=== PATIENT | female | born 1950 | race Caucasian/White ===

== ENCOUNTER 2018-11-10 06:06 | Emergency (ER) | payer MEDICARE ==
[~2018-11-10] VITALS: Ht 177.8 cm; Wt 72.6 kg
[~2018-11-10 06:06] MED LIST: AMBIEN10 MG PO; ASPIRIN81 MG PO; CELEXA40 MG PO; FAMOTIDINE20 MG PO; LASIX40 MG PO; LISINOPRIL10 MG PO; NEURONTIN300 MG PO; NORCO 10-325 T1 EACH PO; SOMA350 MG PO; XANAX XR1 MG PO; ZOCOR20 MG PO
--- OUTSIDE RECORDS SUMMARY | 2018-11-10 06:09 | XMS REPORT ---
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 Allergies, Adverse Reactions, Alerts Allergy Name Allergy Type Status Severity Reaction(s) Onset Date Inactive Date Treating Clinician Comments Penicillins DA Active U 2018-10-05 00:00:00 Penicillins DA Active U 2018-06-13 00:00:00 Penicillins DA Active U 2018-05-20 00:00:00 Penicillins DA Active U 2018-04-01 00:00:00 Medications This patient has no known medications. Encounters Start Date/Time End Date/Time Encounter Type Admission Type Attending Clinicians Care Facility Care Department Encounter ID 2018-11-11 00:00:00 2018-11-11 00:00:00 Outpatient [facility] [id number] 2018-10-21 08:13:34 2018-10-21 08:13:34 Outpatient [facility] [id number] 2018-09-30 14:19:58 2018-09-30 14:19:58 Outpatient [facility] [id number] 2018-09-27 00:00:00 2018-09-27 00:00:00 Outpatient [facility] [id number] 2018-08-27 00:00:00 2018-08-27 00:00:00 Outpatient [facility] [id number] 2018-08-08 11:59:46 2018-08-08 11:59:46 Outpatient [facility] [id number] 2018-07-24 00:00:00 2018-07-24 00:00:00 Outpatient [facility] [id number] 2018-07-05 00:00:00 2018-07-05 00:00:00 Outpatient [facility] [id number] 2018-07-03 00:00:00 2018-07-03 00:00:00 Outpatient [facility] [id number] 2018-06-26 00:00:00 2018-06-26 00:00:00 Outpatient [facility] [id number] 2018-06-17 00:00:00 2018-06-17 00:00:00 Outpatient [facility] [id number] 2018-06-17 00:00:00 2018-06-17 00:00:00 Outpatient [facility] [id number] 2018-06-14 14:26:44 2018-06-14 14:26:44 Outpatient [facility] [id number] 2018-06-14 00:00:00 2018-06-14 00:00:00 Outpatient [facility] [id number] 2018-06-13 00:00:00 2018-06-13 00:00:00 Outpatient [facility] [id number] 2018-06-13 00:00:00 2018-06-13 00:00:00 Outpatient [facility] [id number] 2018-06-07 00:00:00 2018-06-07 00:00:00 Outpatient [facility] [id number] 2018-05-30 13:45:26 2018-05-30 13:45:26 Outpatient [facility] [id number] 2018-05-27 00:00:00 2018-05-27 00:00:00 Outpatient [facility] [id number] 2018-05-23 15:48:45 2018-05-23 15:48:45 Outpatient [facility] [id number] 2018-05-21 00:00:00 2018-05-21 00:00:00 Outpatient [facility] [id number] 2018-04-27 00:00:00 2018-04-27 00:00:00 Outpatient [facility] [id number] 2018-04-25 00:00:00 2018-04-25 00:00:00 Outpatient [facility] [id number] 2018-04-25 00:00:00 2018-04-25 00:00:00 Outpatient [facility] [id number] 2018-04-23 00:00:00 2018-04-23 00:00:00 Outpatient [facility] [id number] 2018-04-18 00:00:00 2018-04-18 00:00:00 Outpatient [facility] [id number] 2018-04-12 14:48:15 2018-04-12 14:48:15 Outpatient [facility] [id number] 2018-04-10 00:00:00 2018-04-10 00:00:00 Outpatient [facility] [id number] 2018-04-03 09:35:26 2018-04-03 09:35:26 Outpatient [facility] [id number] 2018-04-03 00:00:00 2018-04-03 00:00:00 Outpatient [facility] [id number] 2018-03-28 09:45:10 2018-03-28 09:45:10 Outpatient [facility] [id number] 2018-03-22 10:10:13 2018-03-22 10:10:13 Outpatient [facility] [id number] 2018-03-22 08:45:20 2018-03-22 08:45:20 Outpatient [facility] [id number] 2018-03-18 14:23:59 2018-03-18 14:23:59 Outpatient [facility] [id number] 2018-03-18 00:00:00 2018-03-18 00:00:00 Outpatient [facility] [id number] 2018-03-08 00:00:00 2018-03-08 00:00:00 Outpatient [facility] [id number] 2018-02-28 00:00:00 2018-02-28 00:00:00 Outpatient [facility] [id number] 2018-02-27 14:59:40 2018-02-27 14:59:40 Outpatient [facility] [id number] 2018-02-22 15:07:58 2018-02-22 15:07:58 Outpatient [facility] [id number] 2018-02-15 00:00:00 2018-02-15 00:00:00 Outpatient [facility] [id number] 2018-02-13 11:53:30 2018-02-13 11:53:30 Outpatient [facility] [id number] 2018-02-05 15:58:27 2018-02-05 15:58:27 Outpatient [facility] [id number] 2018-02-05 15:11:12 2018-02-05 15:11:12 Outpatient [facility] [id number] 2017-12-10 10:33:47 2017-12-10 10:33:47 Outpatient [facility] [id number] 2017-11-27 10:23:00 2017-11-27 10:23:00 Outpatient [facility] [id number] 2017-11-20 00:00:00 2017-11-20 00:00:00 Outpatient [facility] [id number] 2017-11-13 00:00:00 2017-11-13 00:00:00 Outpatient [facility] [id number] 2017-10-22 11:08:12 2017-10-22 11:08:12 Outpatient [facility] [id number] 2017-10-22 10:42:13 2017-10-22 10:42:13 Outpatient [facility] [id number] 2017-10-19 10:44:52 2017-10-19 10:44:52 Outpatient [facility] [id number] 2017-10-01 09:13:26 2017-10-01 09:13:26 Outpatient [facility] [id number] 2017-09-24 15:40:28 2017-09-24 15:40:28 Outpatient [facility] [id number] 2017-09-24 11:42:18 2017-09-24 11:42:18 Outpatient [facility] [id number] 2017-09-24 11:41:50 2017-09-24 11:41:50 Outpatient [facility] [id number] 2017-09-24 00:00:00 2017-09-24 00:00:00 Outpatient [facility] [id number] 2017-09-17 00:00:00 2017-09-17 00:00:00 Outpatient [facility] [id number] 2017-09-06 15:17:15 2017-09-06 15:17:15 Outpatient [facility] [id number] 2017-08-30 09:54:10 2017-08-30 09:54:10 Outpatient [facility] [id number] 2017-08-30 07:37:48 2017-08-30 07:37:48 Outpatient [facility] [id number] 2017-08-21 00:00:00 2017-08-21 00:00:00 Outpatient [facility] [id number] 2017-08-15 15:14:39 2017-08-15 15:14:39 Outpatient [facility] [id number] 2017-07-20 08:47:04 2017-07-20 08:47:04 Outpatient [facility] [id number] 2017-07-18 00:00:00 2017-07-18 00:00:00 Outpatient [facility] [id number] 2017-06-13 14:27:45 2017-06-13 14:27:45 Outpatient [facility] [id number] 2017-05-31 13:40:04 2017-05-31 13:40:04 Outpatient [facility] [id number] 2017-05-31 13:13:22 2017-05-31 13:13:22 Outpatient [facility] [id number] 2017-05-08 00:00:00 2017-05-08 00:00:00 Outpatient [facility] [id number] 2017-04-25 00:00:00 2017-04-25 00:00:00 Outpatient [facility] [id number] 2017-04-24 14:11:13 2017-04-24 14:11:13 Outpatient [facility] [id number] 2017-04-23 00:00:00 2017-04-23 00:00:00 Outpatient [facility] [id number] 2017-04-18 10:07:31 2017-04-18 10:07:31 Outpatient [facility] [id number] 2017-04-18 08:24:29 2017-04-18 08:24:29 Outpatient [facility] [id number] 2017-04-09 00:00:00 2017-04-09 00:00:00 Outpatient [facility] [id number] 2017-03-30 00:00:00 2017-03-30 00:00:00 Outpatient [facility] [id number] 2017-03-23 12:45:07 2017-03-23 12:45:07 Outpatient [facility] [id number] 2017-03-15 14:19:07 2017-03-15 14:19:07 Outpatient [facility] [id number] 2017-03-09 00:00:00 2017-03-09 00:00:00 Outpatient [facility] [id number] 2017-02-14 08:46:21 2017-02-14 08:46:21 Outpatient [facility] [id number] 2017-02-12 09:57:44 2017-02-12 09:57:44 Outpatient [facility] [id number] 2017-02-05 09:16:05 2017-02-05 09:16:05 Outpatient [facility] [id number] 2017-01-25 00:00:00 2017-01-25 00:00:00 Outpatient [facility] [id number] 2017-01-19 00:00:00 2017-01-19 00:00:00 Outpatient [facility] [id number] 2017-01-09 10:05:48 2017-01-09 10:05:48 Outpatient [facility] [id number] 2016-12-29 10:31:17 2016-12-29 10:31:17 Outpatient [facility] [id number] 2016-12-29 09:43:28 2016-12-29 09:43:28 Outpatient [facility] [id number] 2016-12-28 00:00:00 2016-12-28 00:00:00 Outpatient [facility] [id number] 2016-12-22 00:00:00 2016-12-22 00:00:00 Outpatient [facility] [id number] 2016-12-21 11:13:11 2016-12-21 11:13:11 Outpatient [facility] [id number] 2016-12-19 15:06:33 2016-12-19 15:06:33 Outpatient [facility] [id number] Results Test Description Test Time Test Comments Text Results Atomic Results Result Comments URINALYSIS COMPLETE 2018-10-05 19:54:00 UA COLOR (test code=COLU) LIGHT YELLOW YELLOW UA APPEARANCE (test code=APPU) CLEAR CLEAR UA GLUCOSE DIPSTICK (test code=DGLUU) NEGATIVE mg/dL NEGATIVE UA BILIRUBIN DIPSTICK (test code=BILU) NEGATIVE mg/dL NEGATIVE UA KETONE DIPSTICK (test code=KETU) Negative mg/dL NEGATIVE UA SPECIFIC GRAVITY (test code=SGU) 1.012 1.001-1.035 UA BLOOD DIPSTICK (test code=MADHURI) 1+ (Small) NEGATIVE UA PH DIPSTICK (test code=KASSIE) 5.0 5.0-8.0 UA PROTEIN DIPSTICK (test code=PROU) Negative mg/dL NEGATIVE UA UROBILINIOGEN DIPSTICK (test code=URO) NEGATIVE mg/dL NEGATIVE UA NITRITE DIPSTICK (test code=KIMBERLY) NEGATIVE NEGATIVE UA LEUKOCYTE ESTERASE W REFLEX (test code=LEUUR) TRACE NEGATIVE UA WBC (test code=WBCU) 6-10 #/HPF 0-5 UA RBC (test code=RBCU) 0-2 #/HPF 0-5 UA EPITHELIAL CELLS (test code=EPIU) FEW per HPF FEW UA BACTERIA (test code=BACU) NONE SEEN #/HPF NONE UA MUCUS (test code=MUCU) FEW #/LPF FEW Urine Source? Clean CatchDRUGS OF ABUSE SCREEN [id number] 19:54:00* Test Item Value Reference Range Comments URN COCAINE (test code=COCAURN) NEGATIVE <300 ng/mL URN CANNABINOIDS (test code=CANNABURN) POSITIVE <50 ng/mL This test provides only a preliminary test result. A morespecific alternate chemical method must be used in order toobtain a confirmed analytical result. Gas chromatography/mass spectrometry (GC/MS) is thepreferred confirmatory method. Other chemical confirmationmethods are available. Clinical consideration and professional judgment should be applied to any drug of abusetest result, particularly when preliminary positive resultsare used.Unconfirmed screening results must not be used fornon-medical purposes (e.g., employment testing, legaltesting). URN AMPHETAMINE (test code=AMPHETURN) NEGATIVE <1000 ng/mL URN BARBITURATE (test code=BARBITURN) NEGATIVE <200 ng/mL URN BENZODIAZEPINE (test code=BENZOURN) NEGATIVE <200 ng/mL URN OPIATES (test code=OPIATURN) POSITIVE <300 ng/mL This test provides only a preliminary test result. A morespecific alternate chemical method must be used in order toobtain a confirmed analytical result. Gas chromatography/mass spectrometry (GC/MS) is thepreferred confirmatory method. Other chemical confirmationmethods are available. Clinical consideration and professional judgment should be applied to any drug of abusetest result, particularly when preliminary positive resultsare used.Unconfirmed screening results must not be used fornon-medical purposes (e.g., employment testing, legaltesting). URN PHENCYCLIDINE (PCP) (test code=PHENCURN) NEGATIVE <25 ng/mL URN METHADONE (test code=METHAURN) NEGATIVE <300 ng/mL Urine Source? Clean CatchBASIC METABOLIC [id number] 19:42:00* Test Item Value Reference Range Comments SODIUM (test code=NA) 139 mmol/L 136-145 POTASSIUM (test code=K) 3.7 mmol/L 3.5-5.1 CHLORIDE (test code=CL) 106.0 mmol/L 98-107 CARBON DIOXIDE (test code=CO2) 26.0 mmol/L 21-32 ANION GAP (test code=GAP) 10.7 10-20 GLUCOSE (test code=GLU) 105 mg/dL 74-106 BLOOD UREA NITROGEN (test code=BUN) 10 mg/dL 7-18 GLOMERULAR FILTRATION RATE (test code=GFR) > 60 mL/min >=60 Estimated GFR by using Modified MDRD formula.Chronic kidney disease is defined as either kidney damageor GFR <60 mL/min/1.73 m2 for >3 months. CREATININE (test code=CREAT) 0.90 mg/dL 0.55-1.02 Note change in reference range due to change in reagent. BUN/CREATININE RATIO (test code=BUN/CREA) 11.7 10-20 CALCIUM (test code=CA) 8.8 mg/dL 8.5-10.1 HEPATIC FUNCTION [id number] 19:42:00* Test Item Value Reference Range Comments TOTAL PROTEIN (test code=PROT) 7.3 gram/dL 6.4-8.2 ALBUMIN (test code=ALB) 3.5 g/dL 3.4-5.0 GLOBULIN (test code=GLOB) 3.8 gram/dL 2.7-4.2 ALBUMIN/GLOBULIN RATIO (test code=A/G) 0.9 0.75-1.50 BILIRUBIN TOTAL (test code=BILT) 0.30 mg/dL 0.0-1.0 BILIRUBIN DIRECT (test code=BILD) 0.07 mg/dL 0.0-0.20 SGOT/AST (test code=AST) 20 IUnit/L 15-37 SGPT/ALT (test code=ALT) 22 IUnit/L 12-78 ALKALINE PHOSPHATASE TOTAL (test code=ALKP) 56 IUnit/L 45-117 Note change in reference range due to change in reagent. [id number] 19:42:00* Test Item Value Reference Range Comments ACETAMINOPHEN (test code=ACET) < 10 mcg/mL 10-30 A RANGE OF 10-30 mcg/mL IS A THERAPEUTIC RANGE. TOXIC CONCENTRATIONS: >150 mcg/mL AT 4 HOURS AFTER INGESTION >=50 mcg/mL AT 12 HOURS AFTER INGESTION [id number] 19:42:00* Test Item Value Reference Range Comments SALICYLATE (test code=JAZLYN) 1.9 mg/dL 2.8-20.0 [id number] 19:42:00* Test Item Value Reference Range Comments ALCOHOL (test code=ALC) < 3 mg/dL 0.0-3.0 INTERPRETIVE DATA NOTE: POSITIVE SCREENING RESULTS SHOULD BE CONSIDERED PRESUMPTIVE.WHEN COLLECTED FOR MEDICAL PURPOSES ONLY. SPECIMEN WILL NOTBE COLLECTED BY CHAIN OF CUSTODY.IF A CONFIRMATION OF POSITIVE RESULTS IS DESIRED, ACONFIRMATION TEST MUST BE REQUESTED BY THE PHYSICIAN AT ANADDITIONAL CHARGE TO THE PATIENT. URINALYSIS [id number] 18:40:00* Test Item Value Reference Range Comments UA COLOR (test code=COLU) LIGHT YELLOW YELLOW UA APPEARANCE (test code=APPU) CLEAR CLEAR UA GLUCOSE DIPSTICK (test code=DGLUU) NEGATIVE mg/dL NEGATIVE UA BILIRUBIN DIPSTICK (test code=BILU) NEGATIVE mg/dL NEGATIVE UA KETONE DIPSTICK (test code=KETU) Negative mg/dL NEGATIVE UA SPECIFIC GRAVITY (test code=SGU) 1.012 1.001-1.035 UA BLOOD DIPSTICK (test code=MADHURI) 1+ (Small) NEGATIVE UA PH DIPSTICK (test code=KASSIE) 5.0 5.0-8.0 UA PROTEIN DIPSTICK (test code=PROU) Negative mg/dL NEGATIVE UA UROBILINIOGEN DIPSTICK (test code=URO) NEGATIVE mg/dL NEGATIVE UA NITRITE DIPSTICK (test code=KIMBERLY) NEGATIVE NEGATIVE UA LEUKOCYTE ESTERASE W REFLEX (test code=LEUUR) TRACE NEGATIVE UA WBC (test code=WBCU) 6-10 #/HPF 0-5 UA RBC (test code=RBCU) 0-2 #/HPF 0-5 UA EPITHELIAL CELLS (test code=EPIU) FEW per HPF FEW UA BACTERIA (test code=BACU) NONE SEEN #/HPF NONE UA MUCUS (test code=MUCU) FEW #/LPF FEW Urine Source? Clean CatchDRUGS OF ABUSE SCREEN [id number] 18:40:00* Test Item Value Reference Range Comments URN COCAINE (test code=COCAURN) <300 ng/mL URN CANNABINOIDS (test code=CANNABURN) <50 ng/mL URN AMPHETAMINE (test code=AMPHETURN) <1000 ng/mL URN BARBITURATE (test code=BARBITURN) <200 ng/mL URN BENZODIAZEPINE (test code=BENZOURN) <200 ng/mL URN OPIATES (test code=OPIATURN) <300 ng/mL URN PHENCYCLIDINE (PCP) (test code=PHENCURN) <25 ng/mL URN METHADONE (test code=METHAURN) <300 ng/mL Urine Source? Clean CatchURINALYSIS [id number] 18:33:00* Test Item Value Reference Range Comments UA COLOR (test code=COLU) LIGHT YELLOW YELLOW UA APPEARANCE (test code=APPU) CLEAR CLEAR UA GLUCOSE DIPSTICK (test code=DGLUU) NEGATIVE mg/dL NEGATIVE UA BILIRUBIN DIPSTICK (test code=BILU) NEGATIVE mg/dL NEGATIVE UA KETONE DIPSTICK (test code=KETU) Negative mg/dL NEGATIVE UA SPECIFIC GRAVITY (test code=SGU) 1.012 1.001-1.035 UA BLOOD DIPSTICK (test code=MADHURI) 1+ (Small) NEGATIVE UA PH DIPSTICK (test code=KASSIE) 5.0 5.0-8.0 UA PROTEIN DIPSTICK (test code=PROU) Negative mg/dL NEGATIVE UA UROBILINIOGEN DIPSTICK (test code=URO) NEGATIVE mg/dL NEGATIVE UA NITRITE DIPSTICK (test code=KIMBERLY) NEGATIVE NEGATIVE UA LEUKOCYTE ESTERASE W REFLEX (test code=LEUUR) TRACE NEGATIVE UA WBC (test code=WBCU) per HPF 0-5 Urine Source? Clean CatchDRUGS OF ABUSE SCREEN [id number] 18:33:00* Test Item Value Reference Range Comments URN COCAINE (test code=COCAURN) <300 ng/mL URN CANNABINOIDS (test code=CANNABURN) <50 ng/mL URN AMPHETAMINE (test code=AMPHETURN) <1000 ng/mL URN BARBITURATE (test code=BARBITURN) <200 ng/mL URN BENZODIAZEPINE (test code=BENZOURN) <200 ng/mL URN OPIATES (test code=OPIATURN) <300 ng/mL URN PHENCYCLIDINE (PCP) (test code=PHENCURN) <25 ng/mL URN METHADONE (test code=METHAURN) <300 ng/mL Urine Source? Clean CatchCBC W/O [id number] 18:28:00* Test Item Value Reference Range Comments WHITE BLOOD CELL (test code=WBC) 7.5 K/mm3 4.5-12.5 RED BLOOD CELL (test code=RBC) 4.10 mill/mm3 3.7-5.2 HEMOGLOBIN (test code=HGB) 12.1 gram/dL 11.5-15.5 HEMATOCRIT (test code=HCT) 37.6 % 36.0-46.0 MEAN CELL VOLUME (test code=MCV) 91.7 fL 80-98 MEAN CELL HGB (test code=MCH) 29.5 picogram 27.0-33.0 MEAN CELL HGB CONCETRATION (test code=MCHC) 32.2 gram/dL 33.0-36.0 RED CELL DISTRIBUTION WIDTH (test code=RDW) 13.3 % 11.6-16.2 PLATELET COUNT (test code=PLT) 265 K/mm3 150-450 MEAN PLATELET VOLUME (test code=MPV) 11.1 fL 6.7-11.0 CBC W/O [id number] 18:26:00* Test Item Value Reference Range Comments WHITE BLOOD CELL (test code=WBC) K/mm3 4.5-12.5 RED BLOOD CELL (test code=RBC) mill/mm3 3.7-5.2 HEMOGLOBIN (test code=HGB) 12.1 gram/dL 11.5-15.5 HEMATOCRIT (test code=HCT) 37.6 % 36.0-46.0 MEAN CELL VOLUME (test code=MCV) fL 80-98 MEAN CELL HGB (test code=MCH) picogram 27.0-33.0 MEAN CELL HGB CONCETRATION (test code=MCHC) gram/dL 33.0-36.0 RED CELL DISTRIBUTION WIDTH (test code=RDW) % 11.6-16.2 PLATELET COUNT (test code=PLT) K/mm3 150-450 MEAN PLATELET VOLUME (test code=MPV) fL 6.7-11.0 - CTA [id number] 10:15:00 Name: JOSE MIGUEL BLAS [facility] : 1950 Age/S: 68 / F [address] [facility] Unit #: [id number] Loc: [place] Sharma [address] Phys: Alivia Escobedo NP Acct: [id number] Dis Date: Status: ADM IN PHONE #: [phone] Exam Date: 09/25/2018947 FAX #: [phone] Reason: COPD, SOB, R/O PE EXAMS: CPT CODE: [id number] CTA CHEST 78642 HISTORY: COPD with shortness of breath. COMPARISON: Chest x-ray from previous day. CTA CHEST: 100 mL of Isovue-370. Automated exposure control. 3-D images. No aortic aneurysm. No dissection. No pulmonary embolism. Well-opacified SVC. Well-opacified neck vasculature. Thyroid glands are normal. Esophageal wall is not thickened. No pathologic adenopathy. Cardiac silhouette is mildly enlarged. No pericardial effusion. Visualized upper abdomen is unremarkable. Subcutaneous tissues and the musculature are normal in appearance. No lytic or blastic lesions are noted within the bony skeleton. The lungs are clear of infiltrates, effusion or congestion. Groundglass opacities within the upper lobes inferiorly is nonspecific finding. Dependent changes. No bronchiectasis, honeycombing or fibrosis or endobronchial lesions. IMPRESSION: No pulmonary embolism with unremarkable aorta. Minimal groundglass opacities in the upper lobes medially of unclear significance without consolidation or effusion or congestion. No pathologic adenopathy. at 1015 Reported and signed by: Kali Bee M.D. CC: Alivia Hayes NP; Rabia Turpin MD; Vick Alegria MD Technologist:Marco Antonio Denney RT(R),(MR),(CT); CTDI: DLP: Trnscb Date/Time: 09/25/2018 (1015) t .SDR.TH4 Orig Print D/T: S: 09/25/2018 (1018) CTDI: DLP: PAGE 1 Signed Report BASIC METABOLIC [id number] 06:00:00* Test Item Value Reference Range Comments SODIUM (test code=NA) 141 mmol/L 136-145 POTASSIUM (test code=K) 3.9 mmol/L 3.5-5.1 CHLORIDE (test code=CL) 107.0 mmol/L 98-107 CARBON DIOXIDE (test code=CO2) 26.0 mmol/L 21-32 ANION GAP (test code=GAP) 11.9 10-20 GLUCOSE (test code=GLU) 137 mg/dL 74-106 BLOOD UREA NITROGEN (test code=BUN) 11 mg/dL 7-18 GLOMERULAR FILTRATION RATE (test code=GFR) > 60 mL/min >=60 Estimated GFR by using Modified MDRD formula.Chronic kidney disease is defined as either kidney damageor GFR <60 mL/min/1.73 m2 for >3 months. CREATININE (test code=CREAT) 0.70 mg/dL 0.55-1.02 Note change in reference range due to change in reagent. BUN/CREATININE RATIO (test code=BUN/CREA) 15.6 10-20 CALCIUM (test code=CA) 8.9 mg/dL 8.5-10.1 BASIC METABOLIC [id number] 05:35:00* Test Item Value Reference Range Comments SODIUM (test code=NA) 141 mmol/L 136-145 POTASSIUM (test code=K) 3.9 mmol/L 3.5-5.1 CHLORIDE (test code=CL) 107.0 mmol/L 98-107 CARBON DIOXIDE (test code=CO2) mmol/L 21-32 ANION GAP (test code=GAP) 10-20 GLUCOSE (test code=GLU) mg/dL 74-106 BLOOD UREA NITROGEN (test code=BUN) mg/dL 7-18 GLOMERULAR FILTRATION RATE (test code=GFR) mL/min >=60 CREATININE (test code=CREAT) mg/dL 0.55-1.02 BUN/CREATININE RATIO (test code=BUN/CREA) 10-20 CALCIUM (test code=CA) mg/dL 8.5-10.1 [id number] 20:45:00* Test Item Value Reference Range Comments TROPONIN-I (test code=TROPI) 0.040 ng/mL 0-0.045 COMMENTS TO RENT AND HOUSING INVESTIGATOR: COLLECT 3 HOURS AFTER PREVIOUS [id number] 16:49:00* Test Item Value Reference Range Comments TROPONIN-I (test code=TROPI) 0.077 ng/mL 0-0.045 COMMENTS TO RENT AND HOUSING INVESTIGATOR: COLLECT 3 HOURS AFTER PREVIOUS [id number] 16:28:00* Test Item Value Reference Range Comments GLYCOSYLATED HEMOGLOBIN (HA1C) (test code=GLYHGB) 5.6 % HbA1 4.8-6.0 ESTIMATED AVERAGE GLUCOSE (test code=EAG) 114 MG/DL LIPID PROFILE (CORONARY RISK)2018-09-24 14:51:00* Test Item Value Reference Range Comments TRIGLYCERIDES (test code=TRIG) 82 mg/dL 20-150 CHOLESTEROL (test code=CHOL) 192 mg/dL 0-200 CHOLESTEROL/HDL RATIO (test code=CHOLHDL) 2.0 RATIO 0-4.9 RISK ASSOCIATED WITH CHOL/HDL RATIOS: Risk Male Female1/2 AVERAGE 3.43 3.27AVERAGE 4.97 4.442X AVERAGE 9.55 7.053X AVERAGE 23.39 11.04 REFERENCE VALUE IS RELATED TO RISK LEVELS ASRECOMMENDED BY THE OLEKSANDR. HEART, LUNG, AND BLOOD INST. HDL CHOLESTEROL (test code=HDL) 65 mg/dL 40-60 LIPOPROTEIN LDL (test code=LDL) 111 mg/dL 100-129 RN PERSONNEL, CONTACT PHYSICIAN IMMEDIATELY IF THIS IS A STROKE, AMI OR CAROTID STENOSIS PATIENT WHEN THE LDL >100 (1ST OCCURENCE, THIS ADMISSION) Reference Interval: mg/dL mmol/L Optimal <100 <2.6Near/above optimal 100-129 2.6- 3.3Borderline High 130-159 3.4-4.1High 160-189 4.1-4.9Very High >=190 >=4.9=========This LDL result is a direct measurement.========= THYROID PROFILE [id number] 14:51:00* Test Item Value Reference Range Comments T3 UPTAKE (test code=T3UP) 36.0 % 30.0-40.0 T4 (THYROXINE) (test code=T4) 9.5 ug/dL 4.5-13.9 T7 (FREE THYROXINE INDEX) (test code=T7) 3.42 FTI 1.3-5.1 THYROID STIMULATING HORMONE (test code=TSH) 1.240 uIU/mL 0.36-3.74 TSH REFERENCE RANGES: EUTHYROID: 0.35 - 4.3 mIU/mL HYPO : > 5.5 mIU/mL HYPER : < 0.35 mIU/mL BASIC METABOLIC [id number] 10:51:00* Test Item Value Reference Range Comments SODIUM (test code=NA) 141 mmol/L 136-145 POTASSIUM (test code=K) 3.3 mmol/L 3.5-5.1 CHLORIDE (test code=CL) 106.0 mmol/L 98-107 CARBON DIOXIDE (test code=CO2) 25.0 mmol/L 21-32 ANION GAP (test code=GAP) 13.3 10-20 GLUCOSE (test code=GLU) 151 mg/dL 74-106 BLOOD UREA NITROGEN (test code=BUN) 9 mg/dL 7-18 GLOMERULAR FILTRATION RATE (test code=GFR) > 60 mL/min >=60 Estimated GFR by using Modified MDRD formula.Chronic kidney disease is defined as either kidney damageor GFR <60 mL/min/1.73 m2 for >3 months. CREATININE (test code=CREAT) 0.80 mg/dL 0.55-1.02 Note change in reference range due to change in reagent. BUN/CREATININE RATIO (test code=BUN/CREA) 10.7 10-20 CALCIUM (test code=CA) 8.3 mg/dL 8.5-10.1 HEPATIC FUNCTION [id number] 10:51:00* Test Item Value Reference Range Comments TOTAL PROTEIN (test code=PROT) 7.4 gram/dL 6.4-8.2 ALBUMIN (test code=ALB) 3.5 g/dL 3.4-5.0 GLOBULIN (test code=GLOB) 3.9 gram/dL 2.7-4.2 ALBUMIN/GLOBULIN RATIO (test code=A/G) 0.9 0.75-1.50 BILIRUBIN TOTAL (test code=BILT) 0.40 mg/dL 0.0-1.0 BILIRUBIN DIRECT (test code=BILD) 0.07 mg/dL 0.0-0.20 SGOT/AST (test code=AST) 27 IUnit/L 15-37 SGPT/ALT (test code=ALT) 28 IUnit/L 12-78 ALKALINE PHOSPHATASE TOTAL (test code=ALKP) 65 IUnit/L 45-117 Note change in reference range due to change in reagent. [id number] 10:51:00* Test Item Value Reference Range Comments LIPASE (test code=LIP) 80 U/L 73.0-393.0 [id number] 10:51:00* Test Item Value Reference Range Comments TROPONIN-I (test code=TROPI) 0.101 ng/mL 0-0.045 Results called to [id number] by DAGO 09/24/18 1050Critical results verified and read back by Nurse? Y B-TYPE NATRIURETIC [id number] 10:47:00* Test Item Value Reference Range Comments B-TYPE NATRIURETIC PEPTIDE (test code=BNP) 56.79 pgram/mL 0-100 BASIC METABOLIC [id number] 10:36:00* Test Item Value Reference Range Comments SODIUM (test code=NA) 141 mmol/L 136-145 POTASSIUM (test code=K) 3.3 mmol/L 3.5-5.1 CHLORIDE (test code=CL) 106.0 mmol/L 98-107 CARBON DIOXIDE (test code=CO2) mmol/L 21-32 ANION GAP (test code=GAP) 10-20 GLUCOSE (test code=GLU) mg/dL 74-106 BLOOD UREA NITROGEN (test code=BUN) mg/dL 7-18 GLOMERULAR FILTRATION RATE (test code=GFR) mL/min >=60 CREATININE (test code=CREAT) mg/dL 0.55-1.02 BUN/CREATININE RATIO (test code=BUN/CREA) 10-20 CALCIUM (test code=CA) mg/dL 8.5-10.1 HEPATIC FUNCTION [id number] 10:36:00* Test Item Value Reference Range Comments TOTAL PROTEIN (test code=PROT) gram/dL 6.4-8.2 ALBUMIN (test code=ALB) g/dL 3.4-5.0 GLOBULIN (test code=GLOB) gram/dL 2.7-4.2 ALBUMIN/GLOBULIN RATIO (test code=A/G) 0.75-1.50 BILIRUBIN TOTAL (test code=BILT) mg/dL 0.0-1.0 BILIRUBIN DIRECT (test code=BILD) mg/dL 0.0-0.20 SGOT/AST (test code=AST) IUnit/L 15-37 SGPT/ALT (test code=ALT) IUnit/L 12-78 ALKALINE PHOSPHATASE TOTAL (test code=ALKP) IUnit/L 45-117 [id number] 10:36:00* Test Item Value Reference Range Comments LIPASE (test code=LIP) U/L 73.0-393.0 [id number] 10:36:00* Test Item Value Reference Range Comments TROPONIN-I (test code=TROPI) ng/mL 0-0.045 CBC W/O [id number] 10:11:00* Test Item Value Reference Range Comments WHITE BLOOD CELL (test code=WBC) 13.7 K/mm3 4.5-12.5 RED BLOOD CELL (test code=RBC) 4.12 mill/mm3 3.7-5.2 HEMOGLOBIN (test code=HGB) 12.3 gram/dL 11.5-15.5 HEMATOCRIT (test code=HCT) 38.6 % 36.0-46.0 MEAN CELL VOLUME (test code=MCV) 93.7 fL 80-98 MEAN CELL HGB (test code=MCH) 29.9 picogram 27.0-33.0 MEAN CELL HGB CONCETRATION (test code=MCHC) 31.9 gram/dL 33.0-36.0 RED CELL DISTRIBUTION WIDTH (test code=RDW) 13.2 % 11.6-16.2 PLATELET COUNT (test code=PLT) 236 K/mm3 150-450 MEAN PLATELET VOLUME (test code=MPV) 11.1 fL 6.7-11.0 CBC W/O [id number] 10:08:00* Test Item Value Reference Range Comments WHITE BLOOD CELL (test code=WBC) K/mm3 4.5-12.5 RED BLOOD CELL (test code=RBC) mill/mm3 3.7-5.2 HEMOGLOBIN (test code=HGB) 12.3 gram/dL 11.5-15.5 HEMATOCRIT (test code=HCT) 38.6 % 36.0-46.0 MEAN CELL VOLUME (test code=MCV) fL 80-98 MEAN CELL HGB (test code=MCH) picogram 27.0-33.0 MEAN CELL HGB CONCETRATION (test code=MCHC) gram/dL 33.0-36.0 RED CELL DISTRIBUTION WIDTH (test code=RDW) % 11.6-16.2 PLATELET COUNT (test code=PLT) K/mm3 150-450 MEAN PLATELET VOLUME (test code=MPV) fL 6.7-11.0 TROPONIN I [id number] 10:02:00* Test Item Value Reference Range Comments TROPONIN I RAPID (test code=TROPIRAP) 0.02 ng/mL <0.08 Please Note New Reference Range 0.00-0.079 ng/mL - Negative>or=0.08 ng/mL - Positive The use of serial sampling and testing protocol is arecommended practice.An elevated troponin level alone is often not sufficient fordiagnosis of myocardial infarction. Troponin results obtained by different assays may vary.Evaluation of the extent of myocardial damage based onincrease of troponin would be valid only if similarmethodology is used. - XR CHEST 1 [id number] 09:50:00 FAX: Vick Alegria MD [phone] [place]: St: REG FAX: Chandra Leonard Name: JOSE MIGUEL BLAS [facility] : 1950 Age/S: 68/F Rosa Lim Formerly [facility], [facility] Unit #: [id number] Loc: [place] [place] [address] Phys: Chandra Leonard MD Acct: [id number] Dis Date: Status: REG ER PHONE #: [phone] Exam Date: 09/24/2018 0942 FAX #: [phone] Reason: CHEST PAIN EXAMS: CPT CODE: [id number] XR CHEST 1 V 01902 HISTORY: Chest pain. COMPARISON: Chest x-ray from December 02, 2013. No acute infiltrates, effusion or congestion is noted. COPD. Mild cardiomegaly. IMPRESSION: No acute infiltrates, effusion or congestion. at 0950 Reported and signed by: Kali Bee M.D. CC: Vick Alegria MD; Chandra Leonard MD Technologist: Osito DAVID(R) Trnscrd Date/Time/By: 09/24/2018 (2050) : By: [email or web address] Orig Print D/T: S: 09/24/2018 (1053) PAGE 1 Signed Report
--- OUTSIDE RECORDS SUMMARY | 2018-11-10 06:09 | XMS REPORT | Summary of Care ---
Author Author KASANDRA Gracia, [facility] Organization Unknown Address Unknown Phone Unavailable Care Team Providers Care Base Filler Name Role Phone R.N. 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 Low back pain (724.2, M54.5) Status: Active Right knee pain (719.46, M25.561) Status: Active Abnormality of gait and mobility (781.2, R26.9) Status: Active Pain of right upper extremity (729.5, M79.601) Status: Active Acute hip pain, right (719.45, M25.551) Status: Active Ataxia (781.3, R27.0) Status: Active Fall at home (E888.9, W19.XXXA) Status: Active Traumatic injury of head, initial encounter (959.01, S09.90XA) Status: Active Medications Name Dates Details Medications not documented Allergies and Adverse Reactions Name Dates Details Allergy history not documented Status: Procedures Procedure Dates Details XRAY Humerus AP lateral 04104 Date: 15-May-2018 XRAY Hip min 2 views 23175 Date: 15-May-2018 MRI Brain wo contrast 26368 Date: 15-May-2018 Immunization Name Dates Details Immunizations not documented Social History Name Dates Details Unknown if ever smoked Vital Signs Date Test Result Details No Known Vitals to report Results Date Description Value Details [id number] XRAY Humerus AP lateral 81752 Humerus AP lateral SEE NOTES Comments: EXAM: XR HUMERUS 2 VIEWSDATE: 05/15/2018 3:23 PM CDTINDICATION: pain in right arm. - humerus xrCOMPARISON: NoneTECHNIQUE: AP and lateral radiographs of the humerusLaterality: RightFINDINGS: No acute fracture or malalignment is identified. No narrowing ofsubacromial space. Small osteophytes of the shoulder.No soft tissue abnormality is identified.IMPRESSION: Normal exam of the right humerus.--Read by: Eduardo Roca MDDictated Date/time: 05/15/18 16:23Electronically Signed by: Eduardo Roca MD 05/15/1816:23FINAL REPORT [id number] Hip 2/3 views uni DX SEE NOTES Comments: EXAM: XR HIP 2 VIEW AND AP PELVISDATE: 05/15/2018 3:23 PM CDTINDICATION: pain in right hip - hip xrCOMPARISON: Right hip series 07/26/2017TECHNIQUE: 2 views of the hip and a single AP radiograph of the pelvisLaterality: RightFINDINGS: No acute bone abnormality identified. Unchanged, satisfactoryappearance of right total hip arthroplasty. No hardware complicationidentified. Visualized portions of left total hip arthroplasty is satisfactoryin appearance.Severe spondylosis of lower lumbar spine.IMPRESSION: Unchanged, satisfactory appearance of right total hip arthroplasty.--Read by: Eduardo Roca MDDictated Date/time: 05/15/18 16:24Electronically Signed by: Eduardo Roca MD 05/15/1816:25FINAL REPORT [id number] MRI Brain wo contrast [id number] Brain wo contrast MRI SEE NOTES Comments: EXAM: Brain wo contrast MRIDATE: 05/15/2018 16:05INDICATION: ataxia, unspecified. unspecified fall, initial encounter.unspecified injury of head, initial encounter. .COMPARISON: CT brain 02/17/2018TECHNIQUE: Multiplanar multisequence images of the brain were obtained withoutcontrast administration.DISCUSSION:Few hyperintense T2 lesions in the supratentorial white matter consistent withsmall vessel disease. No acute hemorrhage, hydrocephalus or midline shift. Norestricted diffusion.Partial empty sella. The pineal region, craniocervical junction, orbits andinternal auditory canals are unremarkable. Major intracranial flow voids arewell- maintained.Opacification of some paranasal sinuses.IMPRESSION:No acute intracranial abnormality. Partial empty sella.--Read by: Magaly Cheek MDDictated Date/time: 05/16/18 00:27Electronically Signed by: Magaly Cheek MD 05/16/1800:34FINAL REPORT Plan of Care Name Dates Details Planned Observations Planned Goals not documented Planned Encounters Neurology Referral Appointment; DONNIE MAHONEY D.O. On: 11-Jun-2018 10:00 Instructions Name Dates Details Instructions not documented Encounters Appointment; CONTRERAS SLAUGHTER M.D. Encounter Diagnosis: Problem not documented On: 18-Feb-2018 11:00 Appointment; CONTRERAS SLAUGHTER M.D. Encounter Diagnosis: Problem not documented On: 02-Apr-2018 8:30 Appointment; CONTRERAS SLAUGHTER M.D. Encounter Diagnosis: Problem not documented On: 24-Apr-2018 9:00 Appointment; CONTRERAS SLAUGHTER M.D. Encounter Diagnosis: Problem not documented On: 09-May-2018 9:30 Appointment; CONTRERAS SLAUGHTER M.D. Encounter Diagnosis: Problem not documented On: 15-May-2018 14:30 Appointment; CONTRERAS SLAUGHTER M.D. Encounter Diagnosis: Problem not documented On: 22-May-2018 13:30 Appointment; CONTRERAS SLAUGHTER M.D. Encounter Diagnosis: Problem not documented On: 29-May-2018 13:00 Appointment; CONTRERAS SLAUGHTER M.D. Encounter Diagnosis: Problem not documented On: 05-Jun-2018 13:00
--- NOTE | 2018-11-10 06:19 | NUR ---
PT STATES SHE ALSO HAS DENTAL CARIES AND REQUESTING RX FOR ANTIBX SO SHE CAN GO TO DENTIST NEXT WEEK
--- OUTSIDE RECORDS SUMMARY | 2018-11-10 06:41 | XMS REPORT | Clinical Summary ---
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 MICROSCOPIC (04/12/2018 3:31 PM CDT) WBC >50 (H) 0 - 5 /HPF [facility] RBC 11-21 0 - 4 /HPF [facility] Epithelial Cell <1 /HPF [facility] Bacteria Moderate [facility] Performing Organization Address [facility] Phone Number JOOR [facility] * UA CHEMISTRIES (04/12/2018 3:31 PM CDT) Only the most recent of 2 results within the time period is included. Color Yellow [facility] Clarity Clear [facility] Spec [place] 1.010 1.001 - 1.035 [facility] pH 6.5 5 - 8 [facility] Protein Negative NEG [facility] Glucose Negative NEG [facility] Ketone Negative NEG [facility] Bilirubin Negative NEG [facility] Nitrate Negative NEG [facility] Urobilinogen 0.2 0.2 - 1.0 EU/dL [facility] Leukocyte 2+ (A) NEG [facility] Blood 2+ (A) NEG [facility] Specimen Urine Performing Organization Address [facility] Phone Number [facility] * URINE CULTURE (04/12/2018 3:20 PM CDT) Only the most recent of 2 results within the time period is included. Spec Urine [facility] Description Order Comments None [facility] Culture 1,000-10,000 CFU/ml MICROBIOLOGY Streptococcus species Report Status Final 04/14/2018 MICROBIOLOGY Specimen Urine - URINE Performing Organization Address [facility] Phone Number VINAY [facility] BT MICROBIOLOGY * CT HEAD W/O CONTRAST (04/03/2018 10:36 AM CDT) Impressions Performed At IMPRESSION: SMS No acute abnormalities. No changes when compared to the previous studies. Chronic findings: 1.Mild generalized volume loss. 2.Mild supratentorial white matter small vessel ischemic changes. 3.Incidental atherosclerotic calcifications in the carotid siphons. Signed By: Haider Akhtar MD, 04/03/2018 11:04 AM Narrative Performed At Exam : Head CT without contrast SMS History: multiple falls, headache Comparison studies: Head CT on 02/02/2016, cervical and intracranial CTAs on 11/17/2016. Technique: Axial scans were obtained from skull base to the vertex. Coronal and sagittal reconstructions obtained from the axial data. IV Contrast: None Complications: None Radiation Dose: Total DLP: 859.97 mGy*cm. Estimated Effective Dose: DLP x 0.0021 mSv FINDINGS: See impression Procedure Note Interface, Rad/Mammog In - 04/03/2018 11:09 AM CDT Exam : Head CT without contrast History: multiple falls, headache Comparison studies: Head CT on 02/02/2016, cervical and intracranial CTAs on 11/17/2016. Technique: Axial scans were obtained from skull base to the vertex. Coronal and sagittal reconstructions obtained from the axial data. IV Contrast: None Complications: None Radiation Dose: Total DLP: 859.97 mGy*cm. Estimated Effective Dose: DLP x 0.0021 mSv FINDINGS: See impression IMPRESSION IMPRESSION: No acute abnormalities. No changes when compared to the previous studies. Chronic findings: 1. Mild generalized volume loss. 2. Mild supratentorial white matter small vessel ischemic changes. 3. Incidental atherosclerotic calcifications in the carotid siphons. Signed By: Haider Akhtar MD, 04/03/2018 11:04 AM Performing Organization Address [facility] Phone Number SMS * CREATININE (03/22/2018 10:06 AM CDT) Creatinine 1.10 0.6 - 1.2 mg/dL BT [facility] 1 GFR, Estimated 49 mL/min/1.73 m2 BT [facility] 1 GFR, Estim, 60 mL/min/1.73 m2 BT [facility] Afr-Am 1 Specimen Blood Performing Organization Address [facility] Phone Number MISYS [facility] 1 * 12 LEAD EKG (03/22/2018 9:23 AM CDT) 12 LEAD EKG FOR [facility] Test Date:2018-03-22 Pat Name: JOSE MIGUEL Vega partment: Room: 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 Measurements Intervals [place] Rate: 64 P:62 WI: 160 QRS: 42 QRSD: 92 T:74 QT: 427 QTc:441 Interpretive Statements SINUS RHYTHM Electronically Signed On 03-22-18 10:20:40 CDT by Laurence Hughes M.D. Performing Organization Address [facility] Phone Number SMS * LIVER PROFILE (03/22/2018 9:22 AM CDT) Only the most recent of 2 results within the time period is included. T Protein 7.1 6.0 - 8.3 g/dL BT [facility] 1 Albumin 4.5 3.7 - 5.3 g/dL BT [facility] 1 T Bilirubin 0.4 0.2 - 1.2 mg/dL BT [facility] 1 Alk Phos 54 34 - 104 U/L BT [facility] 1 AST 25 13 - 39 U/L BT MAIN[facility] 1 ALT 20 7 - 52 U/L BT [facility] 1 D Bilirubin 0.1 0.0 - 0.2 mg/dL BT [facility] 1 Specimen Blood Performing Organization Address [facility] Phone Number MISYS BT MAIN-STATION 1 * BASIC METABOLIC PANEL (03/22/2018 9:22 AM CDT) Only the most recent of 2 results within the time period is included. CO2 28 21 - 31 mmol/L BT [facility] 1 Chloride 103 98 - 107 mmol/L BT [facility] 1 Potassium 4.4 3.5 - 5.1 mmol/L BT [facility] 1 Sodium 141 136 - 145 mmol/L BT [facility] 1 Glucose 94 70 - 110 mg/dL BT [facility] 1 Urea Nitrogen 16 7 - 25 mg/dL BT [facility] 1 Creatinine 1.10 0.6 - 1.2 mg/dL BT [facility] 1 Anion Gap 10 BT [facility]IN[facility] 1 Calcium 9.7 8.6 - 10.3 mg/dL BT [facility] 1 GFR, Estimated 49 mL/min/1.73 m2 BT [facility]IN[facility] 1 GFR, Estim, 60 mL/min/1.73 m2 BT [facility] Afr-Am 1 Specimen Blood Performing Organization Address [facility] Phone Number JOOR [facility] 1 * METHYLMALONIC ACID (02/05/2018 3:54 PM CDT) Methylmalonic 124 LABORATORY Acid Reference range: 0 to 378 [facility] OF Unit: nmol/L [place] Specimen Blood Performing Organization Address [facility] Phone Number [facility] [address], [place] [id number] [place] 145 * VITAMIN B12 (02/05/2018 3:54 PM CDT) Vitamin B12 895 211 - 911 pg/mL BT [facility]IN[facility]ATION 1 Specimen Blood Performing Organization Address [facility] Phone Number OximityYS BT MAIN-STATION 1 after 11/09/2017 Insurance Type Payer Benefit Subscriber ID Effective Phone Address Plan / Dates Group MEDICARE MEDICARE xxxxxxxxxxx 2010-P [phone] [id number] [place] [address] Advance Directives For more information, please contact: [address] [address] Date Inactivated Comments Code Status Date Activated 09/17/2010 6:28 PM Full Code 09/13/2010 2:58 PM
--- NOTE | 2018-11-10 06:51 | NUR ---
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 patient in CT.
--- NOTE | 2018-11-10 07:27 | Diagnostic Imaging Report ---
History:Fall Comparison studies:None Technique: Axial images were obtained from the skull base to the vertex. Coronal and sagittal images reconstructed from the axial data. Intravenous contrast: None Dose modulation, iterative reconstruction, and/or weight based adjustment of the mA/kV was utilized to reduce the radiation dose to as low as reasonably achievable. Findings: Scalp/skull: Right parietal scalp hematoma. Extra-axial spaces: No masses. No fluid collections. Brain sulci: Mildly prominent. Ventricles: Mild compensatory dilatation. No hydrocephalus. Parenchyma: Few hypodensities in the supratentorial white matter are small vessel ischemic changes. No masses, hemorrhage, acute or chronic cortical vascular insults. Sellar/suprasellar region: No abnormalities. Craniocervical junction: Patent foramen magnum. No Chiari one malformation. Incidental findings: Atherosclerotic calcifications in the carotid siphons . Impression: No acute intracranial abnormalities. Right parietal scalp hematoma Chronic findings: 1. Mild generalized volume loss. 2. Mild supratentorial white matter small vessel ischemic changes. Signed by: DR Adryan Russo M.D. on 11/10/2018 7:44 AM
--- NOTE | 2018-11-10 07:48 | Diagnostic Imaging Report ---
History: Fall Comparison studies: None Technique: Axial images were obtained through the cervical region.. Coronal and sagittal images reconstructed from the axial data.. Intravenous contrast: None Dose modulation, iterative reconstruction, and/or weight based adjustment of the mA/kV was utilized to reduce the radiation dose to as low as reasonably achievable. Findings: Fractures: None. Soft tissues: No gross abnormalities. Small calcification of the ligamentum nuchae. Atlantoaxial articulation: No acute abnormality. Alignment: Normal lordosis. No scoliosis. Cervicomedullary junction: No abnormalities. The foramen magnum is patent. Vertebrae: No infection or neoplasm. Degenerative changes: Multilevel foraminal narrowing, moderate right at C3-4 and C4-5, moderate bilateral at C5-6 secondary to facet and uncinate process hypertrophy. Decreased intervertebral space at C5-6. IMPRESSION: 1. No acute cervical spine abnormalities. 2. Cannot exclude ligament, spinal cord and or vascular abnormalities on the basis of this examination. Signed by: DR Adryan Russo M.D. on 11/10/2018 7:45 AM
[2018-11-10] MEDS ORDERED: KETOROLAC TROMETHAMINE 60 MG/2 ML VIAL ONE (08:14)
== END 2018-11-10 08:17 | disposition home or self-care (01) ==
LOC: ER 06:38
DX: S00.83XA Contusion of other part of head, initial encounter (principal); S16.1XXA Strain of muscle, fascia and tendon at neck level, initial encounter; K04.7 Periapical abscess without sinus; W01.0XXA Fall on same level from slipping, tripping and stumbling without subsequent striking against object, initial encounter; Y93.01 Activity, walking, marching and hiking; Y92.008 Other place in unspecified non-institutional (private) residence as the place of occurrence of the external cause; I10 Essential (primary) hypertension; G62.9 Polyneuropathy, unspecified; F41.9 Anxiety disorder, unspecified
CPT/HCPCS: 70450; 72125; 99284; J1885

== ENCOUNTER 2019-02-15 17:17 | Observation (INO) | payer MEDICARE ==
[~2019-02-15] VITALS: Ht 180.3 cm; Wt 77.1 kg
--- OUTSIDE RECORDS SUMMARY | 2019-02-15 17:21 | XMS REPORT | Continuity of Care Document ---
Author Author [employer] Organization [employer] Address Unknown Phone Unavailable Care Team Providers Care Admission Nurse Coordinator Name Role Phone [employer] Unavailable Unavailable Problems Problem Status Onset Date Classification Date Reported Comments Source RT KNEE/HIP Active 01/04/2019 [facility] [place] Accidental fall 09/06/2018 09/09/2018 [facility] Acute back pain 09/06/2018 09/09/2018 [facility] WEAKNESS Active 09/05/2018 [facility] Pain in right arm 05/21/2018 12/02/2018 [facility] LBP Active 05/16/2018 [facility] [place] PAIN ON RIGHT UPPER ESTREMITY HIP PAIN H Active 05/15/2018 [facility] Spinal stenosis, lumbar region without neurogenic claudication 04/23/2018 11/02/2018 [facility] Pain in right knee 04/11/2018 10/21/2018 [facility] DX: M54.=LOW BACK PAIN Active 04/03/2018 [facility] Anesthesia of skin 02/28/2018 09/06/2018 [facility] Concussion without loss of consciousness, initial encounter 02/23/2018 09/06/2018 [facility] Concussion 02/17/2018 09/06/2018 [facility] FALL Active 02/17/2018 [facility] NAUSEA Active 02/17/2018 [facility] Discharge Diagnosis: Fall 07/26/2017 07/29/2017 [facility] Discharge Diagnosis: Head injury 07/26/2017 07/29/2017 [facility] STICHES REMOVAL Active 05/19/2016 [facility] HEAD PAIN Active 05/16/2016 [facility] Discharge Diagnosis: Laceration of occipital region of scalp 05/09/2016 05/12/2016 [facility] Discharge Diagnosis: Closed head injury 05/09/2016 05/12/2016 [facility] FALL/ LACERATION TO THE HEAD Active 05/09/2016 [facility] Pain in right hip 12/02/2018 [facility] Unspecified injury of head, initial encounter 12/02/2018 [facility] Presence of right artificial hip joint 12/02/2018 [facility] Osteophyte, vertebrae 11/02/2018 [facility] Muscle weakness 01/09/2019 [facility] [place] Low back pain 01/09/2019 [facility] [place] Repeated falls 01/09/2019 [facility] [place] Ataxia, unspecified 01/09/2019 [facility] [place] Fall Resolved Problem 01/09/2019 [facility], [facility] [place], [facility] [place] Sciatic pain Active Problem 01/09/2019 [facility], [facility] [place], [facility] [place] Unilateral primary osteoarthritis, right knee 10/21/2018 [facility] [place] Sciatica, left side 09/06/2018 [facility] Essential hypertension 09/06/2018 [facility] Fall on same level from slipping, tripping and stumbling without subsequent striking against object, initial encounter 09/06/2018 [facility] Alcohol dependence, uncomplicated 09/06/2018 [facility] PAIN IN RIGHT ARM Active [facility] PAIN IN RIGHT HIP Active [facility] UNSPECIFIED INJURY OF HEAD, INITIAL ENCO Active [facility] LOW BACK PAIN Active [facility] [place] REPEATED FALLS Active [facility] [place] ATAXIA, UNSPECIFIED Active [facility] [place] MUSCLE WEAKNESS (GENERALIZED) Active [facility] [place] Medications Medication Details Route Status Patient Instructions Ordering Provider Order Date Source Ativan 1 mg, 1 tab, Route: PO, Drug form: TAB, ONCE, Dosing Weight 70.455, kg, Priority: STAT, Start date: 09/05/18 23:39:00 [facility], Stop date: 09/05/18 23:39:00 CSTNotes: (Same as: Ativan) No Longer Active 09/06/2018 [facility] Omnipaque 180 1,800 mg, 10 mL, Route: INTRATHECAL, Drug form: SOLN, ONCE, Dosing Weight 76.364, kg, Start date: 04/15/18 9:09:00 CDT, Stop date: 04/15/18 9:09:00 CDTNotes: (Same as:Omnipaque 180). WASTE: F/P - Bl ack; E - [facility] Inactive 04/15/2018 [facility] Omnipaque 180 10 mg/mL, Route: INTRATHECAL, ONCE, Dosing Weight 76.364, kg, Start date: 04/11/18 7:51:00 CDT, Stop date: 04/11/18 7:51:00 CDT No Longer Active 04/11/2018 [facility] tramadol hydrochloride 50 MG Oral Tablet [Ultram] 50 mg, Route: PO, Drug form: TAB, ONCE, Dosing Weight 90.909, kg, Priority: STAT, Start date: 07/26/17 20:23:00 TAPEMAN, Stop date: 07/26/17 20:23:00 [facility] Inactive 07/27/2017 [facility] tramadol hydrochloride 50 MG Oral Tablet [Ultram] 50 mg=1 tab, PO, Q6H, X 3 day, # 11 tab, 0 Refill(s) Active 07/27/2017 [facility] Cephalexin 500 MG Oral Capsule [Keflex] 500 mg=1 cap, PO, QID, X 7 day, # 28 cap, 0 Refill(s) Active 05/19/2016 [facility] Acetaminophen 325 MG / Hydrocodone Bitartrate 5 MG Oral Tablet 1 tab, Route: PO, Drug Form: TAB, Dosing Weight 79.545, kg, ONCE, STAT, Start date: 05/09/16 22:23:00 CDT, Stop date: 05/09/16 22:23:00 CDT Inactive 05/10/2016 [facility] Allergies, Adverse Reactions, Alerts Substance Category Reaction Severity Reaction type Status Date Reported Comments Source penicillins Assertion Drug allergy Active [facility] Immunizations Immunization Date Given Site Status Last Updated Comments Source diphtheria/pertussis, acel/tetanus adult 05/10/2016 Right deltoid completed [facility] Results Order Name Results Value Reference Range Date Interpretation Comments Source CHEM PANEL Globulin 4.0 2.7 - 4.2 09/06/2018 [facility] CHEM PANEL B/C Ratio 10 6 - 25 09/06/2018 [facility] CHEM PANEL AGAP 8.8 10.0 - 20.0 09/06/2018 [facility] CHEM PANEL A/G Ratio 1.0 0.7 - 1.6 09/06/2018 [facility] CHEM PANEL eGFR 58 09/06/2018 Result Comment: The eGFR is calculated using the CKD-EPI formula. In most young, healthy individuals the eGFR will be >90 mL/min/1.73m2. The eGFR declines with age. An eGFR of 60-89 may be normal in some populations, particularly the elderly, for whom the CKD-EPI formula has not been extensively validated. Use of the eGFR is not recommended in the following populations:

Individuals with unstable creatinine concentrations, including patients and those with serious co-morbid conditions.

Patients with extremes in muscle mass or diet.

The data above are obtained from the National Kidney Disease Education Program (NKDEP) which additionally recommends that when the eGFR is used in patients with extremes of body mass index for purposes of drug dosing, the eGFR should be multiplied by the estimated BMI. [facility] CHEM PANEL Chloride Lvl 108 95 - 109 09/06/2018 [facility] CHEM PANEL Total Protein 7.8 6.4 - 8.4 09/06/2018 [facility] CHEM PANEL Calcium Lvl 9.3 8.5 - 10.5 09/06/2018 [facility] CHEM PANEL CO2 28 24 - 32 09/06/2018 [facility] CHEM PANEL Albumin Lvl 3.8 3.5 - 5.0 09/06/2018 [facility] CHEM PANEL AST 37 0 - 37 09/06/2018 [facility] CHEM PANEL ALT 26 0 - 65 09/06/2018 [facility] CHEM PANEL Alk Phos 60 39 - 136 09/06/2018 [facility] CHEM PANEL Bili Total 0.5 0.2 - 1.3 09/06/2018 [facility] CHEM PANEL Glucose Lvl 95 70 - 99 09/06/2018 [facility] CHEM PANEL Potassium Lvl 3.8 3.5 - 5.1 09/06/2018 [facility] CHEM PANEL Sodium Lvl 141 135 - 145 09/06/2018 [facility] CHEM PANEL Creatinine Lvl 0.98 0.50 - 1.40 09/06/2018 [facility] CHEM PANEL BUN 10 7 - 22 09/06/2018 [facility] HEMATOLOGY Eosinophils # 0.2 0.0 - 0.5 09/06/2018 [facility] HEMATOLOGY Basophils # 0.1 0.0 - 0.2 09/06/2018 [facility] HEMATOLOGY Neutrophils # 3.9 1.5 - 8.1 09/06/2018 [facility] HEMATOLOGY Monocytes # 0.6 0.0 - 0.8 09/06/2018 [facility] HEMATOLOGY Lymphocytes # 2.1 1.0 - 5.5 09/06/2018 [facility] HEMATOLOGY Monocytes 8.9 2.0 - 12.0 09/06/2018 [facility] HEMATOLOGY Basophils 0.8 0.0 - 1.0 09/06/2018 [facility] HEMATOLOGY Eosinophils 2.6 0.0 - 4.0 09/06/2018 [facility] Lymphocytes 31.0 20.0 - 40.0 09/06/2018 [facility] HEMATOLOGY Segs 56.7 45.0 - 75.0 09/06/2018 [facility] HEMATOLOGY MCV 89.4 80.0 - 98.0 09/06/2018 [facility] HEMATOLOGY Hct 39.3 36.0 - 48.0 09/06/2018 [facility] Hgb 13.2 12.0 - 16.0 09/06/2018 [facility] RBC 4.40 4.20 - 5.40 09/06/2018 [facility] WBC 6.9 3.7 - 10.4 09/06/2018 [facility] RDW 13.8 11.5 - 14.5 09/06/2018 [facility] Platelet 265 133 - 450 09/06/2018 [facility] MPV 9.0 7.4 - 10.4 09/06/2018 [facility] MCH 30.0 27.0 - 31.0 09/06/2018 [facility] MCHC 33.6 32.0 - 36.0 09/06/2018 [facility] URINE AND STOOL UA WBC 1 0 - 5 02/17/2018 [facility] URINE AND STOOL UA RBC 3 0 - 2 02/17/2018 [facility] URINE AND STOOL UA Leuk Est Negative (02/17/18 10:23 AM) Negative 02/17/2018 [facility] URINE AND STOOL UA Sq Epi Occasional /LPF Few /LPF 02/17/2018 [facility] URINE AND STOOL UA Urobilinogen <=1.0 mg/dL 0.1 - 1.0 02/17/2018 [facility] URINE AND STOOL UA Color Ltyellow 02/17/2018 [facility] URINE AND STOOL UA Glucose Negative mg/dL Negative mg/dL 02/17/2018 [facility] URINE AND STOOL UA Spec Grav 1.008 <=1.030 02/17/2018 [facility] URINE AND STOOL UA Protein Negative mg/dL Negative mg/dL 02/17/2018 [facility] URINE AND STOOL UA pH 6.0 5.0 - 8.0 02/17/2018 [facility] URINE AND STOOL UA Turbidity Clear (02/17/18 10:23 AM) Clear 02/17/2018 [facility] URINE AND STOOL UA Nitrite Negative (02/17/18 10:23 AM) Negative 02/17/2018 [facility] URINE AND STOOL UA Bili Negative *NA* (02/17/18 10:23 AM) Negative 02/17/2018 [facility] URINE AND STOOL UA Ketones Negative mg/dL Negative mg/dL 02/17/2018 [facility] URINE AND STOOL UA Blood Small *ABN* (02/17/18 10:23 AM) Negative 02/17/2018 [facility] TOXICOLOGY Etoh (%) <0.003 02/17/2018 [facility] TOXICOLOGY Ethanol Lvl <3 02/17/2018 [facility] CARDIAC ENZYMES CK MB Index 1.7 0.0 - 2.5 02/17/2018 [facility] CARDIAC ENZYMES Troponin-I <0.02 0.00 - 0.40 02/17/2018 [facility] CARDIAC ENZYMES Total CK 277 12 - 191 02/17/2018 [facility] CARDIAC ENZYMES CK MB 4.7 0.5 - 3.6 02/17/2018 [facility] CHEM PANEL Magnesium Lvl 2.0 1.8 - 2.4 02/17/2018 [facility] CHEM PANEL Lipase Lvl 119 73 - 393 02/17/2018 [facility] CHEM PANEL eGFR 59 02/17/2018 Result Comment: The eGFR is calculated using the CKD-EPI formula. In most young, healthy individuals the eGFR will be >90 mL/min/1.73m2. The eGFR declines with age. An eGFR of 60-89 may be normal in some populations, particularly the elderly, for whom the CKD-EPI formula has not been extensively validated. Use of the eGFR is not recommended in the following populations:

Individuals with unstable creatinine concentrations, including patients and those with serious co-morbid conditions.

Patients with extremes in muscle mass or diet.

The data above are obtained from the National Kidney Disease Education Program (NKDEP) which additionally recommends that when the eGFR is used in patients with extremes of body mass index for purposes of drug dosing, the eGFR should be multiplied by the estimated BMI. [facility] CHEM PANEL BUN 14 7 - 22 02/17/2018 [facility] CHEM PANEL Glucose Lvl 107 70 - 99 02/17/2018 [facility] CHEM PANEL Albumin Lvl 3.5 3.5 - 5.0 02/17/2018 [facility] CHEM PANEL ALT 25 0 - 65 02/17/2018 [facility] CHEM PANEL AST 25 0 - 37 02/17/2018 [facility] CHEM PANEL Calcium Lvl 8.7 8.5 - 10.5 02/17/2018 [facility] CHEM PANEL Total Protein 6.9 6.4 - 8.4 02/17/2018 [facility] CHEM PANEL Alk Phos 51 39 - 136 02/17/2018 [facility] CHEM PANEL CO2 29 24 - 32 02/17/2018 [facility] CHEM PANEL Sodium Lvl 143 135 - 145 02/17/2018 [facility] CHEM PANEL Chloride Lvl 106 95 - 109 02/17/2018 [facility] CHEM PANEL Creatinine Lvl 0.98 0.50 - 1.40 02/17/2018 [facility] CHEM PANEL Potassium Lvl 4.0 3.5 - 5.1 02/17/2018 [facility] CHEM PANEL Globulin 3.4 2.7 - 4.2 02/17/2018 [facility] CHEM PANEL Bili Total 0.3 0.2 - 1.3 02/17/2018 [facility] CHEM PANEL B/C Ratio 14 6 - 25 02/17/2018 [facility] CHEM PANEL A/G Ratio 1.0 0.7 - 1.6 02/17/2018 [facility] CHEM PANEL AGAP 12.0 10.0 - 20.0 02/17/2018 [facility] HEMATOLOGY Neutrophils # 2.8 1.5 - 8.1 02/17/2018 [facility] HEMATOLOGY Basophils 0.8 0.0 - 1.0 02/17/2018 [facility] HEMATOLOGY Monocytes # 0.5 0.0 - 0.8 02/17/2018 [facility] HEMATOLOGY Lymphocytes # 1.4 1.0 - 5.5 02/17/2018 [facility] HEMATOLOGY Eosinophils 3.5 0.0 - 4.0 02/17/2018 [facility] HEMATOLOGY Lymphocytes 28.7 20.0 - 40.0 02/17/2018 [facility] HEMATOLOGY Segs 57.5 45.0 - 75.0 02/17/2018 [facility] HEMATOLOGY Monocytes 9.5 2.0 - 12.0 02/17/2018 [facility] HEMATOLOGY Eosinophils # 0.2 0.0 - 0.5 02/17/2018 [facility] HEMATOLOGY INR 0.91 0.85 - 1.17 02/17/2018 [facility] PTT 28.6 22.9 - 35.8 02/17/2018 [facility] PT 12.3 12.0 - 14.7 02/17/2018 [facility] RDW 14.1 11.5 - 14.5 02/17/2018 [facility] WBC 4.9 3.7 - 10.4 02/17/2018 [facility] MCHC 34.2 32.0 - 36.0 02/17/2018 [facility] MCV 90.0 80.0 - 98.0 02/17/2018 [facility] MCH 30.7 27.0 - 31.0 02/17/2018 [facility] Hgb 13.4 12.0 - 16.0 02/17/2018 [facility] Hct 39.1 36.0 - 48.0 02/17/2018 [facility] Platelet 201 133 - 450 02/17/2018 [facility] MPV 9.4 7.4 - 10.4 02/17/2018 [facility] RBC 4.35 4.20 - 5.40 02/17/2018 [facility] Pathology Reports No Data Provided for This Section Diagnostic Reports Report Value Date Source Knee wo contrast MRI EXAM: Knee wo contrast MRI DATE: 01/03/2019 7:11 CDT. INDICATION: M25.561 Pain in right knee. COMPARISON: Remote right knee radiograph on 04/03/2018. TECHNIQUE: Multiplanar, multisequence noncontrast MRI of the right knee. FINDINGS: MENISCI * Medial meniscus: No acute tear is identified. Heterogeneous signal and free edge irregularity is seen about the medial meniscal body (coronal image 12). Capsular ligaments intact. * Lateral meniscus: Chronic-appearing, horizontal oblique tear at the lateral meniscal body with abnormal intermediate signal extending to the tibial articular surface (coronal image 13). Mild free edge irregularity is noted at this level. Capsular ligaments intact. LIGAMENTS * ACL: No acute tear is identified. However, heterogeneous signal and mild thickening about the proximal half could represent a chronic sprain or developing mucoid degeneration (sagittal image 14). * PCL: The posterior cruciate ligament is intact. * MCL: The medial collateral ligament is intact. * LCL: The lateral collateral ligament complex is intact. EXTENSOR MECHANISM * The quadriceps tendon, patella and the patellar tendon are intact. MUSCLES * No worrisome signal abnormality in the muscles. CARTILAGE * Patellofemoral compartment: No chondral defects. * Medial compartment: No chondral defects. * Lateral compartment: No chondral defects. BONES * There is a moderate amount of bone marrow edema about the posterior aspect of the lateral tibial plateau (sagittal image 18). * No discrete fracture line or articular surface depression is identified. * Small tricompartmental marginal osteophytes are present. SOFT TISSUES * No significant knee joint fluid is seen. * No García's cyst is detected. * There is no abnormality of the neurovascular structures. IMPRESSION: 1. No acute meniscal or ligamentous injury is identified within the RIGHT knee. 2. Small, chronic/degenerative type tears at the medial and lateral meniscal bodies. 3. Chronic sprain versus developing mucoid degeneration about the proximal half of the ACL. 4. Bone marrow edema about the posterior aspect of the lateral tibial plateau is nonspecific. Depending on the clinical setting, this could represent a bone contusion or subchondral insufficiency fracture. 5. Tiny tricompartmental osteophytes. No worrisome chondral defects are detected. 01/03/2019 [facility] Spine cervical wo contrast MRI EXAM: Spine cervical wo contrast MRI DATE: 01/03/2019 7:10 CDT . ORDERING PHYSICIAN: Shay Garzon MD CLINICAL INDICATION: M54.2 Cervicalgia - M54.2 Cervicalgia; TECHNIQUE: Multiplanar, multisequence MRI cervical spine without IV contrast COMPARISON: Unavailable FINDINGS: VISUALIZED INTRACRANIAL CONTENTS: Unremarkable. CRANIOCERVICAL JUNCTION: The cerebellar tonsils are in normal position. SPINAL CORD: No definite cord signal abnormality. No definite dural based lesion. VERTEBRAE: The vertebrae are normal in height and alignment. No focal suspicious bone marrow signal abnormality. PARASPINAL SOFT TISSUES: No edema or masses DISC LEVELS, SPINAL CANAL, NEURAL FORAMINA: Craniocervical junction: No stenosis C1-C2: No subluxation, ligamentous pannus formation, or stenosis C2-C3: Intervertebral disc height and signal are maintained. Posterior elements are normal.There is no stenosis. C3-C4: Dehydrated disc with shallow diffuse bulge. There is mild facet hypertrophy. Central canal measures 8 mm with partially effaced ventral CSF space but no spinal cord mass effect. There is moderate narrowing of the right neural foramen. C4-C5: There is bilateral facet hypertrophy. There is subtle grade 1 anterolisthesis of C4 relative to C5. The disc is dehydrated with diffuse bulge/pseudobulge. Central canal measures 7 mm with right ventral spinal cord contour deformity. There is mild narrowing of the neural foramina bilaterally. C5-C6: Desiccated disc with circumferential disc osteophyte complex. There is bilateral facet and uncinate hypertrophy. Central canal measures 8 mm. There is moderate to severe narrowing of left neural foramen and mild narrowing of the right. C6-C7: Dehydrated disc with diffuse bulge. There is right facet hypertrophy. Central canal measures 11 mm. The neural foramina are patent. C7-T1: Intervertebral disc height and signal are maintained. Posterior elements are normal. There is no stenosis. IMPRESSION: 1. Spinal stenosis with ventral spinal cord contour deformity at C4-C5. There is no evidence of spinal cord edema or myelopathy. 2. Potential exiting nerve root impingement on the right at C3-C4 and on the left at C6-C7. 01/03/2019 [facility] [place] Pelvis wo IV contrast CT CT PELVIS WITHOUT CONTRAST INDICATION:Evaluate for sacral fracture, - eval for inferior sacrum fracture per lumbar X ray, CT dose DLP 1088.23 COMPARISON: Lumbar spine radiograph 09/05/2018 IMPRESSION: 1. No acute bony abnormalities are visualized. Specifically, no sacral fractures are identified. 2. Total bilateral hip prostheses are in place, grossly in satisfactory position and alignment, without evidence of hardware loosening or failure. The distal femoral stems are not included in the scan. No periprosthetic fractures are identified. 3. Spondylosis of the lower lumbar spine and spondyloarthropathy of the sacroiliac joints are noted. 4. Limited evaluation of the intrapelvic soft tissues is grossly unremarkable. SL:16 09/05/2018 [facility] Femur 2 views bilateral DX 2 RADIOGRAPHIC VIEWS BILATERAL FEMURS CLINICAL INDICATION: Bilateral leg pain after a fall. TECHNIQUE: 2 radiographic views bilateral femurs COMPARISON: Right hip radiographs 05/15/2018 FINDINGS: Right femur: There is an intact total right hip arthroplasty. There is no acute osseous fracture or dislocation. There is moderate narrowing of the tibiofemoral joints of the knee due to primary osteoarthritic degenerative change. The soft tissues reveal no unintentional retained radiodense foreign body or subcutaneous emphysema. Left femur: There is a intact total left hip arthroplasty. There is no acute osseous fracture or dislocation. There is moderate primary osteoarthritic narrowing of the tibiofemoral joints of the knee. The soft tissues reveal no unintentional retained radiodense foreign body or subcutaneous emphysema. IMPRESSION: 1. There is no acute osseous fracture or dislocation of either femur. 2. There are intact bilateral hip arthroplasty devices. 3. There is moderate primary osteoarthritic narrowing of both knees. SL: JBBRENDEN 09/05/2018 [facility] Pelvis AP DX Study: Pelvis AP DX 09/05/2018 5:30 PM [facility] Patient Name: JOSE MIGUEL BLAS MR: [id number] : 1950; Age: 68 years y/o Female Ordering Physician: Julián Bowman Clinical Indication: Pelvic and hip pain after a fall. Comparison: 05/15/2018 PELVIS, 1 views: 1. No acute fracture, dislocation, or suspicious focal osseous lesion. 2. Fairly stable bilateral hip replacements without hardware complication or osseous lucency about the hardware. 3. Mild to moderate lumbosacral spondylosis and facet arthrosis. 4. Mild osteoarthritis in both SI joints. 5. The soft tissues are normal. SL: MALCOLM 09/05/2018 [facility] Spine lumbar 2 or 3 views DX Study: Spine lumbar 2 or 3 views DX 09/05/2018 5:29 PM [facility] Patient Name: JOSE MIGUEL BLAS MR: [id number] : 1950; Age: 68 years y/o Female Ordering Physician: Julián Bowman Clinical Indication: Lumbar pain related to a fall. Comparison: None LUMBAR SPINE, 3 views: ALIGNMENT: Mild rotoscoliosis convexity toward the left. DEGENERATIVE CHANGES: Mild to moderate lumbar spondylosis and facet arthrosis is seen throughout the majority of the lumbar spine with moderate to severe change at L4-L5. Multilevel intervertebral disc space narrowing, endplate sclerosis, marginal osteophyte formation are present. ACUTE CHANGES: No definite acute fracture or dislocation is appreciated in the lumbar spine. Angulation of the lower sacrum on the lateral image may represent artifact or indeterminate age fracture. SOFT TISSUES: The paraspinal soft tissues are normal. IMPRESSION: 1. Mild to moderate lumbar spondylosis and facet arthrosis without acute fracture or dislocation in the lumbar spine. 2. Mild lobulation of the inferior sacrum on the lateral image may be related to artifact or indeterminate age fracture. Additional views or CT may be indicated. SL: MALCOLM 09/05/2018 [facility] Brain wo contrast MRI EXAM: Brain wo contrast MRI DATE: 05/15/2018 16:05 INDICATION: ataxia, unspecified. unspecified fall, initial encounter. unspecified injury of head, initial encounter. . COMPARISON: CT brain 02/17/2018 TECHNIQUE: Multiplanar multisequence images of the brain were obtained without contrast administration. DISCUSSION: Few hyperintense T2 lesions in the supratentorial white matter consistent with small vessel disease. No acute hemorrhage, hydrocephalus or midline shift. No restricted diffusion. Partial empty sella. The pineal region, craniocervical junction, orbits and internal auditory canals are unremarkable. Major intracranial flow voids are well-maintained. Opacification of some paranasal sinuses. IMPRESSION: No acute intracranial abnormality. Partial empty sella. 05/15/2018 [facility] [facility] H[facility] 2 views DX EXAM: XR HUMERUS 2 VIEWS DATE: 05/15/2018 3:23 PM CDT INDICATION: pain in right arm. - humerus xr COMPARISON: None TECHNIQUE: AP and lateral radiographs of the humerus Laterality: Right FINDINGS: No acute fracture or malalignment is identified. No narrowing of subacromial space. Small osteophytes of the shoulder. No soft tissue abnormality is identified. IMPRESSION: Normal exam of the right humerus. 05/15/2018 [facility] Hip 2/3 views uni w pelvis DX EXAM: XR HIP 2 VIEW AND AP PELVIS DATE: 05/15/2018 3:23 PM CDT INDICATION: pain in right hip - hip xr COMPARISON: Right hip series 07/26/2017 TECHNIQUE: 2 views of the hip and a single AP radiograph of the pelvis Laterality: Right FINDINGS: No acute bone abnormality identified. Unchanged, satisfactory appearance of right total hip arthroplasty. No hardware complication identified. Visualized portions of left total hip arthroplasty is satisfactory in appearance. Severe spondylosis of lower lumbar spine. IMPRESSION: Unchanged, satisfactory appearance of right total hip arthroplasty. 05/15/2018 [facility] Spine lumbar myelogram CT UNENHANCED CT LUMBAR SPINE CLINICAL INDICATION: - M54.5 Low back pain TECHNIQUE: Intrathecal contrast was administered prior to CT imaging and the procedure is documented on a separate report. Unenhanced CT lumbar spine was performed with multiplanar reconstructions. The dose length product is 409 mGy-cm. 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 There is no acute osseous fracture or dislocation. There is a 2 mm degenerative retrolisthesis of L1 on L2. There is no pars defect. T12-L1: There is a circumferential disc bulge with preserved disc height. There is minimal impression on the ventral thecal sac but no spinal canal or neural foraminal stenosis. L1-L2: There is a circumferential disc bulge with mild disc height loss. There is a 2 mm degenerative retrolisthesis of L1 on L2. There is mild primary osteoarthritic facet hypertrophy. There is mild impression upon the ventral thecal sac but no spinal canal stenosis. There is mild left lateral recess stenosis. There is mild left neural foraminal stenosis. The right neural foramen is patent. L2-L3: There is a circumferential disc bulge preserved disc height. There is mild impression upon the ventral thecal sac but no spinal canal stenosis. There is mild bilateral lateral recess stenosis. There is mild primary osteoarthritic facet hypertrophy. There is mild left neural foraminal stenosis. The right neural foramen is patent L3-L4: There is a circumferential disc osteophyte bulge complex with mild disc height loss. There is mild primary osteoarthritic facet hypertrophy. There is impression upon the ventral thecal sac but no spinal canal stenosis. There is mild right and moderate left lateral recess stenosis. There is moderate left neural foraminal stenosis. The right neural foramen is patent. L4-L5: There is a circumferential disc osteophyte bulge complex with moderately severe loss of disc height. There is impression upon the ventral thecal sac but no spinal canal stenosis. There is mild bilateral lateral recess stenosis. There is moderate right and mild left neural foraminal stenosis. L5-S1: There is a circumferential disc bulge with preserved disc height. There is no spinal canal stenosis. There is moderate primary osteoarthritic facet hypertrophy. There is moderate left neural foraminal stenosis. The right neural foramen is patent. There is mild left lateral recess stenosis. There is a mild burden of atherosclerotic calcification of the aorta. IMPRESSION: 1. There are multilevel [id number] lateral recess and neural foraminal stenoses discussed on a level by level basis in the findings. There is no significant spinal canal stenosis at any lumbar level. SL: [email or web address] 04/15/2018 [facility] Spine lumbar myelogram DX Patient Name: JOSE MIGUEL BLAS : 1950; Age: 67 years y/o Female MR: [id number] Study: Spine lumbar myelogram DX 04/15/2018 9:08 AM CDT PROCEDURE: Fluoroscopic-guided lumbar myelogram CLINICAL INFORMATION: - M54.5 Low back pain COMPARISON: None. CONSENT: The procedure, risks, benefits and alternatives were discussed and written informed consent was obtained. A 'time out' was performed per protocol prior to the procedure. 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 Cardenas Fluoroscopy time: 26 seconds Estimated blood loss: Minimal Pain control: 1% lidocaine was administered for local anesthesia. The patient was placed in a prone position on the fluoroscopy table. The patient's back was prepped and draped with sterile technique. The overlying skin was anesthetized with 1% lidocaine. Under fluoroscopic guidance, a 20-gauge needle was advanced into the thecal sac at the L5-S1 disc space. Intrathecal confirmation was obtained with CSF return. Approximately 10 cc of Omnipaque 180 was administered intrathecally under fluoroscopic visualization. The patient tolerated the procedure without immediate complication and transferred to the CT scanner for further imaging. IMPRESSION: Successful fluoroscopic-guided lumbar myelogram. SL: [id number] 04/15/2018 [facility] Knee 3 views DX EXAM: Knee 3 views DX DATE: 04/03/2018 at 1405 hours. INDICATION: - M25.561 Pain in right knee COMPARISON: None available. TECHNIQUE: 3 views of the right knee. FINDINGS: No acute fracture or malalignment is identified. Definite marginal osteophytes are present within the medial lateral compartments. There is mild joint space narrowing at the medial compartment. No subchondral sclerosis or cystic change is evident. No knee joint effusion is detected. No acute soft tissue abnormality is identified. IMPRESSION: No acute abnormality. Bicompartmental RIGHT knee osteoarthrosis is mild within the medial compartment. 04/03/2018 [facility] Chest 1view DX Clinical Indication: Chest pain - fall. Comparison: None. FINDINGS: AP chest radiograph was obtained. MEDIASTINUM: The cardiac silhouette is normal in size. The aorta is unremarkable. LUNGS: The lungs are clear. No pleural effusion. No pneumothorax. OTHER: No acute osseous abnormalities. Chronic resorption of the distal left clavicle. IMPRESSION: No acute cardiopulmonary abnormality identified. SL: MRICHTKATHERINE 02/17/2018 [facility] Brain wo contrast CT I have reviewed this examination and concur with the interpretation. Exam was compared to the 07/26/2017 study Clinical Indication: - L sided facial droop; EMS reports pt w fall on Sunday, after EToH use. Reports hitting rt side head, but denies LOC. Reports 'ringing in my ears.' Pt w obvious L sided facial droop. Comparison: None TECHNIQUE: CT images were obtained from the foramen magnum to the vertex without the use of intravenous contrast on a multidetector CT. Coronal and sagittal reconstructions were obtained. CT radiation dose DLP: 1024 mGy-cm FINDINGS: BRAIN PARENCHYMA: Mild generalized atrophy noted. Mild periventricular white matter low densities without mass effect are present. There is no mass effect, midline shift or edema. There is no intracranial hyperdense hemorrhage. VENTRICLES: The lateral ventricles, third and fourth ventricles appear unremarkable. The basilar cisterns are normal. ORBITS, MASTOIDS AND PARANASAL SINUSES: The limited visualized orbits are unremarkable. The limited visualized paranasal sinuses are unremarkable. The mastoid air cells are clear. SKULL: There are no osseous abnormalities. If there is further concern for intracranial pathology or acute stroke, MRI of the brain may be performed for complete assessment. ---- IMPRESSION: 1. No acute CT abnormality -- no mass effect, hemorrhage or subacute stroke. 2. Chronic changes of atrophy and chronic microvascular sequela. ----- : [id number] 02/17/2018 [facility] Hip 2/3 views uni w pelvis DX Right hip 2views: Right total hip arthroplasty is seen in satisfactory position. There is no fracture or dislocation or evidence of loosening. There are no other significant osseous or soft tissue abnormalities. IMPRESSION: No acute radiographic abnormality of the right hip. [id number] 07/26/2017 [facility] Brain wo contrast CT Clinical Indication: Fall with trauma to the back of the head Comparison: 05/09/2016 TECHNIQUE: CT images were obtained from the foramen magnum to the vertex without the use of intravenous contrast on a multidetector CT. Coronal and sagittal reconstructions were obtained. CT radiation dose DLP: 281.54 mGy-cm FINDINGS: BRAIN PARENCHYMA: There are normal cali-white interfaces, sulci and gyri. There are no focal mass lesions on this noncontrast head CT. There is no mass effect, midline shift or edema. There are no intra-axial or extra-axial fluid collections, intraventricular or intraparenchymal hemorrhage. The pineal, sellar, brainstem, cerebellum and skull base regions appear unremarkable. VENTRICLES: The lateral ventricles, third and fourth ventricles appear unremarkable. The basilar cisterns are normal. ORBITS, MASTOIDS AND PARANASAL SINUSES: The visualized orbits and paranasal sinuses are unremarkable. The mastoid air cells are clear. SKULL: There are no osseous abnormalities. There is soft tissue swelling overlying the posterior right frontoparietal calvarium near the vertex. If there is further concern for intracranial pathology or acute stroke, MRI of the brain may be performed for complete assessment. IMPRESSION: Unremarkable noncontrast head CT with no mass, hemorrhage or subacute stroke. Soft tissue swelling overlying the posterior right frontoparietal calvarium near the vertex. SL: [id number] 07/26/2017 [facility] Spine cervical wo contrast CT (ER) Clinical Indication: midline cervical neck pain s/p fall; Pt fall at approx 1300 today pt then got home and got a headache and swelling to back of head and called 911 again. Pt not on blood thinners. Pt went to sit on bench and missed it falling backwards hitting head; Comparison: Cervical spine CT 05/09/2016 Technique: Multi-detector CT imaging of the cervical spine is performed. Coronal and sagittal reconstructions were obtained. CT Radiation Dose DLP 791 mGy-cm FINDINGS: ALIGNMENT AND GENERAL ASSESSMENT: There is normal alignment of the cervical spine. There are no fractures or subluxations. The craniocervical junction is normal. The atlanto-dental alignment appears unremarkable. The posterior elements and spinous processes are unremarkable. The facet joint, spinolaminar and spinous process alignment are normal. DISK SPACES AND SOFT TISSUES: The prevertebral soft tissues are normal. Facet arthropathy multiple levels. No significant central canal stenosis. MRI is the gold standard to assess for disk disease. VISUALIZED LUNG APICES: Mild biapical scarring.. CT myelogram or MRI of the cervical spine may be performed, if there is further concern. IMPRESSION: No fractures or subluxations of the cervical spine. SL: OLIVA 07/26/2017 [facility] Brain wo contrast CT Patient Name: JOSE MIGUEL BLAS : 1950; Age: 65 years y/o Female MR: [id number] Study: Brain wo contrast CT 05/09/2016 7:28 PM CDT Clinical Indication: Headache with Trauma; Comparison: None TECHNIQUE: CT images were obtained from the foramen magnum to the vertex without the use of intravenous contrast on a multidetector CT. Coronal and sagittal reconstructions were obtained. FINDINGS: BRAIN PARENCHYMA: Small hematoma noted in the right posterior parietal occipital scalp. No evidence for subarachnoid, intraparenchymal or intraventricular hemorrhage. No significant extra-axial fluid collection, mass effect or shift. No evidence for an acute infarction. No mass lesions identified about the brain. VENTRICLES: The ventricles and sulci are enlarged for the patient's age but not out of proportion to each other. Findings are consistent with changes of cerebral atrophy. ORBITS, MASTOIDS AND PARANASAL SINUSES: Small amount of right ethmoid and minimal posterior right maxillary sinus disease. SKULL: There are no osseous abnormalities. If there is further concern for intracranial pathology or acute stroke, MRI of the brain may be performed for complete assessment. IMPRESSION: 1. Small hematoma in the right posterior parietal occipital scalp. 2. Small amount of right ethmoid and minimal posterior right maxillary sinus disease. 3. Cerebral atrophy. 4. Otherwise unremarkable head CT without contrast. SL: [id number] 05/09/2016 [facility] Spine cervical wo contrast CT CT CERVICAL SPINE History: Fall Comments: CT of the cervical spine was obtained utilizing multiple axial images. Sagittal and coronal reconstructions were reviewed. Decreased bone mineralization. Normal curvature of the cervical spine. Vertebral body heights are maintained. No acute fractures or subluxations. C1-C2 relationship is normal. Small anterior and posterior disc osteophytes at C5 C6 C7 Visualized lung apices are clear of pneumothorax. Impression: No acute findings in the cervical spine. 05/09/2016 [facility] Consultation Notes No Data Provided for This Section Discharge Summaries No Data Provided for This Section History and Physicals No Data Provided for This Section Vital Signs Vital Sign Value Date Comments Source Temperature Oral (F) 98.2 F 09/06/2018 [facility] Systolic (mm Hg) 148 09/06/2018 [facility] Diastolic (mm Hg) 68 09/06/2018 [facility] Respitory Rate 18 09/06/2018 [facility] Heart Rate 68 09/06/2018 [facility] Respitory Rate 18 09/06/2018 [facility] Temperature Oral (F) 98.0 F 09/06/2018 [facility] Heart Rate 74 09/06/2018 [facility] Systolic (mm Hg) 152 09/06/2018 [facility] Diastolic (mm Hg) 67 09/06/2018 [facility] BMI Calculated 21.66 09/05/2018 [facility] Height 180.34 cm 09/05/2018 [facility] Weight 70.455 09/05/2018 [facility] Temperature Oral (F) 97.9 F 09/05/2018 [facility] Heart Rate 82 09/05/2018 [facility] Respitory Rate 18 09/05/2018 [facility] Systolic (mm Hg) 143 09/05/2018 [facility] Diastolic (mm Hg) 59 09/05/2018 [facility] Height 180.34 cm 02/17/2018 [facility] Weight 76.364 02/17/2018 [facility] BMI Calculated 23.48 02/17/2018 [facility] Heart Rate 67 02/17/2018 [facility] Systolic (mm Hg) 130 02/17/2018 [facility] Diastolic (mm Hg) 69 02/17/2018 [facility] Temperature Oral (F) 97.7 F 02/17/2018 [facility] Respitory Rate 18 02/17/2018 [facility] Respitory Rate 17 02/17/2018 [facility] Systolic (mm Hg) 136 02/17/2018 [facility] Diastolic (mm Hg) 69 02/17/2018 [facility] Respitory Rate 19 02/17/2018 [facility] Temperature Oral (F) 98.6 F 02/17/2018 [facility] Heart Rate 70 02/17/2018 [facility] Respitory Rate 18 02/17/2018 [facility] Systolic (mm Hg) 113 02/17/2018 [facility] Diastolic (mm Hg) 60 02/17/2018 [facility] BMI Calculated 26 02/17/2018 [facility] Height 180.34 cm 02/17/2018 [facility] Weight 84.545 02/17/2018 [facility] Respitory Rate 16 07/27/2017 [facility] Systolic (mm Hg) 128 07/27/2017 [facility] Diastolic (mm Hg) 72 07/27/2017 [facility] Heart Rate 68 07/27/2017 [facility] Temperature Oral (F) 98.0 F 07/27/2017 [facility] Weight 90.909 07/26/2017 [facility] Height 170.18 cm 07/26/2017 [facility] BMI Calculated 31.39 07/26/2017 [facility] Respitory Rate 16 07/26/2017 [facility] Temperature Oral (F) 97.9 F 07/26/2017 [facility] Heart Rate 79 07/26/2017 [facility] Systolic (mm Hg) 131 07/26/2017 [facility] Diastolic (mm Hg) 89 07/26/2017 [facility] BMI Calculated 25.16 05/19/2016 [facility] Weight 81.818 05/19/2016 [facility] Height 180.34 cm 05/19/2016 [facility] Temperature Oral (F) 97.7 F 05/19/2016 [facility] Respitory Rate 18 05/19/2016 [facility] Heart Rate 82 05/19/2016 [facility] Systolic (mm Hg) 133 05/19/2016 [facility] Diastolic (mm Hg) 78 05/19/2016 [facility] Heart Rate 89 05/16/2016 [facility] BMI Calculated 25.88 05/16/2016 [facility] Weight 81.818 05/16/2016 [facility] Height 177.8 cm 05/16/2016 [facility] Respitory Rate 17 05/16/2016 [facility] Temperature Oral (F) 98.0 F 05/16/2016 [facility] Systolic (mm Hg) 120 05/16/2016 [facility] Diastolic (mm Hg) 66 05/16/2016 [facility] Respitory Rate 20 05/10/2016 [facility] Systolic (mm Hg) 123 05/10/2016 [facility] Diastolic (mm Hg) 64 05/10/2016 [facility] Temperature Oral (F) 98.1 F 05/10/2016 [facility] Weight 79.545 05/10/2016 [facility] Temperature Oral (F) 98.0 F 05/10/2016 [facility] Heart Rate 84 05/10/2016 [facility] Respitory Rate 14 05/10/2016 [facility] Systolic (mm Hg) 136 05/10/2016 [facility] Diastolic (mm Hg) 77 05/10/2016 [facility] BMI Calculated 24.46 05/10/2016 [facility] Height 180.34 cm 05/10/2016 [facility] Encounters Location Location Details Encounter Type Encounter Number Reason For Visit Attending Provider ADM Date DC Date Status Source [facility] [id number] Angelia Nguyen 05/09/2016 05/10/2016 [facility] [id number] Elian Clayton 05/16/2016 05/17/2016 [facility] [id number] Jd Cathleen 05/19/2016 05/19/2016 [facility] [id number] Cassie Mahoney 07/26/2017 07/27/2017 [facility] [id number] Anthony Cardenas 02/17/2018 02/17/2018 [facility] [id number] William Hillman 02/17/2018 02/18/2018 [facility] [id number] Shay Garzon 04/03/2018 04/04/2018 [facility] [place] Outpt Diag Services [id number] Shay Garzon 04/03/2018 04/04/2018 [facility] Outpatient [id number] Shay Garzon 04/11/2018 04/11/2018 [facility] Outpatient [id number] Shay Garzon 04/15/2018 04/16/2018 [facility] Outpatient [id number] Shay Garzon 05/15/2018 05/16/2018 [facility] [id number] Shay Garzon 05/23/2018 06/22/2018 [facility] Emergency [id number] Cat 09/05/2018 09/06/2018 [facility] [place] Outpt Diag Services [id number] Shay Garzon 01/03/2019 01/04/2019 [facility] Procedures Procedure Code Date Perfomer Comments Source Hip arthroplasty<sup>1</sup> [id number] both hips [facility] Hip arthroplasty<sup>1</sup> [id number] both hips [facility] Hip arthroplasty<sup>1</sup> [id number] both hips [facility] Hip arthroplasty<sup>1</sup> 19723538 both hips [facility] Hip arthroplasty<sup>1</sup> [id number] both hips [facility] Hip arthroplasty<sup>1</sup> 54515212 [facility] Assessment and Plan No Data Provided for This Section Plan of Care No Data Provided for This Section Social History Social History Date Source Social History TypeResponse Smoking Status Former smoker; Type: Cigarettes; Previous treatment: None; Ready to change: No; Concerns about tobacco use in household: No; Exposure to Tobacco Smoke None; Cigarette Smoking Last 365 Days No; Reg Smoking Cessation Counseling No entered on: 09/05/18 09/06/2018 [facility] Social History TypeResponse Smoking Status Former smoker; Type: Cigarettes; Previous treatment: None; Ready to change: No; Concerns about tobacco use in household: No; Exposure to Tobacco Smoke None; Cigarette Smoking Last 365 Days No; Reg Smoking Cessation Counseling No entered on: 09/05/18 09/06/2018 [facility] Social History TypeResponse Smoking Status Former smoker; Type: Cigarettes; Previous treatment: None; Ready to change: No; Concerns about tobacco use in household: No; Exposure to Tobacco Smoke None; Cigarette Smoking Last 365 Days No; Reg Smoking Cessation Counseling No entered on: 09/05/18 09/06/2018 [facility] Social History TypeResponse Smoking Status Former smoker; Type: Cigarettes; Previous treatment: None; Ready to change: No; Concerns about tobacco use in household: No; Exposure to Tobacco Smoke None; Cigarette Smoking Last 365 Days No; Reg Smoking Cessation Counseling No entered on: 09/05/18 09/06/2018 [facility] Social History TypeResponse Smoking Status Former smoker; Type: Cigarettes; Previous treatment: None; Ready to change: No; Concerns about tobacco use in household: No; Exposure to Tobacco Smoke None; Cigarette Smoking Last 365 Days No; Reg Smoking Cessation Counseling No entered on: 09/05/18 09/06/2018 [facility] Social History TypeResponse Smoking Status Former smoker; Type: Cigarettes; Previous treatment: None; Ready to change: No; Concerns about tobacco use in household: No; Exposure to Tobacco Smoke None; Cigarette Smoking Last 365 Days No; Reg Smoking Cessation Counseling No entered on: 09/05/18 09/06/2018 [facility] Family History No Data Provided for This Section Advance Directives No Data Provided for This Section Functional Status No Data Provided for This Section
--- OUTSIDE RECORDS SUMMARY | 2019-02-15 17:22 | XMS REPORT | Summary of Care ---
Author Author [facility] Organization [facility] Address Unknown Phone Unavailable Encounter HQ Alice(FIN) [id number] Date(s): 04/11/18 - 04/11/18 [facility] [address] [place] [address]- [phone] Attending Physician: Shay Garzon MD Referring Physician: Shay Garzon MD Vital Signs No data available for this section Problem List Condition Effective Dates Status Health Status Informant Fall(Confirmed) Resolved Sciatic Active pain(Confirmed) Allergies, Adverse Reactions, Alerts Substance Reaction Severity Status penicillins Active Medications No data available for this section Results No data available for this section Immunizations Given and Recorded Vaccine Date Status Refusal Reason diphtheria/pertussis, acel/tetanus adult 05/09/16 Given Procedures Procedure Date Related Diagnosis Body Site Status Hip arthroplasty1 Completed 1both hips Social History Social History Type Response Smoking Status Former smoker; Type: Cigarettes; Previous treatment: None; Ready to change: No; Concerns about tobacco use in household: No; Exposure to Tobacco Smoke None; Cigarette Smoking Last 365 Days No; Reg Smoking Cessation Counseling No entered on: 09/05/18 Assessment and Plan No data available for this section
--- OUTSIDE RECORDS SUMMARY | 2019-02-15 17:22 | XMS REPORT | Summary of Care ---
Author Author [facility] [place] Organization [facility] [place] Address Unknown Phone Unavailable Encounter HQ Anthonyr_geraldo(FIN) [id number] Date(s): 01/03/19 - 01/03/19 [facility] [place] [address] [place] [address]- [phone] Discharge Disposition: Home or Self Care Attending Physician: Shay Garzon MD Referring Physician: [...]
--- OUTSIDE RECORDS SUMMARY | 2019-02-15 17:22 | XMS REPORT | Summary of Care ---
Author Author [facility] Organization [facility] Address Unknown Phone Unavailable Encounter HQ Alice(FIN) [id number] Date(s): 05/15/18 - 05/15/18 [facility] [address] [address]- [phone] Encounter Diagnosis Pain in right arm (Final) - 05/20/18 Pain in right hip (Final) - Ataxia, unspecified (Final) - Unspecified injury of head, initial encounter (Final) - Presence of right artificial hip joint (Final) - Discharge Disposition: Home or Self Care Attending Physician: Shay Garzon MD Vital Signs No [...]
--- OUTSIDE RECORDS SUMMARY | 2019-02-15 17:23 | XMS REPORT | Summary of Care ---
Author Author [facility] Address Unknown Phone Unavailable Encounter HQ Reji_geraldo(FIN) [id number] Date(s): 05/23/18 - 06/21/18 [facility] [place] Encounter Diagnosis Muscle weakness (generalized) (Final) - Muscle weakness (generalized) (Final) - 11/27/18 Low back pain (Final) - Repeated falls (Final) - Ataxia, unspecified (Final) - Discharge Disposition: Home or Self Care Attending Physician: Shay Grazon MD Vital Signs No data available for [...]
--- OUTSIDE RECORDS SUMMARY | 2019-02-15 17:23 | XMS REPORT | Summary of Care ---
Author Author [facility] Organization [facility] Address Unknown Phone Unavailable Encounter HQ Joycentr_geraldo(FIN) [id number] Date(s): 04/03/18 - 04/03/18 [facility] [place] [address] [place] [phone] Encounter Diagnosis Pain in right knee (Final) - 04/11/18 Unilateral primary osteoarthritis, right knee (Final) - Discharge Disposition: Home or Self [...]
--- OUTSIDE RECORDS SUMMARY | 2019-02-15 17:23 | XMS REPORT | Summary of Care ---
Author Author [facility] Organization [facility] Address Unknown Phone Unavailable Encounter HQ Alice(FIN) [id number] Date(s): 02/17/18 - 02/17/18 [facility] [address] [place] [address]- [phone] Encounter Diagnosis Accidental fall (Discharge Diagnosis) - 02/17/18 Concussion (Discharge Diagnosis) - 02/17/18 Discharge Disposition: Home or Self Care Attending Physician: Anthony Cardenas MD Vital Signs 1 2 3 Most recent to oldest [Reference Range]: 180.34 cm (02/17/18 8:31 AM) Height 98.6 DegF (02/17/18 8:31 AM) Temperature Oral [96.4-99.1 DegF] 136/69 mmHg (02/17/18 10:25 AM) 113/60 mmHg (02/17/18 8:31 AM) Blood Pressure [90-140/60-90 mmHg] 17 BRMIN (02/17/18 11:14 AM) 19 BRMIN (02/17/18 10:25 AM) 18 BRMIN (02/17/18 8:31 AM) Respiratory Rate [14-20 BRMIN] 70 bpm (02/17/18 8:31 AM) Peripheral Pulse Rate [60-100 bpm] 84.545 kg (02/17/18 8:31 AM) Weight 26 m2 (02/17/18 8:31 AM) Body Mass Index Problem List Condition Effective Dates Status Health Status Informant Fall(Confirmed) Resolved Sciatic Active pain(Confirmed) Allergies, Adverse Reactions, Alerts Substance Reaction Severity Status penicillins Active Medications No data available for this section Results ELECTROLYTES Most recent to 1 oldest [Reference Range]: Sodium Lvl [135-145 143 mEq/L mEq/L] (02/17/18 9:14 AM) Potassium Lvl 4.0 mEq/L [3.5-5.1 mEq/L] (02/17/18 9:14 AM) Chloride Lvl [95-109 106 mEq/L mEq/L] (02/17/18 9:14 AM) CO2 [24-32 mEq/L] 29 mEq/L (02/17/18 9:14 AM) AGAP [10.0-20.0 12.0 mEq/L mEq/L] (02/17/18 9:14 AM) CHEM PANEL Most recent to 1 oldest [Reference Range]: Creatinine Lvl 0.98 mg/dL [0.50-1.40 mg/dL] (02/17/18 9:14 AM) eGFR 59 mL/min/1.73m2 1 *NA* (02/17/18 9:14 AM) BUN [7-22 mg/dL] 14 mg/dL (02/17/18 9:14 AM) B/C Ratio [6-25] 14 (02/17/18 9:14 AM) Glucose Lvl [70-99 107 mg/dL mg/dL] *HI* (02/17/18 9:14 AM) Total Protein 6.9 g/dL [6.4-8.4 g/dL] (02/17/18 9:14 AM) Albumin Lvl [3.5-5.0 3.5 g/dL g/dL] (02/17/18 9:14 AM) Globulin [2.7-4.2 3.4 g/dL g/dL] (02/17/18 9:14 AM) A/G Ratio [0.7-1.6] 1.0 (02/17/18 9:14 AM) Calcium Lvl 8.7 mg/dL [8.5-10.5 mg/dL] (02/17/18 9:14 AM) Magnesium Lvl 2.0 mg/dL [1.8-2.4 mg/dL] (02/17/18 9:14 AM) ALT [0-65 unit/L] 25 unit/L (02/17/18 9:14 AM) AST [0-37 unit/L] 25 unit/L (02/17/18 9:14 AM) Alk Phos [39-136 51 unit/L unit/L] (02/17/18 9:14 AM) Bili Total [0.2-1.3 0.3 mg/dL mg/dL] (02/17/18 9:14 AM) Lipase Lvl [73-393 119 unit/L unit/L] (02/17/18 9:14 AM) 1Result Comment: The eGFR is calculated using the [...] from the National Kidney Disease Education Program ( NKDEP) which additionally recommends that when the eGFR is used in patients with extremes of body mass index for purposes of drug dosing, the eGFR should be mul tiplied by the estimated BMI. CARDIAC ENZYMES Most recent to 1 oldest [Reference Range]: Total CK [12-191 277 unit/L unit/L] *HI* (02/17/18 9:14 AM) CK MB [0.5-3.6 4.7 ng/mL ng/mL] *HI* (02/17/18 9:14 AM) CK MB Index 1.7 [0.0-2.5] (02/17/18 9:14 AM) Troponin-I <0.02 ng/mL [0.00-0.40 ng/mL] (02/17/18 9:14 AM) TOXICOLOGY Most recent to 1 oldest [Reference Range]: Etoh (%) <.003 % *NA* (02/17/18 9:16 AM) Ethanol Lvl <3 mg/dL *NA* (02/17/18 9:16 AM) URINE AND STOOL Most recent to 1 oldest [Reference Range]: UA Turbidity [Clear] Clear (02/17/18 10:23 AM) UA Color Ltyellow *NA* (02/17/18 10:23 AM) UA pH [5.0-8.0] 6.0 (02/17/18 10:23 AM) UA Spec Grav 1.008 [<=1.030] (02/17/18 10:23 AM) UA Glucose [Negative Negative mg/dL mg/dL] *NA* (02/17/18 10:23 AM) UA Blood [Negative] Small *ABN* (02/17/18 10:23 AM) UA Ketones [Negative Negative mg/dL mg/dL] *NA* (02/17/18 10:23 AM) UA Protein [Negative Negative mg/dL mg/dL] (02/17/18 10:23 AM) UA Urobilinogen <=1.0 mg/dL [0.1-1.0 mg/dL] *NA* (02/17/18 10:23 AM) UA Bili [Negative] Negative *NA* (02/17/18 10:23 AM) UA Leuk Est Negative [Negative] (02/17/18 10:23 AM) UA Nitrite Negative [Negative] (02/17/18 10:23 AM) UA WBC [0-5 /HPF] 1 /HPF (02/17/18 10:23 AM) UA RBC [0-2 /HPF] 3 /HPF *HI* (02/17/18 10:23 AM) UA Sq Epi [Few /LPF] Occasional /LPF *NA* (02/17/18 10:23 AM) HEMATOLOGY Most recent to 1 oldest [Reference Range]: WBC [3.7-10.4 K/CMM] 4.9 K/CMM (02/17/18 9:14 AM) RBC [4.20-5.40 4.35 M/CMM M/CMM] (02/17/18 9:14 AM) Hgb [12.0-16.0 g/dL] 13.4 g/dL (02/17/18 9:14 AM) Hct [36.0-48.0 %] 39.1 % (02/17/18 9:14 AM) MCV [80.0-98.0 fL] 90.0 fL (02/17/18 9:14 AM) MCH [27.0-31.0 pg] 30.7 pg (02/17/18 9:14 AM) MCHC [32.0-36.0 34.2 g/dL g/dL] (02/17/18 9:14 AM) RDW [11.5-14.5 %] 14.1 % (02/17/18 9:14 AM) MPV [7.4-10.4 fL] 9.4 fL (02/17/18 9:14 AM) Platelet [133-450 201 K/CMM K/CMM] (02/17/18 9:14 AM) Segs [45.0-75.0 %] 57.5 % (02/17/18 9:14 AM) Lymphocytes 28.7 % [20.0-40.0 %] (02/17/18 9:14 AM) Monocytes [2.0-12.0 9.5 % %] (02/17/18 9:14 AM) Eosinophils [0.0-4.0 3.5 % %] (02/17/18 9:14 AM) Basophils [0.0-1.0 0.8 % %] (02/17/18 9:14 AM) Segs-Bands # 2.8 K/CMM [1.5-8.1 K/CMM] (02/17/18 9:14 AM) Lymphocytes # 1.4 K/CMM [1.0-5.5 K/CMM] (02/17/18 9:14 AM) Monocytes # [0.0-0.8 0.5 K/CMM K/CMM] (02/17/18 9:14 AM) Eosinophils # 0.2 K/CMM [0.0-0.5 K/CMM] (02/17/18 9:14 AM) PT [12.0-14.7 12.3 seconds seconds] (02/17/18 9:14 AM) INR [0.85-1.17] 0.91 (02/17/18 9:14 AM) PTT [22.9-35.8 28.6 seconds seconds] (02/17/18 9:14 AM) Immunizations Given and Recorded Vaccine Date Status [...] Reg Smoking Cessation Counseling No entered on: 02/17/18 Assessment and Plan No data available for this section
--- OUTSIDE RECORDS SUMMARY | 2019-02-15 17:23 | XMS REPORT | Summary of Care ---
Author Author [facility] Organization [facility] Address Unknown Phone Unavailable Encounter LINDSAY Jenkins(GILBERTO) [id number] Date(s): 07/26/17 - 07/26/17 [facility] [address] [place] [address]- Discharge Diagnosis: Fall Discharge Diagnosis: Head injury Discharge Disposition: Home or Self Care Attending Physician: Cassie Mahoney DO Vital Signs Most recent to 1 2 oldest [Reference Range]: Height 170.18 cm (07/26/17 3:47 PM) Temperature Oral 98.0 DegF 97.9 DegF [96.4-99.1 DegF] (07/26/17 8:19 PM) (07/26/17 3:47 PM) Blood Pressure 128/72 mmHg 131/89 mmHg [90-140/60-90 mmHg] (07/26/17 8:19 PM) (07/26/17 3:47 PM) Respiratory Rate 16 BRMIN 16 BRMIN [14-20 BRMIN] (07/26/17 8:19 PM) (07/26/17 3:47 PM) Peripheral Pulse 68 bpm 79 bpm Rate [60-100 bpm] (07/26/17 8:19 PM) (07/26/17 3:47 PM) Weight 90.909 kg (07/26/17 3:47 PM) Body Mass Index 31.39 m2 (07/26/17 3:47 PM) Problem List Condition Effective Dates Status Health Status Informant Fall(Confirmed) Resolved Sciatic Active pain(Confirmed) Allergies, Adverse Reactions, Alerts Substance Reaction Severity Status penicillins Active Medications Ultram 50 mg oral tablet 50 mg=1 tab, PO, Q6H, X 3 day, # 11 tab, 0 Refill(s) Start Date: 07/26/17 Stop Date: 07/29/17 Status: Ordered Ultram 50 mg oral tablet 50 mg, Route: PO, Drug form: TAB, ONCE, Dosing Weight 90.909, kg, Priority: STAT , Start date: 07/26/17 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, Stop date: 07/26/17 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 Start Date: 07/26/17 Stop Date: 07/26/17 Status: Completed Results No data available for this section Immunizations Given and Recorded Vaccine Date Status Refusal Reason diphtheria/pertussis, acel/tetanus adult 05/09/16 Given Procedures Procedure Date Related Diagnosis Body Site Hip arthroplasty1 1both hips Social History Social History Type Response Smoking Status Former smoker; Type: Cigarettes; Previous treatment: None; Ready to change: No; Concerns about tobacco use in household: No; Exposure to Tobacco Smoke None; Cigarette Smoking Last 365 Days No; Reg Smoking Cessation Counseling No Assessment and Plan No data available for this section
--- OUTSIDE RECORDS SUMMARY | 2019-02-15 17:23 | XMS REPORT | Summary of Care ---
Author Author [facility] Organization [facility] Address Unknown Phone Unavailable Encounter HQ Alice(FIN) [id number] Date(s): 04/15/18 - 04/15/18 [facility] [address] [place] [address]- Encounter Diagnosis Spinal stenosis, lumbar region without neurogenic claudication (Final) - 04/22/18 Osteophyte, vertebrae (Final) - Discharge Disposition: Home or Self Care Attending Physician: Shay Garzon MD Referring Physician: Shay Garzon MD Vital Signs No data available for this section Problem List Condition Effective Dates Status Health Status Informant Fall(Confirmed) Resolved Sciatic Active pain(Confirmed) Allergies, Adverse Reactions, Alerts Substance Reaction Severity Status penicillins Active Medications Omnipaque 180 10 mg/mL, Route: INTRATHECAL, ONCE, Dosing Weight 76.364, kg, Start date: 7:51:00 CDT, Stop date: 04/11/18 7:51:00 CDT Start Date: 04/11/18 Stop Date: 04/12/18 Status: Discontinued Omnipaque 180 1,800 mg, 10 mL, Route: INTRATHECAL, Drug form: SOLN, ONCE, Dosing Weight 76.364 , kg, Start date: 04/15/18 9:09:00 CDT, Stop date: 04/15/18 9:09:00 CDT Notes: (Same as:Omnipaque 180).WASTE: F/P - Black; E - Municipal Trash Bin Start Date: 04/15/18 Stop Date: 04/15/18 Status: Completed Results No data available for [...]
--- OUTSIDE RECORDS SUMMARY | 2019-02-15 17:23 | XMS REPORT | Summary of Care ---
Author Author [facility] Organization [facility] Address Unknown Phone Unavailable Encounter LINDSAY Jenkins(GILBERTO) [id number] Date(s): 02/17/18 - 02/17/18 [facility] [address] [place] [address]- Discharge Disposition: Elopement Attending Physician: William Hillman MD Vital Signs Most recent to 1 oldest [Reference Range]: Height 180.34 cm (02/17/18 4:23 PM) Temperature Oral 97.7 DegF [96.4-99.1 DegF] (02/17/18 4:23 PM) Blood Pressure 130/69 mmHg [90-140/60-90 mmHg] (02/17/18 4:23 PM) Respiratory Rate 18 BRMIN [14-20 BRMIN] (02/17/18 4:23 PM) Peripheral Pulse 67 bpm Rate [60-100 bpm] (02/17/18 4:23 PM) Weight 76.364 kg (02/17/18 4:23 PM) Body Mass Index 23.48 m2 (02/17/18 4:23 PM) Problem List Condition Effective Dates Status [...]
--- OUTSIDE RECORDS SUMMARY | 2019-02-15 17:24 | XMS REPORT | Summary of Care ---
Author Author [facility] Organization [facility] Address Unknown Phone Unavailable Encounter HQ Alice(FIN) [id number] Date(s): 02/17/18 - 02/17/18 [facility] [address] [place] [address]- Encounter Diagnosis Anesthesia of skin (Final) - 02/27/18 Discharge Disposition: Left Without Being Seen Attending Physician: William Hillman MD Vital Signs [...]
--- OUTSIDE RECORDS SUMMARY | 2019-02-15 17:24 | XMS REPORT | Summary of Care ---
Author Author [facility] Organization [facility] Address Unknown Phone Unavailable Encounter HQ Reji_geraldo(FIN) [id number] Date(s): 04/03/18 - 04/03/18 [facility] Outpatient Imaging [address] [phone] Discharge Disposition: Home or Self Care Attending [...]
--- OUTSIDE RECORDS SUMMARY | 2019-02-15 17:24 | XMS REPORT | Summary of Care ---
Author Author [facility] Organization [facility] Address Unknown Phone Unavailable Encounter HQ Alice(FIN) [id number] Date(s): 02/17/18 - 02/17/18 [facility] [address] [place] [address]- [phone] Encounter Diagnosis Accidental fall (Discharge Diagnosis) - 02/17/18 Concussion (Discharge Diagnosis) - 02/17/18 Concussion without loss of consciousness, initial encounter (Final) - 02/22/18 Sciatica, left side (Final) - Essential (primary) hypertension (Final) - Fall on same level from slipping, tripping and stumbling without subsequent stri verónica against object, initial encounter (Final) - Alcohol dependence, uncomplicated (Final) - Discharge Disposition: Home or Self [...] [0.0-1.0 0.8 % %] (02/17/18 9:14 AM) Neutrophils # 2.8 K/CMM [1.5-8.1 K/CMM] (02/17/18 9:14 [...]
--- OUTSIDE RECORDS SUMMARY | 2019-02-15 17:24 | XMS REPORT | Summary of Care ---
Author Author [facility] Organization [facility] Address Unknown Phone Unavailable Encounter HQ Alice(FIN) [id number] Date(s): 09/05/18 - 09/06/18 [facility] [address] [place] [address]- Encounter Diagnosis Accidental fall (Discharge Diagnosis) - 09/06/18 Acute back pain (Discharge Diagnosis) - 09/06/18 Discharge Disposition: Home or Self Care Attending Physician: Angelia Nguyen DO Vital Signs 1 2 3 Most recent to oldest [Reference Range]: 180.34 cm (09/05/18 5:13 PM) Height 98.2 DegF (09/06/18 1:23 AM) 98.0 DegF (09/05/18 11:59 PM) 97.9 DegF (09/05/18 5:13 PM) Temperature Oral [96.4-99.1 DegF] 148/68 mmHg *HI* (09/06/18 1:23 AM) 152/67 mmHg *HI* (09/05/18 11:59 PM) 143/59 mmHg *HI* (09/05/18 5:13 PM) Blood Pressure [90-140/60-90 mmHg] 18 BRMIN (09/06/18 1:23 AM) 18 BRMIN (09/05/18 11:59 PM) 18 BRMIN (09/05/18 5:13 PM) Respiratory Rate [14-20 BRMIN] 68 bpm (09/06/18 1:23 AM) 74 bpm (09/05/18 11:59 PM) 82 bpm (09/05/18 5:13 PM) Peripheral Pulse Rate [60-100 bpm] 70.455 kg (09/05/18 5:13 PM) Weight 21.66 m2 (09/05/18 5:13 PM) Body Mass Index Problem List Condition Effective Dates Status Health Status Informant Fall(Confirmed) Resolved Sciatic Active pain(Confirmed) Allergies, Adverse Reactions, Alerts Substance Reaction Severity Status penicillins Active Medications Ativan 1 mg, 1 tab, Route: PO, Drug form: TAB, ONCE, Dosing Weight 70.455, kg, Priority : STAT, Start date: 09/05/18 23:39:00 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, Stop date: 09/05/18 23:39:00 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 Notes: (Same as: Ativan) Start Date: 09/05/18 Stop Date: 09/06/18 Status: Completed Results ELECTROLYTES Most recent to 1 oldest [Reference Range]: Sodium Lvl [135-145 141 mEq/L mEq/L] (09/05/18 11:11 PM) Potassium Lvl 3.8 mEq/L [3.5-5.1 mEq/L] (09/05/18 11:11 PM) Chloride Lvl [95-109 108 mEq/L mEq/L] (09/05/18 11:11 PM) CO2 [24-32 mEq/L] 28 mEq/L (09/05/18 11:11 PM) AGAP [10.0-20.0 8.8 mEq/L mEq/L] *LOW* (09/05/18 11:11 PM) CHEM PANEL Most recent to 1 oldest [Reference Range]: Creatinine Lvl 0.98 mg/dL [0.50-1.40 mg/dL] (09/05/18 11:11 PM) eGFR 58 mL/min/1.73m2 1 *NA* (09/05/18 11:11 PM) BUN [7-22 mg/dL] 10 mg/dL (09/05/18 11:11 PM) B/C Ratio [6-25] 10 (09/05/18 11:11 PM) Glucose Lvl [70-99 95 mg/dL mg/dL] (09/05/18 11:11 PM) Total Protein 7.8 g/dL [6.4-8.4 g/dL] (09/05/18 11:11 PM) Albumin Lvl [3.5-5.0 3.8 g/dL g/dL] (09/05/18 11:11 PM) Globulin [2.7-4.2 4.0 g/dL g/dL] (09/05/18 11:11 PM) A/G Ratio [0.7-1.6] 1.0 (09/05/18 11:11 PM) Calcium Lvl 9.3 mg/dL [8.5-10.5 mg/dL] (09/05/18 11:11 PM) ALT [0-65 unit/L] 26 unit/L (09/05/18 11:11 PM) AST [0-37 unit/L] 37 unit/L (09/05/18 11:11 PM) Alk Phos [39-136 60 unit/L unit/L] (09/05/18 11:11 PM) Bili Total [0.2-1.3 0.5 mg/dL mg/dL] (09/05/18 11:11 PM) 1Result Comment: The eGFR is calculated using [...] be mul tiplied by the estimated BMI. HEMATOLOGY Most recent to 1 oldest [Reference Range]: WBC [3.7-10.4 K/CMM] 6.9 K/CMM (09/05/18 11:11 PM) RBC [4.20-5.40 4.40 M/CMM M/CMM] (09/05/18 11:11 PM) Hgb [12.0-16.0 g/dL] 13.2 g/dL (09/05/18 11:11 PM) Hct [36.0-48.0 %] 39.3 % (09/05/18 11:11 PM) MCV [80.0-98.0 fL] 89.4 fL (09/05/18 11:11 PM) MCH [27.0-31.0 pg] 30.0 pg (09/05/18 11:11 PM) MCHC [32.0-36.0 33.6 g/dL g/dL] (09/05/18 11:11 PM) RDW [11.5-14.5 %] 13.8 % (09/05/18 11:11 PM) MPV [7.4-10.4 fL] 9.0 fL (09/05/18 11:11 PM) Platelet [133-450 265 K/CMM K/CMM] (09/05/18 11:11 PM) Segs [45.0-75.0 %] 56.7 % (09/05/18 11:11 PM) Lymphocytes 31.0 % [20.0-40.0 %] (09/05/18 11:11 PM) Monocytes [2.0-12.0 8.9 % %] (09/05/18 11:11 PM) Eosinophils [0.0-4.0 2.6 % %] (09/05/18 11:11 PM) Basophils [0.0-1.0 0.8 % %] (09/05/18 11:11 PM) Neutrophils # 3.9 K/CMM [1.5-8.1 K/CMM] (09/05/18 11:11 PM) Lymphocytes # 2.1 K/CMM [1.0-5.5 K/CMM] (09/05/18 11:11 PM) Monocytes # [0.0-0.8 0.6 K/CMM K/CMM] (09/05/18 11:11 PM) Eosinophils # 0.2 K/CMM [0.0-0.5 K/CMM] (09/05/18 11:11 PM) Basophils # [0.0-0.2 0.1 K/CMM K/CMM] (09/05/18 11:11 PM) Immunizations Given and Recorded Vaccine Date Status [...]
--- OUTSIDE RECORDS SUMMARY | 2019-02-15 17:25 | XMS REPORT | Summary of Care ---
Author Author [facility] Organization [facility] Address Unknown Phone Unavailable Encounter LINDSAY Jenkins(GILBERTO) [id number] Date(s): 05/19/16 - 05/19/16 [facility] [address] [place] [address]- [phone] Discharge Diagnosis: Visit for suture removal Discharge Disposition: Home or Self Care Attending Physician: Jd Connolly MD Vital Signs Most recent to 1 oldest [Reference Range]: Height 180.34 cm (05/19/16 7:30 AM) Temperature Oral 97.7 DegF [96.4-99.1 DegF] (05/19/16 7:30 AM) Blood Pressure 133/78 mmHg [90-140/60-90 mmHg] (05/19/16 7:30 AM) Respiratory Rate 18 BRMIN [14-20 BRMIN] (05/19/16 7:30 AM) Peripheral Pulse 82 bpm Rate [60-100 bpm] (05/19/16 7:30 AM) Weight 81.818 kg (05/19/16 7:30 AM) Body Mass Index 25.16 m2 (05/19/16 7:30 AM) Problem List Condition Effective Dates Status Health Status Informant Fall(Confirmed) Resolved Sciatic Active pain(Confirmed) Allergies, Adverse Reactions, Alerts Substance Reaction Severity Status penicillins Active Medications Keflex 500 mg oral capsule 500 mg=1 cap, PO, QID, X 7 day, # 28 cap, 0 Refill(s) Start Date: 05/19/16 Stop Date: 05/26/16 Status: Ordered Results No data available for this section [...]
--- OUTSIDE RECORDS SUMMARY | 2019-02-15 17:25 | XMS REPORT | Summary of Care ---
Author Author [facility] Unknown Address Unknown Phone Unavailable Care Team Providers Care Fraud Prevention Analyst Name Role Phone KASANDRA Gracia, CONTRERAS Unavailable Unavailable KASANDRA BLACKWELL SD, CONTRERAS Unavailable Unavailable Unavailable Unavailable Functional Status Name [...] head, initial encounter (959.01, S09.90XA) Status: Active Neck pain (723.1, M54.2) Status: Active Weakness (780.79, R53.1) Status: Active Medications Name Dates Details Medications not documented Allergies and Adverse Reactions Name Dates Details Allergy history not documented Status: Procedures Procedure Dates Details Procedures not documented Immunization Name Dates Details Immunizations not documented Social History Name Dates Details Unknown if ever smoked Vital Signs Date Test Result Details No Known Vitals to report Results Date Description Value Details Results not documented Plan of Care Name Dates Details Planned Observations Planned Goals not documented Planned Encounters Neurology Referral Instructions Name Dates Details Instructions not documented [...] Diagnosis: Problem not documented On: 05-Jun-2018 13:00 Appointment; CONTRERAS SLAUGHTER M.D. Encounter Diagnosis: Problem not documented On: 18-Dec-2018 13:30 Appointment; CONTRERAS SLAUGHTER M.D. Encounter Diagnosis: Problem not documented On: 27-Jan-2019 10:45
--- OUTSIDE RECORDS SUMMARY | 2019-02-15 17:25 | XMS REPORT | Summary of Care ---
Author Author [facility] Organization [facility] Address Unknown Phone Unavailable Encounter LINDSAY Jenkins(GILBERTO) [id number] Date(s): 05/09/16 - 05/09/16 [facility] [address] [place] [address]- [phone] Discharge Diagnosis: Laceration of occipital region of scalp Discharge Diagnosis: Closed head injury Discharge Disposition: Home or Self Care Attending Physician: Angelia Nguyen DO Vital Signs Most recent to 1 2 oldest [Reference Range]: Height 180.34 cm (05/09/16 7:06 PM) Temperature Oral 98.1 DegF 98.0 DegF [96.4-99.1 DegF] (05/09/16 10:33 PM) (05/09/16 7:06 PM) Blood Pressure 123/64 mmHg 136/77 mmHg [90-140/60-90 mmHg] (05/09/16 10:33 PM) (05/09/16 7:06 PM) Respiratory Rate 20 BRMIN 14 BRMIN [14-20 BRMIN] (05/09/16 10:33 PM) (05/09/16 7:06 PM) Peripheral Pulse 84 bpm Rate [60-100 bpm] (05/09/16 7:06 PM) Weight 79.545 kg (05/09/16 7:06 PM) Body Mass Index 24.46 m2 (05/09/16 7:06 PM) Problem List Condition Effective Dates Status Health Status Informant Fall(Confirmed) Resolved Allergies, Adverse Reactions, Alerts Substance Reaction Severity Status penicillins Active Medications acetaminophen-hydrocodone 325 mg-5 mg oral tablet 1 tab, Route: PO, Drug Form: TAB, Dosing Weight 79.545, kg, ONCE, STAT, Start da te: 05/09/16 22:23:00 CDT, Stop date: 05/09/16 22:23:00 CDT Start Date: 05/09/16 Stop Date: 05/09/16 Status: Completed Results No data available for this section Immunizations Given and Recorded Vaccine Date Status Refusal Reason diphtheria/pertussis, acel/tetanus adult 05/09/16 Given Procedures No data available for this section Social History Social History Type Response Smoking Status Former smoker; Type: Cigarettes; Previous treatment: None; Ready to change: No; Concerns about tobacco use in household: No; Exposure to Tobacco Smoke None; Cigarette Smoking Last 365 Days No; Reg Smoking Cessation Counseling No Assessment and Plan No data available for this section
--- OUTSIDE RECORDS SUMMARY | 2019-02-15 17:25 | XMS REPORT | Summary of Care ---
Author Author [facility] Organization [facility] Address Unknown Phone Unavailable Encounter LINDSAY Jenkins(GILBERTO) [id number] Date(s): 05/16/16 - 05/16/16 [facility] [address] [place] [address]- Discharge Disposition: Left Against Medical Advise Attending Physician: Elian Arnold DO Vital Signs Most recent to 1 oldest [Reference Range]: Height 177.8 cm (05/16/16 3:13 PM) Temperature Oral 98.0 DegF [96.4-99.1 DegF] (05/16/16 3:13 PM) Blood Pressure 120/66 mmHg [90-140/60-90 mmHg] (05/16/16 3:13 PM) Respiratory Rate 17 BRMIN [14-20 BRMIN] (05/16/16 3:13 PM) Peripheral Pulse 89 bpm Rate [60-100 bpm] (05/16/16 3:13 PM) Weight 81.818 kg (05/16/16 3:13 PM) Body Mass Index 25.88 m2 (05/16/16 3:13 PM) Problem List Condition Effective Dates Status [...]
[2019-02-15] MEDS ORDERED: CYCLOBENZAPRINE10 MG PO (18:08)
[2019-02-15] MEDS ORDERED: TYLENOL WITH C1 EACH PO (18:08)
[2019-02-15] MEDS ORDERED: SENNOSIDES8.6 MG PO (18:08)
[2019-02-15] MEDS ORDERED: BUSPIRONE HCL10 MG PO (18:08)
[2019-02-15] MEDS ORDERED: LORAZEPAM0.5 MG PO (18:08)
[2019-02-15] MEDS ORDERED: FERROUS SULFAT325 MG PO (18:08)
[2019-02-15] MEDS ORDERED: Potassium PO (18:08)
[2019-02-15] MEDS ORDERED: VITAMIN B-121000 MCG PO (18:08)
[2019-02-15 18:14] LABS: BILIRUBIN,URINE NEGATIVE (NEGATIVE); CLARITY,URINE CLEAR (CLEAR); COLOR,URINE YELLOW (YELLOW); KETONES,URINE NEGATIVE (NEGATIVE); LEUKOCYTE ESTERASE ,URINE NEGATIVE (NEGATIVE); NITRITE,URINE NEGATIVE (NEGATIVE); PROTEIN,URINE DIPSTICK NEGATIVE (NEGATIVE); URINE UROBILINOGEN 0.2 mg/dL (0.2 - 1)
[2019-02-15 18:19] LABS: BASOPHILS # (AUTO) 0.1 (0.0-0.1); BASOPHILS % 1.3 % (0.0-1.0); EOSINOPHILS # (AUTO) 0.4 (0.0-0.4); EOSINOPHILS % 6.7 % (0.0-6.0); HEMATOCRIT 34.8 % (34.2-44.1); HEMOGLOBIN 11.8 g/dL (12.0-16.0); LYMPHOCYTES # (AUTO) 1.7 (1.0-3.2); LYMPHOCYTES % 30.2 % (18.0-39.1); MEAN CORPUSCULAR HGB CONC 33.9 g/dL (31-35); MEAN CORPUSCULAR VOLUME 91.3 fL (81-99); MONOCYTES # (AUTO) 0.6 (0.2-0.8); MONOCYTES % 10.7 % (4.4-11.3); NEUTROPHILS # (AUTO) 2.8 (2.1-6.9); NEUTROPHILS % 50.4 % (38.7-80.0); PLATELET COUNT 234 x10e3/uL (140-360); RED BLOOD COUNT 3.81 x10e6/uL (3.6-5.1); RED CELL DISTRIBUTION WIDTH 13.2 % (11.7-14.4)
[2019-02-15 18:21] LABS: INR 0.86; PROTHROMBIN TIME 12.2 seconds (11.9-14.5)
[2019-02-15 18:22] LABS: PARTIAL THROMBOPLASTIN TIME 27.8 seconds (23.8-35.5)
[2019-02-15 18:32] LABS: ALANINE AMINOTRANSFERASE 24 IU/L (0-55); ALBUMIN 3.6 g/dL (3.5-5.0); ALBUMIN/GLOBULIN RATIO 1.2 (0.8-2.0); ALKALINE PHOSPHATASE 51 IU/L (40-150); ANION GAP 14.2 mmol/L (8-16); BLOOD UREA NITROGEN 17 mg/dL (7-26); BUN/CREATININE RATIO 19 (6-25); CALCIUM 9.1 mg/dL (8.4-10.2); CARBON DIOXIDE 28 mmol/L (22-29); CHLORIDE 101 mmol/L (98-107); CREATINE KINASE 619 IU/L (29-168); CREATININE, SERUM 0.89 mg/dL (0.57-1.11); EST GLOMERULAR FILTRATION RATE > 60 ML/MIN (60-); GLUCOSE 103 mg/dL (74-118); POTASSIUM 4.2 mmol/L (3.5-5.1); SODIUM 139 mmol/L (136-145)
[2019-02-15 18:33] LABS: BACTERIA,URINE RARE /HPF; EPITHELIAL CELLS,URINE RARE /LPF; RBC,URINE 0-5 /HPF (0-5); WBC,URINE (MAN) 0-5 /HPF (0-5)
--- NOTE | 2019-02-15 18:40 | Diagnostic Imaging Report ---
CT BRAIN WO HISTORY: Trauma COMPARISON: Head CT 11/10/2018 Technique: Noncontrast axial scans were obtained from skull base to the vertex. Coronal and sagittal reconstructions obtained from the axial data. One or more of the following dose reduction techniques were used: Automated exposure control, adjustment of the mA and/or kV according to patient size, and/or utilization of iterative reconstruction technique. DISCUSSION: Scalp/Skull: Right parietal scalp hematoma. No calvarial fracture. Brain sulci: Mildly prominent. Ventricles: Compensatory dilatation. Extra-axial spaces: No masses or fluid collections. Carotid siphon calcifications are present. Parenchyma: Mild bilateral deep white matter hypodensity is likely chronic microvascular ischemic change. Otherwise, no masses, hemorrhage, or large vascular territory acute infarct. Dural sinuses: No abnormal densities. Sellar/Suprasellar region: Intact. Skull base: Intact. Incidental findings: Mild ethmoid air cell mucosal thickening. IMPRESSION: 1. No acute intracranial abnormalities. 2. Mild supratentorial chronic microvascular ischemic change. Mild generalized cerebral volume loss. Signed by: Dr. Ted Sheehan M.D. on 02/15/2019 6:36 PM
--- NOTE | 2019-02-15 18:43 | Diagnostic Imaging Report ---
CT CERVICAL SPINE WO HISTORY: Trauma COMPARISON: Cervical spine CT 11/10/2018 TECHNIQUE: CT of the cervical spine without contrast. Sagittal and coronal reformations were created. One or more of the following dose reduction techniques were used: Automated exposure control, adjustment of the mA and/or kV according to patient size, and/or utilization of iterative reconstruction technique. FINDINGS: Mild bone demineralization limits evaluation. Cervical lordosis is straightened. There is no scoliosis or subluxation. No definite acute fracture or compression deformity is seen. The craniocervical junction is intact. No gross spinal canal masses are seen. The paravertebral and paraspinal soft tissues are unremarkable. Degenerative changes: Mild multilevel spondylosis is most prominent at C5-C6. Prominent multilevel bilateral facet arthrosis is present as well. IMPRESSION: 1. No acute osseous abnormalities. 2. Degenerative changes as described above. Signed by: Dr. Ted Sheehan M.D. on 02/15/2019 6:40 PM
[2019-02-15] MEDS ORDERED: HYDROCODONE/APAP 10MG-325MG TAB PO NR (18:45)
[2019-02-15] MEDS ORDERED: HYDROCODONE/APAP 10MG-325MG TAB ONE (18:46)
--- NOTE | 2019-02-15 18:48 | Diagnostic Imaging Report ---
CT LUMBAR SPINE WO HISTORY: Trauma COMPARISON: None. TECHNIQUE: Axial CT images of the lumbar spine were obtained without contrast. Coronal and sagittal reconstructions obtained from the axial data. One or more of the following dose reduction techniques were used: Automated exposure control, adjustment of the mA and/or kV according to patient size, and/or utilization of iterative reconstruction technique. DISCUSSION: Mild bone demineralization limits evaluation. There are 5 nonrib-bearing lumbar vertebral bodies. Lumbar lordosis is preserved. There is no significant scoliosis or subluxation. No definite acute fracture or compression deformity is seen. Mild, chronic-appearing deformity of the left L2 and left L3 transverse processes may be from remote fractures. No gross spinal canal mass is seen. The paravertebral and paraspinal soft tissues are unremarkable. Degenerative changes: Mild to moderate multilevel spondylosis is most prominent at L4-L5. L1-L2: No gross canal or foraminal stenosis. L2-L3: No gross canal or foraminal stenosis. L3-L4: Mild left foraminal stenosis due to disc bulge and facet arthrosis. No gross canal or right foraminal stenosis. L4-L5: Mild canal stenosis due to disc bulge and ligamentum flavum thickening. Moderate right and mild left foraminal stenoses due to posterior disc osteophyte complexes and facet arthrosis. L5-S1: Mild left foraminal stenosis due to disc bulge and facet arthrosis. No gross canal or right foraminal stenosis. Left hip arthroplasty is partially visualized. There are mild degenerative changes in the bilateral sacroiliac joints. IMPRESSION: 1. No acute osseous abnormalities. 2. Degenerative changes as described above. Signed by: Dr. Ted Sheehan M.D. on 02/15/2019 6:45 PM
--- NOTE | 2019-02-15 18:58 | NUR ---
received report from LAWRENCE Cabello. pt awake alert skin w/d resp nonlab. nad noted. awaiting disposition.
[2019-02-15] MEDS ORDERED: ALBUTEROL SULF 0.083% NEB SOLN 3 ML NEB NEB PRN (19:00)
[2019-02-15] MEDS ORDERED: LORAZEPAM 0.5 MG TAB PO PRN (19:00)
[2019-02-15] MEDS ORDERED: SODIUM CHLORIDE 0.9% 1000ML 1,000 ML IV ONE (19:00)
[2019-02-15] MEDS ORDERED: ONDANSETRON HCL INJ 2MG/ML 2ML 2 MG/ML VIAL IV PRN (19:00)
--- OUTSIDE RECORDS SUMMARY | 2019-02-15 19:16 | XMS REPORT | Clinical Summary ---
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 glenohumeral joint effusion. ROTATOR CUFF AND ASSOCIATED STRUCTURES Rotator cuff: Significant tendinosis of the anterior fibers the supraspinatus is present. Conjoint tendon tendinosis and anterior fibers of the infraspinatus is also present. No focal disruption is identified. Subscapularis and teres minor are intact. Musculature: Small intramuscular cystic changes present involving the central [place]he of the supraspinatus at the myotendinous junction. Bursa: Moderate fluid in subacromial subdeltoid bursa. Acromioclavicular joint: There are moderate degenerative changes of the acromioclavicular joint. A type 1 acromion configuration is noted. OSSEOUS STRUCTURES No fracture. Visualized bone marrow signal is normal. Only the proximal most aspect of the left humerus is evaluated. No significant no mildly is seen along the medial cortical margin or along the marrow of the visualized section of the humerus. Only the proximal 8 cm of the humerus is included in the current evaluation. OTHER FINDINGS: None. IMPRESSION IMPRESSION: 1. Significant tendinosis of the anterior fibers the supraspinatus and also of the infraspinatus anterior fibers are noted. 2. Only the proximal 8 centimeters the humerus is included in the current evaluation. No significant abnormality seen involving the medial cortex of the humerus or of the marrow space. 3. Small intracystic change in the myotendinous junction of the supraspinatus line mild degenerative changes acromioclavicular joint. 4. Small subacromial subdeltoid bursitis. Signed By: Vick Renee MD, 01/22/2019 11:28 AM Performing Organization Address City/State/Zipcode Phone Number SMS * UREA NITROGEN/CREA (12/25/2018 1:29 PM CDT) BUN 19 7 - 25 mg/dL [facility] 1 Creatinine 0.80 0.6 - 1.2 mg/dL [facility] 1 GFR, Estimated >60 mL/min/1.73 m2 [facility] 1 eGFR If Africn >60 mL/min/1.73 m2 [facility] Am 1 Specimen Other (Specify in Comments) Performing Organization Address City/State/Zipcode Phone Number MISYS [facility] * CREATININE (11/21/2018 11:04 AM CDT) Only the most recent of 2 results within the time period is included. Creatinine 0.90 0.6 - 1.2 mg/dL [facility] 1 GFR, Estimated >60 mL/min/1.73 m2 [facility] 1 eGFR If Africn >60 mL/min/1.73 m2 [facility] Am 1 Specimen Blood Performing Organization Address City/State/Zipcode Phone Number MISYS [facility] * XRAY SHOULDER 2 VIEWS MIN (11/11/2018 10:20 AM CDT) Specimen Impressions Performed At IMPRESSION: SMS Questionable irregular periosteal reaction with subtle bone permeation involving the proximal humeral diaphysis. This may be related to deltoid insertion and osseous demineralization. However, recommend bone scan to exclude malignancy as it can present in a similar fashion Mild to moderate degenerative changes of the acromioclavicular and glenohumeral joints. Dictated By: Michelle Sheikh DO, 11/11/2018 1:19 PM I have reviewed the study and agree with the findings in this report. Signed By: Devon Tran DO, 11/11/2018 4:14 PM Narrative Performed At Left shoulder radiographs: 2 VIEWS SMS HISTORY:shoulder pain COMPARISON: None DISCUSSION: Bone: No acute displaced fracture. Subtle periosteal thickening along the of the proximal humeral diaphysis with subtle permeation of the bone at this location. Chronic fracture deformity of the anterior third rib Adequate internal/external rotation. Joint(s): Mild to moderate degenerative changes of the acromioclavicular and glenohumeral joints. No dislocation. Soft tissues: The soft tissues appear unremarkable. Procedure Note Interface, Rad/Mammog In - 11/11/2018 4:19 PM CDT Left shoulder radiographs: 2 VIEWS HISTORY: shoulder pain COMPARISON: None DISCUSSION: Bone: No acute displaced fracture. Subtle periosteal thickening along the of the proximal humeral diaphysis with subtle permeation of the bone at this location. Chronic fracture deformity of the anterior third rib Adequate internal/external rotation. Joint(s): Mild to moderate degenerative changes of the acromioclavicular and glenohumeral joints. No dislocation. Soft tissues: The soft tissues appear unremarkable. IMPRESSION IMPRESSION: Questionable irregular periosteal reaction with subtle bone permeation involving the proximal humeral diaphysis. This may be related to deltoid insertion and osseous demineralization. However, recommend bone scan to exclude malignancy as it can present in a similar fashion Mild to moderate degenerative changes of the acromioclavicular and glenohumeral joints. Dictated By: Michelle Sheikh DO, 11/11/2018 1:19 PM I have reviewed the study and agree with the findings in this report. Signed By: Devon Tran DO, 11/11/2018 4:14 PM Performing Organization Address City/[facility] Phone Number SMS * HEMOGLOBIN A1C (07/24/2018 11:25 AM TAXATION ECONOMIST) Hemoglobin A1c 5.8 4.3 - 6.1 % BT DI[facility]NOSTIC IMMUNOLOGY Est Average 119.8 mg/dL BT DIAGNOSTIC Gluc IMMUNOLOGY Specimen Blood Performing Organization Address [facility] Phone Number MISYS BT DIAGNOSTIC IMMUNOLOGY * COMPREHENSIVE METABOLIC PANEL(DBIL NOT INCLUDED) (07/24/2018 11:25 AM TAXATION ECONOMIST) Albumin 4.1 3.7 - 5.3 g/dL [facility] 1 Calcium 9.4 8.6 - 10.3 mg/dL [facility] 1 CO2 28 21 - 31 mmol/L [facility] 1 Chloride 101 98 - 107 mmol/L [facility] 1 Creatinine 1.00 0.6 - 1.2 mg/dL [facility] 1 Glucose 125 (H) 70 - 110 mg/dL [facility] 1 Alkaline 55 34 - 104 U/L [facility] Phosphatase, S 1 Potassium 4.3 3.5 - 5.1 mmol/L [facility] 1 Sodium 137 136 - 145 mmol/L [facility] 1 ALT 19 7 - 52 U/L [facility] 1 AST (SGOT) 24 13 - 39 U/L [facility] 1 BUN 16 7 - 25 mg/dL [facility] 1 Bilirubin, 0.4 0.2 - 1.2 mg/dL [facility] Total 1 Protein, Total, 7.1 6.0 - 8.3 g/dL [facility] Serum 1 GFR, Estimated 55 mL/min/1.73 m2 [facility] 1 eGFR If Africn >60 mL/min/1.73 m2 [facility] Am 1 Anion Gap 8 [facility] 1 Specimen Blood Performing Organization Address [facility] Phone Number MISYS [facility] * TSH (07/24/2018 11:25 AM TAXATION ECONOMIST) Only the most recent of 2 results within the time period is included. TSH 1.65 0.57 - 3.74 uIU/mL [facility] 1 Specimen Blood Performing Organization Address [facility] Phone Number M[facility]YS [facility] * URIC ACID (07/24/2018 11:25 AM TAXATION ECONOMIST) Uric acid 7.1 (H) 2.3 - 6.6 mg/dL [facility] 1 Specimen Blood Performing Organization Address [facility] Phone Number [facility]YS [facility] * CBC/DIFF (07/24/2018 11:25 AM TAXATION ECONOMIST) WBC 7.1 4.5 - 11.0 K/uL BT [...] 36.4 - 46.3 fL [facility] 2 Platelets 282 150 - 400 K/uL [facility] 2 Mean Platelet 11.9 9.4 - 12.4 fL [facility] Volume 2 Percent NRBC 0.0 [facility] 2 Absolute NRBC 0.00 [facility] 2 Neutrophils 68.0 34.0 - 70.0 % [facility] 2 Lymphs 20.7 20.0 - 50.0 % [facility] 2 Monocytes 8.2 5.0 - 12.0 % [facility] 2 Eos 2.0 0.7 - 5.0 % [facility] 2 Basos 0.7 0.1 - 1.2 % [facility] 2 Immature 0.4 0.0 - 0.5 [facility] Granulocytes 2 Neutrophils 4.83 1.56 - 6.13 K/uL [facility] (Absolute) 2 Lymphs 1.47 1.18 - 3.74 K/uL [facility] (Absolute) 2 Monocytes(Absol 0.58 (H) 0.24 - 0.36 K/uL [facility] [place]) 2 Eos (Absolute) 0.14 0.04 - 0.36 K/uL [facility] 2 Baso (Absolute) 0.05 0.01 - 0.08 K/uL [facility] 2 Immature Grans 0.03 0.00 - 0.03 K/uL [facility] (Abs) 2 Specimen Blood Performing Organization Address [facility] Phone Number WonderHowToLUIS MANUEL [facility] * UA MICROSCOPIC (04/12/2018 3:31 PM CDT) WBC >50 (H) 0 - 5 /HPF [facility] RBC 11-21 0 - 4 /HPF [facility] Epithelial Cell <1 /HPF [facility] Bacteria Moderate [facility] Specimen Performing Organization Address [facility] Phone Number WonderHowToLUIS MANUEL [facility] * UA CHEMISTRIES (04/12/2018 3:31 PM CDT) Only the most recent of 2 results within the time period is included. Color Yellow [facility] Clarity Clear [facility] Specific 1.010 1.001 - 1.035 [facility] En[place] pH 6.5 5 - 8 [facility] Protein Negative NEG [facility] Glucose Negative NEG [facility] Ketones Negative NEG [facility] Bilirubin Negative NEG [facility] Nitrate Negative NEG [facility] Urobilinogen,Se 0.2 0.2 - 1.0 EU/dL [facility] mi-Qn Leukocyte 2+ (A) NEG [facility] Occult Blood 2+ (A) NEG [facility] Specimen Urine Performing Organization Address [facility] Phone Number WonderHowToLUIS MANUEL [facility] * URINE CULTURE (04/12/2018 3:20 PM CDT) Only the most recent of 2 results within the time period is included. Spec Urine [facility] Description Order Comments None [facility] Culture 1,000-10,000 CFU/ml BT MICROBIOLOGY Streptococcus species Report Status Final 04/14/2018 [facility] MICRO[facility]OLOG[facility] Specimen Urine - Voided, urine Performing Organization Address [facility] Phone Number WonderHowToLUIS MANUEL [facility] * CT HEAD W/O CONTRAST (04/03/2018 10:36 AM CDT) Specimen Impressions Performed At IMPRESSION: SMS No acute [...] MD, 04/03/2018 11:04 AM Performing Organization Address City/State/Zipcode Phone Number SMS * 12 LEAD EKG (03/22/2018 9:23 AM CDT) 12 LEAD EKG FOR [facility] Test Date:2018-03-22 Pat Name: JOSE MIGUEL Vega partment: Room: 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 Measurements Intervals [place] Rate: 64 P:62 VT: 160 QRS: 42 QRSD: 92 T:74 QT: 427 QTc:441 Interpretive Statements SINUS RHYTHM Electronically Signed On 03-22-18 10:20:40 CDT by Laurence Hughes M.D. Specimen Performing Organization Address City/[facility]/[employer] Phone Number SMS * LIVER PROFILE (03/22/2018 9:22 AM CDT) Protein, Total, 7.1 6.0 - 8.3 g/dL [facility] Serum 1 Albumin 4.5 3.7 - 5.3 g/dL [facility] 1 Bilirubin, 0.4 0.2 - 1.2 mg/dL [facility] Total 1 Alkaline 54 34 - 104 U/L [facility] Phosphatase, S 1 AST (SGOT) 25 13 - 39 U/L [facility] 1 ALT 20 7 - 52 U/L [facility] 1 D Bilirubin 0.1 0.0 - 0.2 mg/dL [facility] 1 Specimen Blood Performing Organization Address [facility] HospitalSMARTProfessional, LLCri Phone Number MISYS [facility] * BASIC METABOLIC PANEL (03/22/2018 9:22 AM CDT) CO2 28 21 - 31 mmol/L [facility] 1 Chloride 103 98 - 107 mmol/L [facility] 1 Potassium 4.4 3.5 - 5.1 mmol/L [facility] 1 Sodium 141 136 - 145 mmol/L [facility] 1 Glucose 94 70 - 110 mg/dL [facility] 1 BUN 16 7 - 25 mg/dL [facility] 1 Creatinine 1.10 0.6 - 1.2 mg/dL [facility] 1 Anion Gap 10 [facility] 1 Calcium 9.7 8.6 - 10.3 mg/dL [facility] 1 GFR, Estimated 49 mL/min/1.73 m2 [facility] 1 eGFR If Africn 60 mL/min/1.73 m2 [facility] Am 1 Specimen Blood Performing Organization Address City/[facility]/[employer] Phone Number MISYS [facility] 1 after 02/14/2018 Insurance Type Payer Benefit Subscriber ID Effective Phone Address Plan / Dates Group MEDICARE MEDICARE xxxxxxxxxxx 2010-P [phone] [id number] [place] [address] Advance Directives Date Inactivated Comments Code Status Date Activated 09/17/2010 6:28 PM Full Code 09/13/2010 2:58 PM
--- NOTE | 2019-02-15 19:18 | NUR ---
pt placed on tele box 27
--- OUTSIDE RECORDS SUMMARY | 2019-02-15 19:19 | XMS REPORT | Continuity of Care Document ---
Author Author [facility] Organization Max[facility] Address Unknown Phone Unavailable Care Team Providers Care Bellman Name Role Phone Maximus Unavailable Unavailable Problems Problem Status Onset Date Classification Date Reported Comments Source RT KNEE/HIP Active 01/04/2019 [facility] Accidental fall 09/06/2018 09/09/2018 [facility] Acute back pain 09/06/2018 09/09/2018 [facility] WEAKNESS Active 09/05/2018 [facility] Pain in right arm 05/21/2018 12/02/2018 [facility] LBP Active 05/16/2018 [facility] PAIN ON RIGHT UPPER ESTREMITY HIP PAIN H Active 05/15/2018 [facility] Spinal stenosis, lumbar region without neurogenic claudication 04/23/2018 11/02/2018 [facility] Pain in right knee 04/11/2018 10/21/2018 [facility] Zach[facility] DX: M54.=LOW BACK PAIN Active 04/03/2018 [facility] Anesthesia of skin 02/28/2018 09/06/2018 [facility] Concussion without loss of consciousness, initial encounter 02/23/2018 09/06/2018 [facility] Concussion 02/17/2018 09/06/2018 [facility] FALL Active 02/17/2018 [facility] NAUSEA Active 02/17/2018 [facility] Discharge Diagnosis: Fall 07/26/2017 07/29/2017 [facility] Discharge Diagnosis: Head injury 07/26/2017 07/29/2017 [facility] STICHES REMOVAL Active 05/19/2016 [facility] HEAD PAIN Active 05/16/2016 [facility] Discharge Diagnosis: Laceration of occipital region of scalp 05/09/2016 05/12/2016 [facility] Discharge Diagnosis: Closed head injury 05/09/2016 05/12/2016 [facility] FALL/ LACERATION TO THE HEAD Active 05/09/2016 [facility] Pain in right hip 12/02/2018 [facility] Unspecified injury of head, initial encounter 12/02/2018 [facility] Presence of right artificial hip joint 12/02/2018 [facility] Osteophyte, vertebrae 11/02/2018 [facility] Muscle weakness 01/09/2019 [facility] Low back pain 01/09/2019 [facility] Repeated falls 01/09/2019 [facility] Ataxia, unspecified 01/09/2019 [facility] Fall Resolved Problem 01/09/2019 [facility], [facility] Sciatic pain Active Problem 01/09/2019 [facility], [facility] Unilateral primary osteoarthritis, right knee 10/21/2018 [facility] Sciatica, left side 09/06/2018 [facility] Essential hypertension 09/06/2018 [facility] Fall on same level from slipping, tripping and stumbling without subsequent striking against object, initial encounter 09/06/2018 [facility] Alcohol dependence, uncomplicated 09/06/2018 [facility] PAIN IN RIGHT ARM Active [facility] PAIN IN RIGHT HIP Active [facility] UNSPECIFIED INJURY OF HEAD, INITIAL ENCO Active [facility] LOW BACK PAIN Active [facility] REPEATED FALLS Active [facility] ATAXIA, UNSPECIFIED Active [facility] MUSCLE WEAKNESS (GENERALIZED) Active [facility] Medications Medication Details Route Status Patient Instructions Ordering Provider Order Date Source Ativan 1 mg, 1 tab, Route: PO, Drug form: TAB, ONCE, Dosing Weight 70.455, kg, Priority: STAT, Start date: 09/05/18 23:39:00 GENERAL L[employer]OGRAPHIC WORKER, Stop date: 09/05/18 23:39:00 CSTNotes: (Same as: Ativan) No Longer Active 09/06/2018 [facility] Omnipaque 180 1,800 mg, 10 mL, Route: INTRATHECAL, Drug form: SOLN, ONCE, Dosing Weight 76.364, kg, Start date: 04/15/18 9:09:00 CDT, Stop date: 04/15/18 9:09:00 CDTNotes: (Same as:Omnipaque 180). WASTE: F/P - Bl ack; E - [facility] Trash [facility] Inactive 04/15/2018 [facility] Omnipaque 180 10 mg/mL, Route: INTRATHECAL, ONCE, Dosing Weight 76.364, kg, Start date: 04/11/18 7:51:00 CDT, Stop date: 04/11/18 7:51:00 CDT No Longer Active 04/11/2018 [facility] tramadol hydrochloride 50 MG Oral Tablet [Ultram] 50 mg, Route: PO, Drug form: TAB, ONCE, Dosing Weight 90.909, kg, Priority: STAT, Start date: 07/26/17 20:23:00 GENER[employer] L[employer]OGRAPHIC WORKER, Stop date: 07/26/17 20:23:00 GENERAL L[employer]OGRAPHIC WORKER Inactive 07/27/2017 [facility] tramadol hydrochloride 50 MG Oral Tablet [Ultram] 50 mg=1 tab, PO, Q6H, X 3 day, # 11 tab, 0 Refill(s) Active 07/27/2017 [facility] Cephalexin 500 MG Oral Capsule [Keflex] 500 mg=1 cap, PO, QID, X 7 day, # 28 cap, 0 Refill(s) Active 05/19/2016 [facility] Acetaminophen 325 MG / Hydrocodone Bitartrate 5 MG Oral Tablet 1 tab, Route: PO, Drug Form: TAB, Dosing Weight 79.545, kg, ONCE, STAT, Start date: 05/09/16 22:23:00 CDT, Stop date: 05/09/16 22:23:00 CDT Inactive 05/10/2016 [facility] Allergies, Adverse Reactions, Alerts Substance Category Reaction Severity Reaction type Status Date Reported Comments Source penicillins Assertion Drug allergy Active [facility] Immunizations Immunization Date Given Site Status Last Updated Comments Source diphtheria/pertussis, acel/tetanus adult 05/10/2016 Right deltoid completed [facility] Results Order Name Results Value Reference Range Date Interpretation Comments Source CHEM PANEL Globulin 4.0 2.7 - 4.2 09/06/2018 [facility] CHEM PANEL B/C Ratio 10 6 - 25 09/06/2018 [facility] CHEM PANEL AGAP 8.8 10.0 - 20.0 09/06/2018 [facility] CHEM PANEL A/G Ratio 1.0 0.7 - 1.6 09/06/2018 [facility] CHEM PANEL eGFR 58 09/06/2018 Result Comment: [...] should be multiplied by the estimated BMI. [facility] CHEM PANEL Chloride Lvl 108 95 - 109 09/06/2018 [facility] CHEM PANEL Total Protein 7.8 6.4 - 8.4 09/06/2018 [facility] CHEM PANEL Calcium Lvl 9.3 8.5 - 10.5 09/06/2018 [facility] CHEM PANEL CO2 28 24 - 32 09/06/2018 [facility] CHEM PANEL Albumin Lvl 3.8 3.5 - 5.0 09/06/2018 [facility] CHEM PANEL AST 37 0 - 37 09/06/2018 [facility] CHEM PANEL ALT 26 0 - 65 09/06/2018 [facility] CHEM PANEL Alk Phos 60 39 - 136 09/06/2018 [facility] CHEM PANEL Bili Total 0.5 0.2 - 1.3 09/06/2018 [facility] CHEM PANEL Glucose Lvl 95 70 - 99 09/06/2018 [facility] CHEM PANEL Potassium Lvl 3.8 3.5 - 5.1 09/06/2018 [facility] CHEM PANEL Sodium Lvl 141 135 - 145 09/06/2018 [facility] CHEM PANEL Creatinine Lvl 0.98 0.50 - 1.40 09/06/2018 [facility] CHEM PANEL BUN 10 7 - 22 09/06/2018 [facility] HEMATOLOGY Eosinophils # 0.2 0.0 - 0.5 09/06/2018 [facility] HEMATOLOGY Basophils # 0.1 0.0 - 0.2 09/06/2018 [facility] HEMATOLOGY Neutrophils # 3.9 1.5 - 8.1 09/06/2018 [facility] HEMATOLOGY Monocytes # 0.6 0.0 - 0.8 09/06/2018 [facility] HEMATOLOGY Lymphocytes # 2.1 1.0 - 5.5 09/06/2018 [facility] HEMATOLOGY Monocytes 8.9 2.0 - 12.0 09/06/2018 [facility] HEMATOLOGY Basophils 0.8 0.0 - 1.0 09/06/2018 [facility] HEMATOLOGY Eosinophils 2.6 0.0 - 4.0 09/06/2018 [facility] Lymphocytes 31.0 20.0 - 40.0 09/06/2018 [facility] HEMATOLOGY Segs 56.7 45.0 - 75.0 09/06/2018 [facility] HEMATOLOGY MCV 89.4 80.0 - 98.0 09/06/2018 [facility] HEMATOLOGY Hct 39.3 36.0 - 48.0 09/06/2018 [facility] Hgb 13.2 12.0 - 16.0 09/06/2018 [facility] RBC 4.40 4.20 - 5.40 09/06/2018 [facility] WBC 6.9 3.7 - 10.4 09/06/2018 [facility] RDW 13.8 11.5 - 14.5 09/06/2018 [facility] Platelet 265 133 - 450 09/06/2018 [facility] MPV 9.0 7.4 - 10.4 09/06/2018 [facility] MCH 30.0 27.0 - 31.0 09/06/2018 [facility] MCHC 33.6 32.0 - 36.0 09/06/2018 [facility] URINE AND STOOL UA WBC 1 0 - 5 02/17/2018 [facility] URINE AND STOOL UA RBC 3 0 - 2 02/17/2018 [facility] URINE AND STOOL UA Leuk Est Negative (02/17/18 10:23 AM) Negative 02/17/2018 [facility] URINE AND STOOL UA Sq Epi Occasional /LPF Few /LPF 02/17/2018 [facility] URINE AND STOOL UA Urobilinogen <=1.0 mg/dL 0.1 - 1.0 02/17/2018 [facility] URINE AND STOOL UA Color Ltyellow 02/17/2018 [facility] URINE AND STOOL UA Glucose Negative mg/dL Negative mg/dL 02/17/2018 [facility] URINE AND STOOL UA Spec Grav 1.008 <=1.030 02/17/2018 [facility] URINE AND STOOL UA Protein Negative mg/dL Negative mg/dL 02/17/2018 [facility] URINE AND STOOL UA pH 6.0 5.0 - 8.0 02/17/2018 [facility] URINE AND STOOL UA Turbidity Clear (02/17/18 10:23 AM) Clear 02/17/2018 [facility] URINE AND STOOL UA Nitrite Negative (02/17/18 10:23 AM) Negative 02/17/2018 [facility] URINE AND STOOL UA Bili Negative *NA* (02/17/18 10:23 AM) Negative 02/17/2018 [facility] URINE AND STOOL UA Ketones Negative mg/dL Negative mg/dL 02/17/2018 [facility] URINE AND STOOL UA Blood Small *ABN* (02/17/18 10:23 AM) Negative 02/17/2018 [facility] TOXICOLOGY Etoh (%) <0.003 02/17/2018 [facility] TOXICOLOGY Ethanol Lvl <3 02/17/2018 [facility] CARDIAC ENZYMES CK MB Index 1.7 0.0 - 2.5 02/17/2018 [facility] CARDIAC ENZYMES Troponin-I <0.02 0.00 - 0.40 02/17/2018 [facility] CARDIAC ENZYMES Total CK 277 12 - 191 02/17/2018 [facility] CARDIAC ENZYMES CK MB 4.7 0.5 - 3.6 02/17/2018 [facility] CHEM PANEL Magnesium Lvl 2.0 1.8 - 2.4 02/17/2018 [facility] CHEM PANEL Lipase Lvl 119 73 - 393 02/17/2018 [facility] CHEM PANEL eGFR 59 02/17/2018 Result Comment: [...] should be multiplied by the estimated BMI. [facility] CHEM PANEL BUN 14 7 - 22 [...] PANEL AGAP 12.0 10.0 - 20.0 02/17/2018 [facility] HEMATOLOGY Neutrophils # 2.8 1.5 - 8.1 02/17/2018 [facility] HEMATOLOGY Basophils 0.8 0.0 - 1.0 02/17/2018 [facility] HEMATOLOGY Monocytes # 0.5 0.0 - 0.8 02/17/2018 [facility] HEMATOLOGY Lymphocytes # 1.4 1.0 - 5.5 02/17/2018 [facility] HEMATOLOGY Eosinophils 3.5 0.0 - 4.0 02/17/2018 [facility] HEMATOLOGY Lymphocytes 28.7 20.0 - 40.0 02/17/2018 [facility] HEMATOLOGY Segs 57.5 45.0 - 75.0 02/17/2018 [facility] HEMATOLOGY Monocytes 9.5 2.0 - 12.0 02/17/2018 [facility] HEMATOLOGY Eosinophils # 0.2 0.0 - 0.5 02/17/2018 [facility] HEMATOLOGY INR 0.91 0.85 - 1.17 02/17/2018 [facility] PTT 28.6 22.9 - 35.8 02/17/2018 [facility] PT 12.3 12.0 - 14.7 02/17/2018 [facility] RDW 14.1 11.5 - 14.5 02/17/2018 [facility] WBC 4.9 3.7 - 10.4 02/17/2018 [facility] MCHC 34.2 32.0 - 36.0 02/17/2018 [facility] MCV 90.0 80.0 - 98.0 02/17/2018 [facility] MCH 30.7 27.0 - 31.0 02/17/2018 [facility] Hgb 13.4 12.0 - 16.0 02/17/2018 [facility] Hct 39.1 36.0 - 48.0 02/17/2018 [facility] Platelet 201 133 - 450 02/17/2018 [facility] MPV 9.4 7.4 - 10.4 02/17/2018 [facility] RBC 4.35 4.20 - 5.40 02/17/2018 [facility] Pathology Reports No Data Provided for This [...] on the left at C6-C7. 01/03/2019 [facility] Pelvis wo IV contrast CT CT PELVIS [...] narrowing of both knees. 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 SL: MALCOLM 09/05/2018 [facility] Spine lumbar 2 or 3 views DX Study: Spine lumbar 2 or 3 views DX 09/05/2018 5:29 PM GENERAL LITHOGRAPHIC WORKER Patient Name: JOSE MIGUEL BLAS MR: [id number] : 1950; Age: 68 years y/o Female [...] CT may be indicated. SL: MALCOLM 09/05/2018 [facility] Brain wo contrast MRI EXAM: Brain wo [...] acute intracranial abnormality. Partial empty sella. 05/15/2018 [facility] Humerus 2 views DX EXAM: XR HUMERUS [...] Normal exam of the right humerus. 05/15/2018 [facility] Hip 2/3 views uni w pelvis DX [...] appearance of right total hip arthroplasty. 05/15/2018 [facility] Spine lumbar myelogram CT UNENHANCED CT LUMBAR [...] the aorta. IMPRESSION: 1. There are multilevel [id number] lateral recess and neural foraminal stenoses discussed on a level by level basis in the findings. There is no significant spinal canal stenosis at any lumbar level. SL: JBBRENDEN 04/15/2018 [facility] Spine lumbar myelogram DX Patient Name: JOSE MIGUEL BLAS : 1950; Age: 67 years y/o Female MR: [id number] Study: Spine lumbar myelogram DX 04/15/2018 9:08 AM CDT PROCEDURE: Fluoroscopic-guided lumbar myelogram CLINICAL INFORMATION: - M54.5 Low back pain COMPARISON: None. CONSENT: The procedure, risks, benefits and alternatives were discussed and written informed consent was obtained. A 'time out' was performed per protocol prior to the procedure. TECHNIQUE: raw scales operator: Dr. Cardenas Fluoroscopy time: 26 seconds [...] imaging. IMPRESSION: Successful fluoroscopic-guided lumbar myelogram. SL: [id number] 04/15/2018 [facility] Knee 3 views DX EXAM: Knee 3 [...] acute cardiopulmonary abnormality identified. SL: MRICHTKATHERINE 02/17/2018 [facility] Brain wo contrast CT I have reviewed [...] atrophy and chronic microvascular sequela. ----- : [id number] 02/17/2018 [facility] Hip 2/3 views uni w pelvis DX Right hip 2views: Right total hip arthroplasty is seen in satisfactory position. There is no fracture or dislocation or evidence of loosening. There are no other significant osseous or soft tissue abnormalities. IMPRESSION: No acute radiographic abnormality of the right hip. [id number] 07/26/2017 [facility] Brain wo contrast CT Clinical Indication: Fall [...] right frontoparietal calvarium near the vertex. SL: [id number] 07/26/2017 [facility] Spine cervical wo contrast CT (ER) Clinical [...] of the cervical spine. SL: OLIVA 07/26/2017 [facility] Brain wo contrast CT Patient Name: JOSE MIGUEL BLAS : 1950; Age: 65 years y/o Female MR: [id number] Study: Brain wo contrast CT 05/09/2016 7:28 [...] Otherwise unremarkable head CT without contrast. SL: [id number] 05/09/2016 [facility] Spine cervical wo contrast CT CT CERVICAL [...] acute findings in the cervical spine. 05/09/2016 [facility] Consultation Notes No Data Provided for This Section Discharge Summaries No Data Provided for This Section History and Physicals No Data Provided for This Section Vital Signs Vital Sign Value Date Comments Source Temperature Oral (F) 98.2 F 09/06/2018 [facility] Systolic (mm Hg) 148 09/06/2018 [facility] Diastolic (mm Hg) 68 09/06/2018 [facility] Respitory Rate 18 09/06/2018 [facility] Heart Rate 68 09/06/2018 [facility] Respitory Rate 18 09/06/2018 [facility] Temperature Oral (F) 98.0 F 09/06/2018 [facility] Heart Rate 74 09/06/2018 [facility] Systolic (mm Hg) 152 09/06/2018 [facility] Diastolic (mm Hg) 67 09/06/2018 [facility] [...] 02/17/2018 [facility] Diastolic (mm Hg) 69 02/17/2018 [facility] Temperature Oral (F) 97.7 F 02/17/2018 [facility] Respitory Rate 18 02/17/2018 [facility] Respitory Rate 17 02/17/2018 [facility] Systolic (mm Hg) 136 02/17/2018 [facility] Diastolic (mm Hg) 69 02/17/2018 [facility] Respitory Rate 19 02/17/2018 [facility] Temperature Oral (F) 98.6 F 02/17/2018 [facility] Heart Rate 70 02/17/2018 [facility] Respitory Rate 18 02/17/2018 [facility] Systolic (mm Hg) 113 02/17/2018 [facility] Diastolic (mm Hg) 60 02/17/2018 [facility] BMI Calculated 26 02/17/2018 [facility] Height 180.34 cm 02/17/2018 [facility] Weight 84.545 [...] 05/10/2016 [facility] Diastolic (mm Hg) 64 05/10/2016 [facility] Temperature Oral (F) 98.1 F 05/10/2016 [facility] [...] Provider ADM Date DC Date Status Source [facility] Emergency [id number] Angelia Nguyen 05/09/2016 05/10/2016 [facility] Emergency [id number] Elian Clayton 05/16/2016 05/17/2016 [facility] Emergency [id number] Jd Cathleen 05/19/2016 05/19/2016 [facility] Emergency [id number] Cassie Mahoney 07/26/2017 07/27/2017 [facility] Emergency [id number] Anthony Cardenas 02/17/2018 02/17/2018 [facility] Emergency [id number] William Hillman 02/17/2018 02/18/2018 [facility] Outpatient Imaging [facility] [id number] Shay Garzon 04/03/2018 04/04/2018 [facility]patient [facility] [id number] Shay Garzon 04/03/2018 04/04/2018 [facility] Outpatient [id number] Shay Garzon 04/11/2018 04/11/2018 [facility] Outpatient [id number] Shay Garzon 04/15/2018 04/16/2018 [facility] Outpatient [id number] Shay Garzon 05/15/2018 05/16/2018 [facility] Patients [id number] Shay Garzon 05/23/2018 06/22/2018 [facility] Emergency [id number] Cat 09/05/2018 09/06/2018 [facility] Outpatient Imaging - [facility] [id number] Shay Garzon 01/03/2019 01/04/2019 [facility] Procedures Procedure Code Date Perfomer Comments Source Hip arthroplasty<sup>1</sup> [id number] both hips [facility] Hip arthroplasty<sup>1</sup> [id number] both hips [facility] Hip arthroplasty<sup>1</sup> [id number] both hips [facility] Hip arthroplasty<sup>1</sup> [id number] both hips [facility] Hip arthroplasty<sup>1</sup> [id number] both hips [facility] Hip arthroplasty<sup>1</sup> [id number] both hips [facility] Assessment and Plan No Data Provided for [...] Cessation Counseling No entered on: 09/05/18 09/06/2018 [facility] Social History TypeResponse Smoking Status Former smoker; Type: Cigarettes; Previous treatment: None; Ready to change: No; Concerns about tobacco use in household: No; Exposure to Tobacco Smoke None; Cigarette Smoking Last 365 Days No; Reg Smoking Cessation Counseling No entered on: 09/05/18 09/06/2018 [facility] Social History TypeResponse Smoking Status Former smoker; [...] Cessation Counseling No entered on: 09/05/18 09/06/2018 [facility] Social History TypeResponse Smoking Status [...]
[2019-02-15 19:45] VITALS: BP 156/67
--- NOTE | 2019-02-15 19:46 | Diagnostic Imaging Report ---
EXAMINATION: CHEST SINGLE (NOT PORTABLE) INDICATION: Fall COMPARISON: None FINDINGS: AP view TUBES and LINES: None. LUNGS: Lungs are well inflated. Lungs are clear. There is no evidence of pneumonia or pulmonary edema. PLEURA: No pleural effusion or pneumothorax. HEART AND MEDIASTINUM: The cardiomediastinal silhouette is unremarkable. BONES AND SOFT TISSUES: No acute osseous lesion. Soft tissues are unremarkable. UPPER ABDOMEN: No free air under the diaphragm. IMPRESSION: No acute thoracic abnormality. Signed by: Scottie Wolff DO on 02/15/2019 7:43 PM
--- NOTE | 2019-02-15 19:49 | Diagnostic Imaging Report ---
PELVIS AP 1-2 VIEWS HISTORY: Pain. COMPARISON: Lumbar spine CT 02/15/2019. FINDINGS: Bones: No acute displaced fracture. Osseous alignment is within normal limits. Joints: Bilateral total hip arthroplasties, no acute hardware complications. Degenerative changes in the lower lumbar spine. Soft tissues: The soft tissues appear unremarkable. IMPRESSION: No acute radiographic abnormality. Intact bilateral total hip arthroplasty hardware. Degenerative changes in the lower lumbar spine. Signed by: Scottie Wolff DO on 02/15/2019 7:46 PM
[2019-02-15 20:02] VITALS: BP 156/67
[2019-02-15] MEDS: BUSPIRONE HCL 10 MG TABLET PO SCH (20:53)
[2019-02-15] MEDS: ZOLPIDEM TARTRATE 10 MG TAB PO PRN (20:53)
[2019-02-15] MEDS: HYDROCODONE/APAP 7.5MG-325MG 1 EA TAB PO PRN (21:40)
[2019-02-16] VITALS (7 sets, daily range): BP systolic 104–149; BP diastolic 57–67
--- NOTE | 2019-02-16 01:37 | NUR ---
BLOOD DRAWN FOR CARDIAC MARKER AND TAKEN TO LAB.
[2019-02-16] MEDS ORDERED: HYDRALAZINE HCL 20 MG/ML VIAL IV PRN (04:15)
[2019-02-16] MEDS ORDERED: ACETAMINOPHEN 325 MG TAB PO PRN (04:15)
[2019-02-16] MEDS: HYDROCODONE/APAP 7.5MG-325MG 1 EA TAB PO PRN ×4 (04:20→16:40)
[2019-02-16 05:19] LABS: CREATINE KINASE 499 IU/L (29-168)
[2019-02-16 05:28] LABS: BASOPHILS # (AUTO) 0.1 (0.0-0.1); BASOPHILS % 1.1 % (0.0-1.0); EOSINOPHILS # (AUTO) 0.4 (0.0-0.4); EOSINOPHILS % 7.8 % (0.0-6.0); HEMATOCRIT 33.5 % (34.2-44.1); HEMOGLOBIN 11.1 g/dL (12.0-16.0); LYMPHOCYTES # (AUTO) 1.7 (1.0-3.2); LYMPHOCYTES % 37.3 % (18.0-39.1); MEAN CORPUSCULAR HEMOGLOBIN 30.5 pg (28-32); MEAN CORPUSCULAR HGB CONC 33.1 g/dL (31-35); MONOCYTES # (AUTO) 0.5 (0.2-0.8); MONOCYTES % 10.5 % (4.4-11.3); NEUTROPHILS % 42.9 % (38.7-80.0); PLATELET COUNT 210 x10e3/uL (140-360); RED BLOOD COUNT 3.64 x10e6/uL (3.6-5.1); RED CELL DISTRIBUTION WIDTH 13.2 % (11.7-14.4)
[2019-02-16 05:49] LABS: ALANINE AMINOTRANSFERASE 19 IU/L (0-55); ALBUMIN 3.1 g/dL (3.5-5.0); ALBUMIN/GLOBULIN RATIO 1.1 (0.8-2.0); ALKALINE PHOSPHATASE 47 IU/L (40-150); ANION GAP 11.9 mmol/L (8-16); BLOOD UREA NITROGEN 14 mg/dL (7-26); BUN/CREATININE RATIO 18 (6-25); CALCIUM 8.7 mg/dL (8.4-10.2); CARBON DIOXIDE 28 mmol/L (22-29); CHLORIDE 105 mmol/L (98-107); CHOL/HDL RATIO 4.2 (3.0-3.6); CHOLESTEROL 224 MD/DL (0-199); CREATININE, SERUM 0.79 mg/dL (0.57-1.11); EST GLOMERULAR FILTRATION RATE > 60 ML/MIN (60-); GLUCOSE 89 mg/dL (74-118); HDL CHOLESTEROL 53 MG/DL (40-60); LDL CHOLESTEROL 139 MG/DL (60-130); POTASSIUM 3.9 mmol/L (3.5-5.1); SODIUM 141 mmol/L (136-145); TRIGLYCERIDES 160 MG/DL (0-149)
--- NOTE | 2019-02-16 06:57 | NUR ---
REPORT GIVEN TO ONCOMING NURSE,WALKING ROUNDS MADE.PT RESTING IN BED WITH NO S/S OF DISTRESS.
[2019-02-16] MEDS: GABAPENTIN 300 MG CAP PO SCH ×2 (08:40→16:40)
[2019-02-16] MEDS: FUROSEMIDE 40 MG TAB PO SCH (08:40)
[2019-02-16] MEDS: DOCUSATE SODIUM 100 MG CAP PO SCH ×2 (08:40→16:40)
[2019-02-16] MEDS: FAMOTIDINE 20 MG TAB PO SCH ×2 (08:40→16:40)
[2019-02-16] MEDS: BUSPIRONE HCL 10 MG TABLET PO SCH ×3 (08:40→20:25)
[2019-02-16] MEDS: ASPIRIN 81 MG CHEW TAB PO SCH (08:40)
[2019-02-16] MEDS: LISINOPRIL 10 MG TAB PO SCH (08:40)
[2019-02-16] MEDS: CITALOPRAM HYDROBROMIDE 20 MG TAB PO SCH (08:40)
[2019-02-16] MEDS ORDERED: NON-FORMULARY MEDICATION (Citalopram Hydrobromide (Celexa) 40 MG) PO SCH (09:00)
--- NOTE | 2019-02-16 09:09 | NUR ---
per INSURANCE APPLICATION INVESTIGATOR okay to remove telemetry for MRI procedure and will place patient back on monitor upon return
--- NOTE | 2019-02-16 09:28 | NUR ---
patient alert and oriented, aware of MRI. Leaving unit via wheelchair
--- NOTE | 2019-02-16 10:25 | NUR ---
patient returned to unit via wheelchair, alert and oriented. Addendum: 02/16/19 at 1037 by Roxy Gamez RN back to bed, telemetry back in place. call light within reach and bed in lowest position.
--- NOTE | 2019-02-16 10:33 | Diagnostic Imaging Report ---
MRI BRAIN WO HISTORY: Fall, headache COMPARISON: Head CT 02/15/2019 TECHNIQUE: Sagittal T2, axial T2, axial T1, axial T2/FLAIR, axial gradient echo (or susceptibility weighted), coronal T2/FLAIR, and axial diffusion weighted MR images of the brain were obtained without contrast. DISCUSSION: Scalp/bone marrow: Parieto-occipital scalp hematoma is present. Otherwise, unremarkable. Brain sulci: Prominent. Ventricles: Compensatory dilatation. Extra-axial spaces: No masses or fluid collections. Parenchyma: Scattered T2/FLAIR hyperintense foci throughout the supratentorial white matter are likely chronic microvascular ischemic changes. Otherwise, no mass, hemorrhage, or acute vascular insults. Vessels: Normal flow voids in major arteries and veins. Sellar/Suprasellar region: No abnormalities. Craniocervical junction: No abnormalities. Incidental findings: Trace T2 hyperintense left mastoid effusion. Mild bilateral ethmoid air cell mucosal thickening. IMPRESSION: 1. No acute intracranial abnormalities. 2. Mild supratentorial chronic microvascular ischemic change. 3. Mild generalized cerebral volume loss. Signed by: Dr. Ted Sheehan M.D. on 02/16/2019 10:30 AM
[2019-02-16 11:32] LABS: CREATINE KINASE MB 10.3 ng/mL (0-5.0)
[2019-02-16] MEDS: KETOROLAC TROMETHAMINE 30 MG/ML VIAL IV PRN (17:18)
--- NOTE | 2019-02-16 18:55 | NUR ---
walking rounds made with lieutenant shift supervisor nurse, patient aware of change and in no distress. call yañez within reach and bed in lowest position
[2019-02-16] MEDS ORDERED: ATORVASTATIN 20 MG TAB PO SCH (21:00)
[2019-02-16] MEDS ORDERED: DIAZEPAM 5 MG TAB PO SCH (21:00)
[2019-02-16] MEDS: ZOLPIDEM TARTRATE 10 MG TAB PO PRN (21:51)
[2019-02-17 00:10] VITALS: BP 125/56
[2019-02-17 03:31] LABS: BASOPHILS # (AUTO) 0.1 (0.0-0.1); EOSINOPHILS # (AUTO) 0.4 (0.0-0.4); EOSINOPHILS % 8.1 % (0.0-6.0); HEMATOCRIT 34.8 % (34.2-44.1); HEMOGLOBIN 11.7 g/dL (12.0-16.0); LYMPHOCYTES # (AUTO) 1.5 (1.0-3.2); LYMPHOCYTES % 30.4 % (18.0-39.1); MEAN CORPUSCULAR HEMOGLOBIN 30.9 pg (28-32); MEAN CORPUSCULAR HGB CONC 33.6 g/dL (31-35); MEAN CORPUSCULAR VOLUME 91.8 fL (81-99); MONOCYTES # (AUTO) 0.5 (0.2-0.8); MONOCYTES % 9.3 % (4.4-11.3); NEUTROPHILS # (AUTO) 2.6 (2.1-6.9); NEUTROPHILS % 50.8 % (38.7-80.0); PLATELET COUNT 228 x10e3/uL (140-360); RED BLOOD COUNT 3.79 x10e6/uL (3.6-5.1); RED CELL DISTRIBUTION WIDTH 13.3 % (11.7-14.4)
[2019-02-17 03:47] LABS: MAGNESIUM 1.9 MG/DL (1.3-2.1); PHOSPHORUS 4.2 MG/DL (2.3-4.7)
[2019-02-17 03:49] LABS: ANION GAP 11.9 mmol/L (8-16); BLOOD UREA NITROGEN 16 mg/dL (7-26); BUN/CREATININE RATIO 19 (6-25); CALCIUM 8.7 mg/dL (8.4-10.2); CARBON DIOXIDE 29 mmol/L (22-29); CHLORIDE 103 mmol/L (98-107); CREATINE KINASE 331 IU/L (29-168); CREATININE, SERUM 0.84 mg/dL (0.57-1.11); EST GLOMERULAR FILTRATION RATE > 60 ML/MIN (60-); GLUCOSE 98 mg/dL (74-118); POTASSIUM 3.9 mmol/L (3.5-5.1); SODIUM 140 mmol/L (136-145)
[2019-02-17 04:00] VITALS: BP_SYST 125; BP_SYST 132; BP_DIAS 56; BP_DIAS 65
[2019-02-17 04:05] LABS: B-TYPE NATRIURETIC PEPTIDE2 71.1 pg/mL (0-100)
[2019-02-17 04:11] LABS: FREE T4 (FREE THYROXINE) 0.79 ng/dL (0.8-1.8); THYROID STIMULATING HORMONE 2.223 uIU/mL (0.350-4.940)
[2019-02-17] MEDS ORDERED: LIPITOR40 MG PO (04:54)
[2019-02-17] MEDS ORDERED: ASPIRIN81 MG PO (04:54)
[2019-02-17] MEDS ORDERED: IBUPROFEN600 MG PO (04:55)
[2019-02-17] MEDS ORDERED: VALIUM5 MG PO (04:55)
--- NOTE | 2019-02-17 04:55 | NUR ---
CALL RECEIVED FROM BRY IN RADIOLOGY REGARDING STAT MRA,BRY STATED THAT THE MRI STAFF IS NOT AVAILABLE AT THIS TIME AND THEY HAVE TO BE CALLED IN IF THE MRA NEEDS TO BE DONE STAT.SPOKE WITH [place] [facility] REGARDING THE ORDER FOR STAT MRA,VANDANA STATED THAT MRA CAN BE DONE AFTER THE MRI STAFF GETS HERE THIS MORNING,CALLED BRY BACK AND UPDATED.
[2019-02-17] MEDS: HYDROCODONE/APAP 7.5MG-325MG 1 EA TAB PO PRN ×2 (05:14→15:19)
--- NOTE | 2019-02-17 07:13 | NUR ---
BEDSIDE SHIFT REPORT GIVEN TO ONCOMING NURSE,PT RESTING IN BED WITH NO S/S OF DISTRESS.
--- NOTE | 2019-02-17 07:38 | NUR ---
ASSISTED PATIENT TO BEDSIDE TOILET. PATIENT URINATED, ASSISTED PATIENT BACK TO BED. RE-ACTIVATED BED ALARM.
[2019-02-17 07:46] VITALS: BP 141/71
[2019-02-17] MEDS: KETOROLAC TROMETHAMINE 30 MG/ML VIAL IV PRN (08:02)
[2019-02-17] MEDS: ASPIRIN 81 MG CHEW TAB PO SCH (09:04)
[2019-02-17] MEDS: FAMOTIDINE 20 MG TAB PO SCH ×2 (09:04→17:19)
[2019-02-17] MEDS: CITALOPRAM HYDROBROMIDE 20 MG TAB PO SCH (09:05)
[2019-02-17] MEDS: BUSPIRONE HCL 10 MG TABLET PO SCH ×2 (09:05→15:16)
[2019-02-17] MEDS: FUROSEMIDE 40 MG TAB PO SCH (09:08)
[2019-02-17] MEDS: DOCUSATE SODIUM 100 MG CAP PO SCH ×2 (09:08→17:19)
[2019-02-17] MEDS: GABAPENTIN 300 MG CAP PO SCH ×2 (09:09→17:19)
[2019-02-17] MEDS: LISINOPRIL 10 MG TAB PO SCH (09:09)
[2019-02-17 09:20] VITALS: BP 141/71
[2019-02-17 11:34] VITALS: BP 147/68
[2019-02-17] MEDS ORDERED: ONDANSETRON HCL 4 MG ORAL DISINTEGRATING TAB PO PRN (11:45)
[2019-02-17] MEDS ORDERED: SODIUM CHLORIDE 0.9% 100 ML 100 ML ONE (12:41)
[2019-02-17] MEDS ORDERED: GADOBENATE DIMEGLUMINE 1 ML IV ONE (12:41)
[2019-02-17 15:29] VITALS: BP 156/72
--- NOTE | 2019-02-17 15:35 | Diagnostic Imaging Report ---
Exam: Neck MRI without and with IV contrast History: Dizziness, fall, right carotid narrowing. Comparison studies: None Technique: Precontrast axial 2-D ddil-ri-lyjxvs and postcontrast coronal spbh-ui-rnxkwl with 3-D MIP reformats. Contrast: 15 cc MultiHance. Findings: Please note, if present, stenosis at the carotid bulbs is measured utilizing NASCET criteria which compares the narrowest ICA diameter at the carotid bulb to the diameter of the normal distal cervical ICA. Aortic arch: Incompletely evaluated on the postcontrast sequence. Pulsation artifact somewhat limits evaluation on the noncontrast sequence. Normal branching normal branching pattern of the great vessels. Common carotid arteries: Patent, no flow signal abnormalities. Carotid bulbs: Patent, no (0%) stenosis by NASCET criteria. Internal carotid arteries: Patent, no flow signal under malleus. Vertebral arteries: Patent, no flow signal abnormalities on the left. Severe stenosis with near complete loss of flow signal at the origin of the right vertebral artery. The proximal right V1 segment is moderate to severely narrowed. Moderate focal short segmental stenosis in the middle right V2 segment. IMPRESSION: 1. Patent carotid arteries without flow limiting stenosis. 2. No (0%) stenosis at the carotid bulbs bilaterally. 3. 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 4. Patent left vertebral artery without flow-limiting stenosis. Signed by: Dr. Barry Brown M.D. on 02/17/2019 3:32 PM
--- NOTE | 2019-02-17 17:50 | NUR ---
DISCUSSED DISCHARGE ORDER WITH THE PATIENT, PATIENT STATED THAT SHE DOES NOT WANT TO LEAVE UNTIL SHE DISCUSSED HER TEST RESULTS WITH THE PHYSICIAN, CONTACTED [employer], SHE STATED TO DISCHARGE THE PATIENT, HER TEST RESULTS ARE NORMAL/NEGATIVE, THERE ARE NOT AND FINDINGS WE NEED TO DISCUSS, SEND HER HOME, INFORMED THE PATIENT OF OF WHAT THE [employer] STATED, PATIENT STATED THAT SHE STILL WANTS TO STAY TO DISCUSS HER RESULTS, INFORMED THE CHARGE NURSE, DYLAN B[employer] AND [employer]CHING PROCESSOR, BRY BRAVO, DYLAN DISCUSSED WITH THE PATIENT HER NEED TO LEAVE AND THAT THERE IS NOT A SUBSTANTIAL REASON FOR HER TO STAY, PATIENT STATED THAT SHE WILL GO TO ANOTHER HOSPITAL, DYLAN TOLD THE PATIENT THAT IS HER RIGHT.
--- NOTE | 2019-02-17 19:46 | Discharge Summary ---
ADMISSION DIAGNOSES: Frequent falls with head trauma on the last fall, hypertension, neuropathy, anxiety, bipolar depression, hyperlipidemia, rhabdomyolysis. DISCHARGE DIAGNOSES: Frequent falls with head trauma on the last fall, hypertension, neuropathy, anxiety, bipolar depression, hyperlipidemia, rhabdomyolysis, rule out cerebrovascular accident. HISTORY: The patient has a history of hypertension, neuropathy, anxiety, bipolar depression, sciatica. SURGICAL HISTORY: Bilateral total hip replacement. FAMILY HISTORY: The patient's niece has diabetes. The patient's sister and brother have cancer. The patient's grandpa had a stroke. SOCIAL HISTORY: The patient admits to occasional alcohol use. HOSPITAL COURSE: A 68-year-old female with history of frequent falls admit, status post fall with injury to the back of her head. She was in the kitchen and felt her legs giving out, so she was turning to sit on the chair on her walker, but she fell and hit the back of her head on the tile. She denies loss of consciousness and dizziness. She has an ortho MD, who says her falls are due to loss of balance and weakness. She is following up with [facility] rehab two times a week outpatient. She has a neuro appointment at the end of the month as well. On admission, CT of the L-spine showed no acute abnormalities. CT of the C-spine was negative. CT of the brain was negative. X-ray of the pelvis was negative. Chest x-ray was negative. MRI of the brain was negative. CK on admission was 619, the patient was started on IV fluids, they trended down to 331 at time of discharge. The patient's echo showed an EF of 50% to 55% with calcific AVM . The carotid Doppler showed evidence of possible significant stenosis on the right. The patient had an MRA of the neck, which showed patent carotid arteries without flow-limiting stenosis, 0% stenosis at the carotid bulbs bilaterally. Severe stenosis at the origin of the right vertebral artery with tmldsyln-qo-[id number] narrowing in the proximal V1 and moderate focal short segmental stenosis in the right V2. After discussing the case with Dr. Soares, the patient will discharge home and follow up with outpatient rehab as already scheduled. She was given a new prescription for Valium at bedtime, ibuprofen p.r.n., Lipitor, and she is already taking aspirin. The patient will discharge home and follow up with primary care in 1 to 2 weeks. Vital signs are stable. The patient is afebrile. The patient understands discharge instructions and agrees to plan. Dictated by Gisell Gunn NP MD ALE Gaffney/ANA MARIA /[id number]
== END 2019-02-17 18:25 | disposition home or self-care (01) ==
LOC: ER 17:17 → ERHOLD 19:12 → IMCU 19:41
PROVIDERS: ADMIT Internal Medicine; ATTEND Internal Medicine
DX: S00.03XA Contusion of scalp, initial encounter (principal); M62.82 Rhabdomyolysis; M54.5 Low back pain; W01.198A Fall on same level from slipping, tripping and stumbling with subsequent striking against other object, initial encounter; Y93.89 Activity, other specified; Y92.010 Kitchen of single-family (private) house as the place of occurrence of the external cause; I11.0 Hypertensive heart disease with heart failure; I50.9 Heart failure, unspecified; G62.9 Polyneuropathy, unspecified; F41.9 Anxiety disorder, unspecified; F31.9 Bipolar disorder, unspecified; Z96.643 Presence of artificial hip joint, bilateral; Z88.0 Allergy status to penicillin; Z91.81 History of falling; Z83.3 Family history of diabetes mellitus; Z80.9 Family history of malignant neoplasm, unspecified; Z82.3 Family history of stroke; E78.5 Hyperlipidemia, unspecified
CPT/HCPCS: 36415 ×3; 70450; 70549; 70551; 71045; 72125; 72131; 72170; 80048; 80053 ×2; 80061; 81001; 82550 ×3; 82553 ×3; 83036; 83735; 83880 ×2; 84100; 84439; 84443; 84484 ×3; 85025 ×3; 85610; 85730; 87086; 93005; 93306; 93880; 97116; 97162; 99284; G0378 ×3; J1885 ×2; J7030

== ENCOUNTER 2019-03-06 10:03 | Emergency (ER) | payer MEDICARE ==
[~2019-03-06] VITALS: Ht 180.3 cm; Wt 77.1 kg
[~2019-03-06 10:03] MED LIST changes: +BUSPIRONE HCL10 MG PO; +CYCLOBENZAPRINE10 MG PO; +FERROUS SULFAT325 MG PO; +IBUPROFEN600 MG PO; +LIPITOR40 MG PO; +LORAZEPAM0.5 MG PO; +Potassium PO; +SENNOSIDES8.6 MG PO; +TYLENOL WITH C1 EACH PO; +VALIUM5 MG PO; +VITAMIN B-121000 MCG PO
--- OUTSIDE RECORDS SUMMARY | 2019-03-06 10:07 | XMS REPORT | Summary of Care ---
Author Author KASANDRA Gracia, CONTRERAS Organization Unknown Address Unknown Phone Unavailable Care Team Providers Care Program Director [employer] Name Role Phone KASANDRA MEADE, CONTRERAS Unavailable Unavailable PAO MEADE, SHRUTHI Unavailable Unavailable Unavailable Unavailable Functional Status Name [...] Status: Active Weakness (780.79, R53.1) Status: Active Idiopathic polyneuropathy (356.9, G60.9) Status: Active Bilateral lumbar radiculopathy (724.4, M54.16) Status: Active Medications Name Dates Details Medications not documented Allergies and Adverse Reactions Name Dates Details Allergy history not documented Status: Procedures Procedure Dates Details [UTP] EMG Date: 27-Feb-2019 Immunization Name Dates Details Immunizations not documented Social History Name Dates Details Unknown if ever smoked Vital Signs Date Test Result Details No Known Vitals to report Results Date Description Value Details Results not documented Plan of Care Name Dates Details Planned Observations Planned Goals not documented Planned Encounters Neurology Referral Appointment; SHRUTHI CEDENO M.D. On: 17-Mar-2019 15:00 Appointment; SHRUTHI CEDENO M.D. On: 17-Mar-2019 15:00 Instructions Name Dates Details Instructions not documented [...]
[2019-03-06] MEDS ORDERED: LIDOCAINE 5% PATCH TP ONE (11:15)
--- NOTE | 2019-03-06 11:57 | Diagnostic Imaging Report ---
CT LUMBAR SPINE WO HISTORY: Low back pain, fall COMPARISON: Lumbar spine CT 02/15/2019 TECHNIQUE: Axial CT images of the lumbar spine were obtained without contrast. Coronal and sagittal reconstructions obtained from the axial data. One or more of the following dose reduction techniques were used: Automated exposure control, adjustment of the mA and/or kV according to patient size, and/or utilization of iterative reconstruction technique. DISCUSSION: Mild bone demineralization limits evaluation. There are 5 nonrib-bearing lumbar vertebral bodies. Lumbar lordosis is preserved. There is no significant subluxation. Mild lumbar levoscoliosis is centered at L3. A new, mild compression fracture along the L3 inferior endplate, eccentric to the right, is either acute or subacute. There is no involvement of the posterior cortex or retropulsion. No other definite acute fracture or compression deformity is seen. Mild, chronic-appearing deformity of the left L2 and left L3 transverse processes are likely from remote fractures. No gross spinal canal mass is seen. The paravertebral and paraspinal soft tissues are unremarkable. Degenerative changes: Mild to moderate multilevel spondylosis is most prominent at L4-L5. L1-L2: No gross canal or foraminal stenosis. L2-L3: No gross canal or foraminal stenosis. L3-L4: Mild bilateral foraminal stenoses due to disc bulge and facet arthrosis. Possible mild canal stenosis due to disc bulge and ligamentum flavum thickening. L4-L5: Mild canal stenosis due to disc bulge and ligamentum flavum thickening. Moderate right and mild left foraminal stenoses due to posterior disc osteophyte complexes and facet arthrosis. L5-S1: Mild left foraminal stenosis due to disc bulge and facet arthrosis. No gross canal or right foraminal stenosis. Left hip arthroplasty is partially visualized. There are mild degenerative changes in the bilateral sacroiliac joints. IMPRESSION: 1. New, acute or subacute mild compression fracture of the L3 inferior endplate without retropulsion (AO spine classification A1). 2. No other acute osseous abnormalities. 3. Degenerative changes as described above. Signed by: Dr. Ted Sheehan M.D. on 03/06/2019 11:54 AM
[2019-03-06] MEDS ORDERED: ORPHENADRINE CITRATE 30 MG/ML VIAL IM ONE (12:00)
[2019-03-06] MEDS ORDERED: TRAMADOL HCL 50 MG TAB PO ONE (12:00)
== END 2019-03-06 13:25 | disposition home or self-care (01) ==
LOC: ER 10:03
DX: S32.030A Wedge compression fracture of third lumbar vertebra, initial encounter for closed fracture (principal); W18.2XXA Fall in (into) shower or empty bathtub, initial encounter; Y93.E1 Activity, personal bathing and showering; Y92.002 Bathroom of unspecified non-institutional (private) residence as the place of occurrence of the external cause; I10 Essential (primary) hypertension; J44.9 Chronic obstructive pulmonary disease, unspecified; M19.90 Unspecified osteoarthritis, unspecified site; F41.9 Anxiety disorder, unspecified; G62.9 Polyneuropathy, unspecified; Z79.82 Long term (current) use of aspirin; Z79.1 Long term (current) use of non-steroidal anti-inflammatories (NSAID); Z88.0 Allergy status to penicillin
CPT/HCPCS: 72131; 99284; J2360

== ENCOUNTER 2019-03-31 08:53 | Emergency (ER) | payer MEDICARE ==
[~2019-03-31] VITALS: Ht 180.3 cm; Wt 77.1 kg
--- OUTSIDE RECORDS SUMMARY | 2019-03-31 08:57 | XMS REPORT | Continuity of Care Document ---
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 by Coagulation assay 0.86 02/15/2019 [facility] Activated partial thromboplastin time (aPTT) in platelet poor plasma bycoagulation assay 27.8 23.8 - 35.5 02/15/2019 [facility] Urine color determination YELLOW YELLOW 02/15/2019 [facility] Urine clarity CLEAR CLEAR 02/15/2019 [facility] Specific gravity of Urine by Test strip <=1.005 1.010 - 1.025 02/15/2019 [facility] Urine pH measurement by automated test strip 6 5 - 7 02/15/2019 [facility] Urine leukocyte esterase detection by automated test strip NEGATIVE NEGATIVE 02/15/2019 [facility] Urine nitrite detection by automated test strip NEGATIVE NEGATIVE 02/15/2019 [facility] Urine protein detection by automated test strip NEGATIVE NEGATIVE 02/15/2019 [facility] Urine glucose detection by automated test strip NEGATIVE NEGATIVE 02/15/2019 [facility] Urine ketones detection by automated test strip NEGATIVE NEGATIVE 02/15/2019 [facility] Urine urobilinogen measurement by test strip (mass/volume) 0.2 0.2 - 1 02/15/2019 [facility] Urine total bilirubin detection NEGATIVE NEGATIVE 02/15/2019 [facility] Urine erythrocytes detection 1+ NEGATIVE 02/15/2019 [facility] Automated urine sediment leukocyte count by microscopy (number/high power field) 0-5 0 - 5 02/15/2019 [facility] Erythrocytes detection in urine sediment by light microscopy 0-5 0 - 5 02/15/2019 [facility] Bacteria detection in urine sediment by light microscopy RARE NONE 02/15/2019 [facility] Epithelial cells detection in urine sediment by light microscopy RARE NONE 02/15/2019 [facility] MAMMOGRAM BILAT SCREEN DIGITAL <p>IMPRESSION: BENIGN</p><p>There is no mammographic evidence of malignancy. A 1 year </p><p>screening mammogram is recommended.</p><p>This document has been electronically signed.</p><p> </p><p>Mariela Hutchinson M.D.</p><p>eunice/:02/04/2019 09:28:17</p><p> </p><p>Dump Attendant: Marcus Herring Sr. Market Development Trainer, </p><p>[facility]</p><p>letter sent: Benign Exam</p><p>Mammogram BI-RADS: 2 Benign G0202 Z85.3</p> IMPRESSION: BENIGNThere is no mammographic evidence of malignancy. A 1 year screening mammogram is recommended.This document has been electronically signed. Mariela Hutchinson M.D.ks/:02/04/2019 09:28:17 Dump Attendant: Marcus Herring Sr. Market Development Trainer[facility] ExamMammogram BI-RADS: 2 Benign G0202 Z85.3 02/04/2019 [facility] MAMMOGRAM BILAT SCREEN DIGITAL <p> </p><p>#[id number] - MAMMOGRAM BILAT SCREEN DIGITAL</p><p>BILATERAL DIGITAL SCREENING MAMMOGRAM WITH CAD: 02/04/2019</p><p>CLINICAL: Screening for malignancy.</p><p> </p><p>Comparison is made to exams dated:03/31/2015 and 04/06/2016 </p><p>[facility].</p><p>There are scattered fibroglandular elements in both breasts that </p><p>could obscure a lesion on mammography.</p><p>Current study was also evaluated with a Computer Aided Detection </p><p>(CAD) system.</p><p>No new s ignificant masses, calcifications, or other findings are </p><p>seen in either breast.</p><p> </p> #[id number] - MAMMOGRAM BILAT SCREEN DIGITALBILATERAL DIGITAL SCREENING MAMMOGRAM WITH CAD: 02/04/2019CLINICAL: Screening for malignancy. Comparison is made to exams dated:03/31/2015 and 04/06/2016 [facility].There are scattered fibroglandular elements in both breasts that could obscure a lesion on mammography.Current study was also evaluated with a Computer Aided Detection (CAD) system.No new significant masses, calcifications, or other findings are seen in either breast. 02/04/2019 [facility] MAMMOGRAM BILAT SCREEN DIGITAL <p styleCode="header">Interface, Rad/Mammog In - 02/04/2019 1:03 PM CDT</p><p>
<span>#[id number] - MAMMOGRAM BILAT SCREEN DIGITAL</span>
<span>BILATERAL DIGITAL SCREENING MAMMOGRAM WITH CAD: 02/04/2019</span>
<span>CLINICAL: Screening for malignancy. </span>

<span>Comparison is made to exams dated: 03/31/2015 and 04/06/2016 </span>
<span>[facility]. </span>
<span>There are scattered fibroglandular elements in both breasts that </span>
<span>could obscure a lesion on mammography. </span>
<span>Current study was also evaluated with a Computer Aided Detection </span>
<span>(CAD) system. </span>
<span>No new significant masses, calcifications, or other findings are &amp ;lt;/span>
<span>seen in either breast. </span>

<span>IMPRESSION</span>
<span>IMPRESSION: BENIGN</span>
<span>There is no mammographic evidence of malignancy. A 1 year </span>
<span>screening mammogram is recommended. </span>
<span>This document has been electronically signed.</span><br/&gt ;
<span>Mariela Hutchinson M.D. </span>
<span>ks/:02/04/2019 09:28:17 </span>

<span>Dump Attendant: Marcus Herring Sr. Market Development Trainer, </span>
<span>[facility]</span>&amp ;lt;br/><span>letter sent: Benign Exam </span>
<span>Mammogram BI-RADS: 2 Benign G0202 Z85.3</span></p> Interface, Rad/Mammog In - 02/04/2019 1:03 PM CDT #[id number] - MAMMOGRAM BILAT SCREEN DIGITAL BILATERAL DIGITAL SCREENING MAMMOGRAM WITH CAD: 02/04/2019 CLINICAL: Screening for malignancy. Comparison is made to exams dated: 03/31/2015 and 04/06/2016 [facility]. There are scattered fibroglandular elements in both [...] electronically signed. Mariela Hutchinson M.D. ks/:02/04/2019 09:28:17 Dump Attendant: Marcus Herring Sr. Market Development Trainer, [facility] letter sent: Benign Exam Mammogram BI-RADS: 2 Benign G0202 Z85.3 02/04/2019 [facility] LIPID PROFILE Triglyceride 180 <150 01/30/2019 Normal: < 150.0 mg/dL
Borderline: 150-199 mg/dL
High: 200- 499 mg/dL
Very High: >=500 mg/dL
[facility] LIPID PROFILE <td ID="[id number]">Cholesterol</td><td><span style="flagData">266.0</span><span style="flagData"> (H)</span>
<span style="allIndent"><span style="cellHeader">Comment: </span>
<span style="pre" ID="[id number]">Desirable: < 200.0 mg/dL<br/&gt ;Borderline: 200 - 240 mg/dL
High Risk: > 240 mg/dL
</span></span></td><td><=200.0 mg/dL</td><td>[facility]</td><td ID="[id number]"/> 266.0 <=200.0 01/30/2019 Desirable: < 200.0 mg/dL
Borderline: 200 - 240 mg/dL
High Risk: > 240 mg/dL
[facility] LIPID PROFILE <td ID="[id number]">HDL</td><td><span>71.0</span>
<span style="allIndent"><span style="cellHeader">Comment: </span>
<span style="pre" ID="[id number]">Increased CHD Risk: < 40.0 mg/dL
Decreased CHD Risk: > 60 mg/dL
</span></span></td><td>See Reference Range Narrative. mg/dL</td><td>[facility]</td><td ID="[id number]"/> 71.0 See Reference Range Narrative. 01/30/2019 Increased CHD Risk: < 40.0 mg/dL
Decreased CHD Risk: > 60 mg/dL
[facility] LIPID PROFILE <td ID="[id number]">LDL</td><td><span style="flagData">159</span><span style="flagData"> (H)</span>
<span style="allIndent"><span style="cellHeader">Comment: </span>
<span style="pre" ID="[id number]">Optimal: < 100.0 mg/dL
Near Optimal: 120-129 mg/dL
Borderline: 130-159 mg/dL
High: 160-189 mg/dL
Very High: >=190 mg/dL
</span></span></td><td><100 mg/dL</td><td>[facility]</td><td ID="[id number]"/> 159 <100 01/30/2019 Optimal: < 100.0 mg/dL
Near Optimal: 120- 129 mg/dL
Borderline: 130-159 mg/dL
High: 160-189 mg/dL
Very High: >=190 mg/dL
[facility] LIPID PROFILE <p>Patient is not fasting. For a triglyceride result greater than 440 mg/dL, consider re-testing when the patient is in a fasting state.</p> Patient is not fasting. For a triglyceride result greater than 440 mg/dL, consider re-testing when the patient is in a fasting state. 01/30/2019 [facility] LIPID PROFILE Lab Interpretation Abnormal 01/30/2019 [facility] UREA NITROGEN/CREA <td ID="[id number]">BUN</td><td>19</td><td>7 - 25 mg/dL</td><td>BT MAIN-STATION 1</td><td ID="[id number]"/> 19 7 - 25 12/26/2018 [facility] UREA NITROGEN/CREA <td ID="[id number]">Creatinine</td><td>0.80</td><td>0.6 - 1.2 mg/dL</td><td>BT MAIN-STATION 1</td><td ID="[id number]"/> 0.80 0.6 - 1.2 12/26/2018 [facility] UREA NITROGEN/CREA GFR, Estimated >60 mL/min/1.73 m2 12/26/2018 [facility] UREA NITROGEN/CREA eGFR If Africn Am >60 mL/min/1.73 m2 12/26/2018 [facility] CREATININE <td ID="[id number]">Creatinine</td><td>0.90</td><td>0.6 - 1.2 mg/dL</td><td>BT MAIN-STATION 1</td><td ID="[id number]"/> 0.90 0.6 - 1.2 11/22/2018 [facility] CREATININE GFR, Estimated >60 mL/min/1.73 m2 11/22/2018 [facility] CREATININE eGFR If Africn Am >60 mL/min/1.73 m2 11/22/2018 [facility] CHEM PANEL Globulin 4.0 2.7 - 4.2 09/06/2018 [facility] CHEM PANEL B/C Ratio 10 6 - 25 09/06/2018 [facility] CHEM PANEL AGAP 8.8 10.0 - 20.0 09/06/2018 [facility] CHEM PANEL A/G Ratio 1.0 0.7 - 1.6 09/06/2018 [facility] CHEM PANEL eGFR 58 09/06/2018 Result [...] should be multiplied by the estimated BMI. [facility] CHEM PANEL Chloride Lvl 108 95 - 109 09/06/2018 [facility] CHEM PANEL Total Protein 7.8 6.4 - 8.4 09/06/2018 [facility] CHEM PANEL Calcium Lvl 9.3 8.5 - 10.5 09/06/2018 [facility] CHEM PANEL CO2 28 24 - 32 09/06/2018 [facility] CHEM PANEL Albumin Lvl 3.8 3.5 - 5.0 09/06/2018 [facility] CHEM PANEL AST 37 0 - 37 09/06/2018 [facility] CHEM PANEL ALT 26 0 - 65 09/06/2018 [facility] CHEM PANEL Alk Phos 60 39 - 136 09/06/2018 [facility] CHEM PANEL Bili Total 0.5 0.2 - 1.3 09/06/2018 [facility] CHEM PANEL Glucose Lvl 95 70 - 99 09/06/2018 [facility] CHEM PANEL Potassium Lvl 3.8 3.5 - 5.1 09/06/2018 [facility] CHEM PANEL Sodium Lvl 141 135 - 145 09/06/2018 [facility] CHEM PANEL Creatinine Lvl 0.98 0.50 - 1.40 09/06/2018 [facility] CHEM PANEL BUN 10 7 - 22 09/06/2018 [facility] HEMATOLOGY Eosinophils # 0.2 0.0 - 0.5 09/06/2018 [facility] HEMATOLOGY Basophils # 0.1 0.0 - 0.2 09/06/2018 [facility] HEMATOLOGY Neutrophils # 3.9 1.5 - 8.1 09/06/2018 [facility] HEMATOLOGY Monocytes # 0.6 0.0 - 0.8 09/06/2018 [facility] HEMATOLOGY Lymphocytes # 2.1 1.0 - 5.5 09/06/2018 [facility] HEMATOLOGY Monocytes 8.9 2.0 - 12.0 09/06/2018 [facility] HEMATOLOGY Basophils 0.8 0.0 - 1.0 09/06/2018 [facility] HEMATOLOGY Eosinophils 2.6 0.0 - 4.0 09/06/2018 [facility] Lymphocytes 31.0 20.0 - 40.0 09/06/2018 [facility] Segs 56.7 45.0 - 75.0 09/06/2018 [facility] HEMATOLOGY MCV 89.4 80.0 - 98.0 09/06/2018 [facility] HEMATOLOGY Hct 39.3 36.0 - 48.0 09/06/2018 [facility] Hgb 13.2 12.0 - 16.0 09/06/2018 [facility] RBC 4.40 4.20 - 5.40 09/06/2018 [facility] HEMATOLOGY WBC 6.9 3.7 - 10.4 09/06/2018 [facility] HEMATOLOGY RDW 13.8 11.5 - 14.5 09/06/2018 [facility] Platelet 265 133 - 450 09/06/2018 [facility] HEMATOLOGY MPV 9.0 7.4 - 10.4 09/06/2018 [facility] MCH 30.0 27.0 - 31.0 09/06/2018 [facility] MCHC 33.6 32.0 - 36.0 09/06/2018 [facility] HEMOGLOBIN A1C <td ID="[id number]">Hemoglobin A1c</td><td>5.8</td><td>4.3 - 6.1 %</td><td> DIAGNOSTIC IMMUNOLOGY</td><td ID="[id number]"/> 5.8 4.3 - 6.1 07/25/2018 [facility] HEMOGLOBIN A1C Est Average Gluc 119.8 07/25/2018 [facility] CBC/DIFF <td ID="[id number]">WBC</td><td>7.1</td><td>4.5 - 11.0 K/uL</td><td> MAIN-STATION 2</td><td ID="[id number]"/> 7.1 4.5 - 11 07/25/2018 [facility] CBC/DIFF <td ID="[id number]">RBC</td><td>4.36</td><td>4.20 - 5.40 M/uL</td><td> MAIN-STATION 2</td><td ID="[id number]"/> 4.36 4.20 - 5.40 07/25/2018 [facility] CBC/DIFF <td ID="[id number]">Hemoglobin</td><td>13.4</td><td>12.0 - 16.0 g/dL</td><td> MAIN-STATION 2</td><td ID="[id number]"/> 13.4 12 - 16 07/25/2018 [facility] CBC/DIFF <td ID="[id number]">Hematocrit</td><td>39.6</td><td>37.0 - 47.0 %</td><td> MAIN-STATION 2</td><td ID="[id number]"/> 39.6 37 - 47 07/25/2018 [facility] CBC/DIFF <td ID="[id number]">MCV</td><td>91</td><td>82 - 92 fL</td><td>BT MAIN-STATION 2</td><td ID="[id number]"/> 91 82 - 92 07/25/2018 [facility] CBC/DIFF <td ID="[id number]">MCH</td><td>30.7</td><td>27.0 - 32.0 pg</td><td>BT MAIN-STATION 2</td><td ID="[id number]"/> 30.7 27 - 32 07/25/2018 [facility] CBC/DIFF <td ID="[id number]">MCHC</td><td>33.8</td><td>32.0 - 36.0 g/dL</td><td>BT MAIN-STATION 2</td><td ID="[id number]"/> 33.8 32 - 36 07/25/2018 [facility] CBC/DIFF <td ID="[id number]">RDW</td><td>41.3</td><td>36.4 - 46.3 fL</td><td>BT MAIN-STATION 2</td><td ID="[id number]"/> 41.3 36.4 - 46.3 07/25/2018 [facility] CBC/DIFF <td ID="[id number]">Platelets</td><td>282</td><td>150 - 400 K/uL</td><td>BT MAIN-STATION 2</td><td ID="[id number]"/> 282 150 - 400 07/25/2018 [facility] CBC/DIFF <td ID="[id number]">Mean Platelet Volume</td><td>11.9</td><td>9.4 - 12.4 fL</td><td>BT MAIN-STATION 2</td><td ID="[id number]"/> 11.9 9.4 - 12.4 07/25/2018 [facility] CBC/DIFF Percent NRBC 0.0 07/25/2018 [facility] CBC/DIFF Absolute NRBC 0.00 07/25/2018 [facility] CBC/DIFF <td ID="[id number]">Neutrophils</td><td>68.0</td><td>34.0 - 70.0 %</td><td>BT MAIN-STATION 2</td><td ID="[id number]"/> 68.0 34 - 70 07/25/2018 [facility] CBC/DIFF <td ID="[id number]">Lymphs</td><td>20.7</td><td>20.0 - 50.0 %</td><td>BT MAIN-STATION 2</td><td ID="[id number]"/> 20.7 20 - 50 07/25/2018 [facility] CBC/DIFF <td ID="[id number]">Monocytes</td><td>8.2</td><td>5.0 - 12.0 %</td><td>BT MAIN-STATION 2</td><td ID="[id number]"/> 8.2 5 - 12 07/25/2018 [facility] CBC/DIFF <td ID="[id number]">Eos</td><td>2.0</td><td>0.7 - 5.0 %</td><td>BT MAIN-STATION 2</td><td ID="[id number]"/> 2.0 0.7 - 5 07/25/2018 [facility] CBC/DIFF <td ID="[id number]">Basos</td><td>0.7</td><td>0.1 - 1.2 %</td><td>BT MAIN-STATION 2</td><td ID="[id number]"/> 0.7 0.1 - 1.2 07/25/2018 [facility] CBC/DIFF Immature Granulocytes 0.4 0.0 - 0.5 07/25/2018 [facility] CBC/DIFF Neutrophils (Absolute) 4.83 1.56 - 6.13 07/25/2018 [facility] CBC/DIFF Lymphs (Absolute) 1.47 1.18 - 3.74 07/25/2018 [facility] CBC/DIFF Monocytes(Absolute) 0.58 0.24 - 0.36 07/25/2018 [facility] CBC/DIFF Eos (Absolute) 0.14 0.04 - 0.36 07/25/2018 [facility] CBC/DIFF Baso (Absolute) 0.05 0.01 - 0.08 07/25/2018 [facility] CBC/DIFF Immature Grans (Abs) 0.03 0 - 0.03 07/25/2018 [facility] CBC/DIFF Lab Interpretation Abnormal 07/25/2018 [facility] TSH <td ID="[id number]">TSH</td><td>1.65</td><td>0.57 - 3.74 uIU/mL</td><td>BT MAIN-STATION 1</td><td ID="[id number]"/> 1.65 0.57 - 3.74 07/25/2018 [facility] COMPREHENSIVE METABOLIC PANEL(DBIL NOT INCLUDED) <td ID="[id number]">Albumin</td><td>4.1</td><td>3.7 - 5.3 g/dL</td><td>BT MAIN-STATION 1</td><td ID="[id number]"/> 4.1 3.7 - 5.3 07/25/2018 [facility] COMPREHENSIVE METABOLIC PANEL(DBIL NOT INCLUDED) <td ID="[id number]">Calcium</td><td>9.4</td><td>8.6 - 10.3 mg/dL</td><td>BT MAIN-STATION 1</td><td ID="[id number]"/> 9.4 8.6 - 10.3 07/25/2018 [facility] COMPREHENSIVE METABOLIC PANEL(DBIL NOT INCLUDED) <td ID="[id number]">CO2</td><td>28</td><td>21 - 31 mmol/L</td><td>BT MAIN-STATION 1</td><td ID="[id number]"/> 28 21 - 31 07/25/2018 [facility] COMPREHENSIVE METABOLIC PANEL(DBIL NOT INCLUDED) <td ID="[id number]">Chloride</td><td>101</td><td>98 - 107 mmol/L</td><td>BT MAIN-STATION 1</td><td ID="[id number]"/> 101 98 - 107 07/25/2018 [facility] COMPREHENSIVE METABOLIC PANEL(DBIL NOT INCLUDED) <td ID="[id number]">Creatinine</td><td>1.00</td><td>0.6 - 1.2 mg/dL</td><td>BT MAIN-STATION 1</td><td ID="[id number]"/> 1.00 0.6 - 1.2 07/25/2018 [facility] COMPREHENSIVE METABOLIC PANEL(DBIL NOT INCLUDED) <td ID="[id number]">Glucose</td><td><span style="flagData">125</span><span style="flagData"> (H)</span></td><td>70 - 110 mg/dL</td><td>BT MAIN-STATION 1</td><td ID="[id number]"/> 125 70 - 110 07/25/2018 [facility] COMPREHENSIVE METABOLIC PANEL(DBIL NOT INCLUDED) <td ID="[id number]">Alkaline Phosphatase, S</td><td>55</td><td>34 - 104 U/L</td><td>[facility]-ST[facility] 1</td><td ID="[id number]"/> 55 34 - 104 07/25/2018 [facility] COMPREHENSIVE METABOLIC PANEL(DBIL NOT INCLUDED) <td ID="[id number]">Potassium</td><td>4.3</td><td>3.5 - 5.1 mmol/L</td><td>[facility] 1</td><td ID="[id number]"/> 4.3 3.5 - 5.1 07/25/2018 [facility] COMPREHENSIVE METABOLIC PANEL(DBIL NOT INCLUDED) <td ID="[id number]">Sodium</td><td>137</td><td>136 - 145 mmol/L</td><td>[facility]-ST[facility] 1</td><td ID="[id number]"/> 137 136 - 145 07/25/2018 [facility] COMPREHENSIVE METABOLIC PANEL(DBIL NOT INCLUDED) <td ID="[id number]">ALT</td><td>19</td><td>7 - 52 U/L</td><td>[facility] 1</td><td ID="[id number]"/> 19 7 - 52 07/25/2018 [facility] [facility] COMPREHENSIVE METABOLIC PANEL(DBIL NOT INCLUDED) <td ID="[id number]">AST (SGOT)</td><td>24</td><td>13 - 39 U/L</td><td>BT MAIN-STATION 1</td><td ID="[id number]"/> 24 13 - 39 07/25/2018 [facility] COMPREHENSIVE METABOLIC PANEL(DBIL NOT INCLUDED) <td ID="[id number]">BUN</td><td>16</td><td>7 - 25 mg/dL</td><td>BT MAIN-STATION 1</td><td ID="[id number]"/> 16 7 - 25 07/25/2018 [facility] COMPREHENSIVE METABOLIC PANEL(DBIL NOT INCLUDED) <td ID="[id number]">Bilirubin, Total</td><td>0.4</td><td>0.2 - 1.2 mg/dL</td><td>BT MAIN-STATION 1</td><td ID="[id number]"/> 0.4 0.2 - 1.2 07/25/2018 [facility] COMPREHENSIVE METABOLIC PANEL(DBIL NOT INCLUDED) <td ID="[id number]">Protein, Total, Serum</td><td>7.1</td><td>6.0 - 8.3 g/dL</td><td>BT MAIN-STATION 1</td><td ID="[id number]"/> 7.1 6 - 8.3 07/25/2018 [facility] COMPREHENSIVE METABOLIC PANEL(DBIL NOT INCLUDED) GFR, Estimated 55 mL/min/1.73 m2 07/25/2018 [facility] COMPREHENSIVE METABOLIC PANEL(DBIL NOT INCLUDED) eGFR If Africn Am >60 mL/min/1.73 m2 07/25/2018 [facility] COMPREHENSIVE METABOLIC PANEL(DBIL NOT INCLUDED) Anion Gap 8 07/25/2018 [facility] COMPREHENSIVE METABOLIC PANEL(DBIL NOT INCLUDED) Lab Interpretation Abnormal 07/25/2018 [facility] URIC ACID Uric acid 7.1 2.3 - 6.6 07/25/2018 [facility] URIC ACID Lab Interpretation Abnormal 07/25/2018 [facility] UA CHEMISTRIES <td ID="[id number]">Color</td><td>Yellow</td><td/><td>[facility]</td><td ID="[id number]"/> Yellow 04/12/2018 [facility] UA CHEMISTRIES Clarity Clear 04/12/2018 [facility] UA CHEMISTRIES <td ID="[id number]">Specific [place]</td><td>1.010</td><td>1.001 - 1.035</td><td>[facility]</td><td ID="[id number]"/> 1.010 1.001 - 1.035 04/12/2018 [facility] UA CHEMISTRIES <td ID="[id number]">pH</td><td>6.5</td><td>5 - 8</td><td>[facility]</td><td ID="[id number]"/> 6.5 5 - 8 04/12/2018 [facility] UA CHEMISTRIES <td ID="[id number]">Protein</td><td>Negative</td><td>NEG</td><td>[facility]</td><td ID="[id number]"/> Negative NEG 04/12/2018 [facility] UA CHEMISTRIES <td ID="[id number]">Glucose</td><td>Negative</td><td>NEG</td><td>[facility]</td><td ID="[id number]"/> Negative NEG 04/12/2018 [facility] UA CHEMISTRIES <td ID="[id number]">Ketones</td><td>Negative</td><td>NEG</td><td>[facility]</td><td ID="[id number]"/> Negative NEG 04/12/2018 [facility] UA CHEMISTRIES <td ID="[id number]">Bilirubin</td><td>Negative</td><td>NEG</td><td>[facility]</td><td ID="[id number]"/> Negative NEG 04/12/2018 [facility] UA CHEMISTRIES <td ID="[id number]">Nitrate</td><td>Negative</td><td>NEG</td><td>[facility]</td><td ID="[id number]"/> Negative NEG 04/12/2018 [facility] UA CHEMISTRIES <td ID="[id number]">Urobilinogen,Semi- Qn</td><td>0.2</td><td>0.2 - 1.0 EU/dL</td><td>[facility]</td><td ID="[id number]"/> 0.2 0.2 - 1 04/12/2018 [facility] UA CHEMISTRIES <td ID="[id number]">Leukocyte</td><td><span style="flagData">2+</span><span style="flagData"> (A)</span></td><td>NEG</td><td>[facility]</td><td ID=&quot ;[id number]"/> 2+ NEG 04/12/2018 [facility] UA CHEMISTRIES Occult Blood 2+ NEG 04/12/2018 [facility] UA CHEMISTRIES Lab Interpretation Abnormal 04/12/2018 [facility] UA MICROSCOPIC WBC >50 0 - 5 04/12/2018 [facility] UA MICROSCOPIC RBC 11-21 0 - 4 04/12/2018 [facility] UA MICROSCOPIC Epithelial Cell <1 /HPF 04/12/2018 [facility] UA MICROSCOPIC Bacteria Moderate 04/12/2018 [facility] UA MICROSCOPIC Lab Interpretation Abnormal 04/12/2018 [facility] URINE CULTURE Culture 1,000-10,000 CFU/ml Streptococcus species BT MICROBIOLOGY 04/12/2018 [facility] BASIC METABOLIC PANEL <td ID="[id number]">CO2</td><td>28</td><td>21 - 31 mmol/L</td><td>BT MAIN-STATION 1</td><td ID="[id number]"/> 28 21 - 31 03/23/2018 [facility] BASIC METABOLIC PANEL <td ID="[id number]">Chloride</td><td>103</td><td>98 - 107 mmol/L</td><td>BT MAIN-STATION 1</td><td ID="[id number]"/> 103 98 - 107 03/23/2018 [facility] BASIC METABOLIC PANEL <td ID="[id number]">Potassium</td><td>4.4</td><td>3.5 - 5.1 mmol/L</td><td>BT MAIN-STATION 1</td><td ID="[id number]"/> 4.4 3.5 - 5.1 03/23/2018 [facility] BASIC METABOLIC PANEL <td ID="[id number]">Sodium</td><td>141</td><td>136 - 145 mmol/L</td><td>BT MAIN-STATION 1</td><td ID="[id number]"/> 141 136 - 145 03/23/2018 [facility] BASIC METABOLIC PANEL <td ID="[id number]">Glucose</td><td>94</td><td>70 - 110 mg/dL</td><td>BT MAIN-STATION 1</td><td ID="[id number]"/> 94 70 - 110 03/23/2018 [facility] BASIC METABOLIC PANEL <td ID="[id number]">BUN</td><td>16</td><td>7 - 25 mg/dL</td><td>BT MAIN-STATION 1</td><td ID="[id number]"/> 16 7 - 25 03/23/2018 [facility] BASIC METABOLIC PANEL <td ID="[id number]">Creatinine</td><td>1.10</td><td>0.6 - 1.2 mg/dL</td><td>BT MAIN-STATION 1</td><td ID="[id number]"/> 1.10 0.6 - 1.2 03/23/2018 [facility] BASIC METABOLIC PANEL Anion Gap 10 03/23/2018 [facility] BASIC METABOLIC PANEL <td ID="[id number]">Calcium</td><td>9.7</td><td>8.6 - 10.3 mg/dL</td><td>BT MAIN-STATION 1</td><td ID="[id number]"/> 9.7 8.6 - 10.3 03/23/2018 [facility] BASIC METABOLIC PANEL GFR, Estimated 49 mL/min/1.73 m2 03/23/2018 [facility] BASIC METABOLIC PANEL eGFR If Africn Am 60 mL/min/1.73 m2 03/23/2018 [facility] LIVER PROFILE <td ID="[id number]">Protein, Total, Serum</td><td>7.1</td><td>6.0 - 8.3 g/dL</td><td>BT MAIN-STATION 1</td><td ID="[id number]"/> 7.1 6 - 8.3 03/23/2018 [facility] LIVER PROFILE <td ID="[id number]">Albumin</td><td>4.5</td><td>3.7 - 5.3 g/dL</td><td>BT MAIN-STATION 1</td><td ID="[id number]"/> 4.5 3.7 - 5.3 03/23/2018 [facility] LIVER PROFILE <td ID="[id number]">Bilirubin, Total</td><td>0.4</td><td>0.2 - 1.2 mg/dL</td><td>BT MAIN-STATION 1</td><td ID="[id number]"/> 0.4 0.2 - 1.2 03/23/2018 [facility] LIVER PROFILE <td ID="[id number]">Alkaline Phosphatase, S</td><td>54</td><td>34 - 104 U/L</td><td>BT MAIN-STATION 1</td><td ID="[id number]"/> 54 34 - 104 03/23/2018 [facility] LIVER PROFILE <td ID="[id number]">AST (SGOT)</td><td>25</td><td>13 - 39 U/L</td><td>BT MAIN-STATION 1</td><td ID="[id number]"/> 25 13 - 39 03/23/2018 [facility] LIVER PROFILE <td ID="[id number]">ALT</td><td>20</td><td>7 - 52 U/L</td><td>BT MAIN-STATION 1</td><td ID="[id number]"/> 20 7 - 52 03/23/2018 [facility] LIVER PROFILE <td ID="[id number]">D Bilirubin</td><td>0.1</td><td>0.0 - 0.2 mg/dL</td><td>BT MAIN-STATION 1</td><td ID="[id number]"/> 0.1 0 - 0.2 03/23/2018 [facility] 12 LEAD EKG 12 LEAD EKG FOR [facility] Test Date:2018-03-22 Pat Name: JOSE MIGUEL Vegapartment: : Gender: FTechnician: [id number] Requested By: Order Number:Reading MD: Laurence Hughes M.D. Measurements IntervalsAxis Rate: 64 P:62 TN: 160QRS:42 QRSD: 92 T:74 QT: 427 QTc:441 Interpretive Statements SINUS RHYTHM Electronically Signed On 03-22-18 10:20:40 CDT by Laurence Hughes M.D. 03/22/2018 [facility] URINE AND STOOL UA WBC 1 0 - 5 02/17/2018 [facility] URINE AND STOOL UA RBC 3 0 - 2 02/17/2018 [facility] URINE AND STOOL UA Leuk Est Negative (02/17/18 10:23 AM) Negative 02/17/2018 [facility] URINE AND STOOL UA Sq Epi Occasional /LPF Few /LPF 02/17/2018 [facility] URINE AND STOOL UA Urobilinogen <=1.0 mg/dL 0.1 - 1.0 02/17/2018 [facility] URINE AND STOOL UA Color Ltyellow 02/17/2018 [facility] URINE AND STOOL UA Glucose Negative mg/dL Negative mg/dL 02/17/2018 [facility] URINE AND STOOL UA Spec Grav 1.008 <=1.030 02/17/2018 [facility] URINE AND STOOL UA Protein Negative mg/dL Negative mg/dL 02/17/2018 [facility] URINE AND STOOL UA pH 6.0 5.0 - 8.0 02/17/2018 [facility] URINE AND STOOL UA Turbidity Clear (02/17/18 10:23 AM) Clear 02/17/2018 [facility] URINE AND STOOL UA Nitrite Negative (02/17/18 10:23 AM) Negative 02/17/2018 [facility] URINE AND STOOL UA Bili Negative *NA* (02/17/18 10:23 AM) Negative 02/17/2018 [facility] URINE AND STOOL UA Ketones Negative mg/dL Negative mg/dL 02/17/2018 [facility] URINE AND STOOL UA Blood Small *ABN* (02/17/18 10:23 AM) Negative 02/17/2018 [facility] TOXICOLOGY Etoh (%) <0.003 02/17/2018 [facility] TOXICOLOGY Ethanol Lvl <3 02/17/2018 [facility] CARDIAC ENZYMES CK MB Index 1.7 0.0 - 2.5 02/17/2018 [facility] CARDIAC ENZYMES Troponin-I <0.02 0.00 - 0.40 02/17/2018 [facility] CARDIAC ENZYMES Total CK 277 12 - 191 02/17/2018 [facility] CARDIAC ENZYMES CK MB 4.7 0.5 - 3.6 02/17/2018 [facility] CHEM PANEL Magnesium Lvl 2.0 1.8 - 2.4 02/17/2018 [facility] CHEM PANEL Lipase Lvl 119 73 - 393 02/17/2018 [facility] CHEM PANEL eGFR 59 02/17/2018 Result [...] should be multiplied by the estimated BMI. [facility] CHEM PANEL BUN 14 7 - 22 02/17/2018 [facility] CHEM PANEL Glucose Lvl 107 70 - 99 02/17/2018 [facility] CHEM PANEL Albumin Lvl 3.5 3.5 - 5.0 02/17/2018 [facility] CHEM PANEL ALT 25 0 - 65 02/17/2018 [facility] CHEM PANEL AST 25 0 - 37 02/17/2018 [facility] CHEM PANEL Calcium Lvl 8.7 8.5 - 10.5 02/17/2018 [facility] CHEM PANEL Total Protein 6.9 6.4 - 8.4 02/17/2018 [facility] CHEM PANEL Alk Phos 51 39 - 136 02/17/2018 [facility] CHEM PANEL CO2 29 24 - 32 02/17/2018 [facility] CHEM PANEL Sodium Lvl 143 135 - 145 02/17/2018 [facility] CHEM PANEL Chloride Lvl 106 95 - 109 02/17/2018 [facility] CHEM PANEL Creatinine Lvl 0.98 0.50 - 1.40 02/17/2018 [facility] CHEM PANEL Potassium Lvl 4.0 3.5 - 5.1 02/17/2018 [facility] CHEM PANEL Globulin 3.4 2.7 - 4.2 02/17/2018 [facility] CHEM PANEL Bili Total 0.3 0.2 - 1.3 02/17/2018 [facility] CHEM PANEL B/C Ratio 14 6 - 25 02/17/2018 [facility] CHEM PANEL A/G Ratio 1.0 0.7 - 1.6 02/17/2018 [facility] CHEM PANEL AGAP 12.0 10.0 - 20.0 02/17/2018 [facility] HEMATOLOGY Neutrophils # 2.8 1.5 - 8.1 02/17/2018 [facility] HEMATOLOGY Basophils 0.8 0.0 - 1.0 02/17/2018 [facility] Monocytes # 0.5 0.0 - 0.8 02/17/2018 [facility] Lymphocytes # 1.4 1.0 - 5.5 02/17/2018 [facility] HEMATOLOGY Eosinophils 3.5 0.0 - 4.0 02/17/2018 [facility] Lymphocytes 28.7 20.0 - 40.0 02/17/2018 [facility] Segs 57.5 45.0 - 75.0 02/17/2018 [facility] Monocytes 9.5 2.0 - 12.0 02/17/2018 [facility] Eosinophils # 0.2 0.0 - 0.5 02/17/2018 [facility] INR 0.91 0.85 - 1.17 02/17/2018 [facility] PTT 28.6 22.9 - 35.8 02/17/2018 [facility] PT 12.3 12.0 - 14.7 02/17/2018 [facility] RDW 14.1 11.5 - 14.5 02/17/2018 [facility] WBC 4.9 3.7 - 10.4 02/17/2018 [facility] MCHC 34.2 32.0 - 36.0 02/17/2018 [facility] MCV 90.0 80.0 - 98.0 02/17/2018 [facility] MCH 30.7 27.0 - 31.0 02/17/2018 [facility] Hgb 13.4 12.0 - 16.0 02/17/2018 [facility] Hct 39.1 36.0 - 48.0 02/17/2018 [facility] HEMATOLOGY Platelet 201 133 - 450 02/17/2018 [facility] MPV 9.4 7.4 - 10.4 02/17/2018 [facility] RBC 4.35 4.20 - 5.40 02/17/2018 [facility] Pathology Reports No Data Provided for This Section Diagnostic Reports Report Value Date Source Spine lumbar wo contrast MRI Spine lumbar wo contrast MRI 03/19/2019 14:34 CDT CLINICAL: M54.5 Low back pain - M54.5 Low back pain COMPARISON: 03/07/2019 radiograph exam. TECHNIQUE: Sagittal T1, sagittal T2 with fat saturation, axial T1 and axial T2 images were obtained. No intravenous gadolinium was given. FINDINGS: The conus medullaris terminates at the T12-L1 level. Mild S-shaped curvature of the lumbar spine is present. Mild L3 inferior endplate recent compression fracture is present with moderate marrow edema. Edema extension to the bilateral L3 pedicles is present, but no pedicular fracture line is identified. There is approximately 25% loss of vertebral height. No retropulsion is identified. T12-L1: 2.5 mm central superiorly migrated disc extrusion is present with mild central canal stenosis. No mass effect on the conus medullaris. L1-L2: 1.2 mm retrolisthesis. No central canal stenosis. Mild left foraminal stenosis due to disc osteophyte complex encroachment. L2-L3: Scattered annular fissures are present. No central canal stenosis. Polz-qe-wtvnybpd bilateral foraminal stenosis due to disc bulge encroachment. L3-L4: Moderate ligamenta flava thickening is present. 2 mm disc bulge is present with mild to moderate central canal stenosis. Severe left foraminal stenosis and moderate right foraminal stenosis due to disc osteophyte complex encroachment. Mass effect on left L3 exiting nerve root is present. L4-L5: Severe disc narrowing. 2 mm retrolisthesis posterior disc osteophyte complex with mild central canal stenosis. Severe right foraminal stenosis and moderate left foraminal stenosis due to right greater than left foraminal and extraforaminal osteophytes. L5-S1: No central canal stenosis. Mild left foraminal stenosis due to disc osteophyte complex encroachment. IMPRESSION: 1. Mild recent L3 vertebral compression fracture with moderate marrow edema. No retropulsion. If indicated, kyphoplasty or vertebroplasty may be performed for therapeutic pain relief and structural support. 2. T12-L1 central superiorly migrated extrusion with mild central canal stenosis. 3. L2-L3 mild to moderate bilateral foraminal stenosis. 4. L3-L4 ytze-nf-vydvixav central canal stenosis, severe left foraminal stenosis, moderate right foraminal stenosis as above. 5. L4-L5 severe right foraminal stenosis and moderate left foraminal stenosis. 03/19/2019 [facility] Bone Density D[employer] MA BONE DENSITY ASSESSMENT: 03/19/2019 CLINICAL DATA: Post menopausal. M54.5 Low back pain, S32.030A Wedge compression fracture of third lumbar vertebra, initial encounter for closed fracture. M54.5 Low Back Pain, S32.030a Wedge Compression Fracture Of Third Lumbar Vertebra, Initial Encounter For Closed Fracture/M54.5 Low Back Pain, S32.030a Wedge Compression Fracture Of Third Lumbar Vertebra, Initial Encounter For Closed Fracture RISK FACTORS: race, history of previous fracture, and previous spine, rib, or hip fractures. FINDINGS: Bone density evaluation was performed 03/19/2019 on the left ultra distal radius and ulna using a Hologic unit. The BMD average for the exam is 0.639 g/cm2. The T-score is -0.90 and the Z-score is 1.20. This matches the World Health Organization's criteria for normal bone density and places the patient within normal limits of fracture risk. An additional bone density evaluation was performed 03/19/2019 on the AP L1-L3 region of spine using a Hologic unit. The BMD average for the exam is 0.968 g/cm2. The T-score is -0.50 and the Z-score is 1.60. This matches the World Health Organization's criteria for normal bone density and places the patient within normal limits of fracture risk. IMPRESSION: BONE DENSITY WITHIN NORMAL LIMITS Patient is at normal risk for fracture. This exam was interpreted at [id number] for HERB Higgins 15. Aaron Rodney M.D., cm/larissa:03/20/2019 08:32:13 Dump Attendant(s): Margaret Fagan RT(R)(M), [facility] 03/19/2019 [facility] Spine T-L (or entire) 2-3 Views DX EXAM: SCOLIOSIS SERIES 2 VIEWS DATE: 03/07/2019 11:47 CDT INDICATION: back pain - lower back pain ADDITIONAL INFORMATION: None. COMPARISON: CT pelvis 09/05/2018, lumbar spine radiograph 09/05/2018. TECHNIQUE: Full-length weight-bearing composite AP and lateral radiographs of the spine. FINDINGS: Mild dextroscoliosis of the lower thoracic spine. Vertebral body heights and disc heights are maintained throughout the thoracic spine. Mild levoscoliosis of the lumbar spine centered at L3-L4. Vertebral body height loss right greater than left of the L3 vertebra. Severe disc height loss and endplate remodeling at L4-L5. Severe disc height loss at L5-S1. Severe facet arthropathy of the lower lumbar spine. The sacroiliac joints are maintained. Partially visualized bilateral hip arthroplasties. IMPRESSION: 1. Anterior wedge compression fracture right greater than left of the L3 vertebral body. Findings were discussed with Dr. Garzon at 1705 hours on 03/07/[address] Gann. 2. Mild dextroscoliosis of the lower thoracic spine. 3. Mild levoscoliosis of lumbar spine centered at L3-L4. 4. Severe disc height loss and endplate remodeling at L4-L5 and L5-S1. 5. Severe facet arthropathy of the lower lumbar spine. 03/07/2019 [facility] Spine Thoracic wo contrast MRI EXAM: MRI THORACIC SPINE WITHOUT CONTRAST DATE: 03/07/2019 10:52 CDT INDICATION: - LBP, R/O SPINE CORD INJURY COMPARISON: None. TECHNIQUE: Multiplanar, multisequence noncontrast MR imaging of the thoracic spine. FINDINGS: Alignment: The alignment of the thoracic spine demonstrates mild exaggerated kyphosis. Bone: Homogeneous bone marrow signal without evidence of acute fracture or edema. The caliber and signal of the thoracic cord is normal. There is prominence of the central canal. Minimal posterior disc osteophytes are seen within the lower thoracic levels and upper lumbar levels. There is no significant spinal canal or neural foraminal stenosis. Paraspinal soft tissues: Normal. Incidental: None IMPRESSION: 1. No acute fracture of the thoracic spine. 2. The central canal the spinal cord is visible throughout most of the thoracic levels. It is not dilated and does not represent a syrinx. 3. Mild exaggerated kyphosis. Minimal degenerative disc disease of the thoracic spine without spinal canal or neural foraminal stenosis. 03/07/2019 [facility] BONE DENSITY (DUAL PHOTON) IMPRESSION: Persistent mild osteopenia in left radius. There is no significantinterval change since 2017 Signed By: Elise Morales MD, 01/23/2019 11:50 AM EXAM: DEXA EXAM: DEXA INDICATION: Osteopenia for followup. COMPARISON: 02/12/2017. TECHNIQUE: The patient underwent bone mineral densitometry using [employer] SL dual energy x-ray absorptiometry (DEXA).T-score is tocompare the female peak bone mineral density (BMD). WHO definition ofosteoporosis is T<-2.5 and osteopenia is T <-1.0. FINDINGS: Region..............BMD.......T score....%ChangeSpine L1-4....... 1.011 ....... -0.3 ....... 0%LeftRadius 1/3........ 0.664 ........ -0.3 ..... - 2.2%Total radius .... 0.505 ....... -1.2 .......n/a Interface, Rad/Mammog In - 01/23/2019 11:55 AM CDT EXAM: DEXA EXAM: DEXA INDICATION: Osteopenia for followup. COMPARISON: 02/12/2017. TECHNIQUE: The patient underwent bone mineral densitometry using [employer] SL dual energy x-ray absorptiometry (DEXA). [...] significant interval change since 2016 Signed By: Elise Morales MD, 01/23/2019 11:50 AM 01/23/2019 [facility] MRI SHOULDER JOINT W/O CONTRAST IMPRESSION:1.Significant tendinosis of the anterior fibers the supraspinatus andalso of the infraspinatus anterior fibers are noted.2.Only the proximal 8 centimeters the humerus is included in thecurrent evaluation. No significant abnormality seen involving the medialcortex of the humerus or of the marrow space.3.Small intracystic change in the myotendinous junction of thesupraspinatus line mild degenerative changes acromioclavicular joint.4.Small subacromial subdeltoid bursitis. Signed By: Vick Renee MD, 01/22/2019 11:28 AM EXAM: MR LEFT SHOULDER WITHOUT CONTRAST DATE: 01/21/2019 6:40 PM INDICATION: Abn xray, shoulder. Chronic left shoulder pain COMPARISON: None. TECHNIQUE: Axial, oblique coronal, and oblique sagittal MR images of [facility]. IV contrast: None. FINDINGS: LONG BICIPITAL TENDON The biceps tendon is intact, and within the bicipital groove. GLENOHUMERAL JOINT Labrum: Minimal degenerative changes are present. No paralabral cysts Cartilage: No focal defect. Ligaments: No gle nohumeral or other ligamentous abnormalityJoint fluid: There is no glenohumeral joint effusion. ROTATOR CUFF AND ASSOCIATED STRUCTURES Rotator cuff: Significant tendinosis of the anterior fibers thesupraspinatus is present.Conjoint tendon tendinosis and anterior fibers of the infraspinatus isalso present. No focal disruption is identified.Subscapularis and teres minor are intact.Musculature: Small intramuscular cystic changes present involving thecentral raphe of the supraspinatus at the myotendinous junction.Bursa: Moderate fluid in subacromial subdeltoid bursa. Acromioclavicular joint: There are moderate degenerative changes of theacromioclavicular joint. A type 1 acromion configuration is noted. OSSEOUS STRUCTURES No fracture. Visualized bone marrow signal is normal. Only the proximalmost aspect of the left humerus is evaluated. No significant no mildlyis seen along the medial cortical margin or along the marrow of thevisualized section of the humerus. Only the proximal 8 cm of the humerusis included in the current evaluation. OTHER FINDINGS: None. Interface, Rad/Mammog In - 01/22/2019 11:33 AM CDTEXAM: MR LEFT SHOULDER WITHOUT CONTRAST DATE: 01/21/2019 [...] By: Vick Renee MD, 01/22/2019 11:28 AM 01/22/2019 [facility] Knee wo contrast MRI EXAM: Knee wo [...] No worrisome chondral defects are detected. 01/03/2019 [facility] Spine cervical wo contrast MRI EXAM: [...] and on the left at C6-C7. 01/03/2019 [facility] XRAY SHOULDER 2 VIEWS MIN IMPRESSION: Questionable irregular periosteal reaction with subtle bone permeationinvolving the proximal humeral diaphysis. This may be related to deltoidinsertion and osseous demineralization. However, recommend bone scan toexclude malignancy as it can present in a similar fashion Mild to moderate degenerative changes of the acromioclavicular andglenohumeral joints. Dictated By: Michelle Sheikh DO, 11/11/2018 1:19 PM I have reviewed the study and agree with the findings in this report. Signed By: Devon Tran DO, 11/11/2018 4:14 PM Left shoulder radiographs: 2 VIEWS HISTORY:shoulder pain COMPARISON: None DISCUSSION:Bone:No acute displaced fracture. Subtle periosteal thickening along the of the proximal humeral diaphysiswith subtle permeation of the bone at this location.Chronic fracture deformity of the anterior third ribAdequate internal/external rotation. Joint(s):Mild to moderate degenerative changes of the acromioclavicular andglenohumeral joints.No dislocation. Soft tissues:The soft tissues appear unremarkable. Interface, Rad/Mammog In - 11/11/2018 4:19 PM CDTLeft shoulder radiographs: 2 VIEWS HISTORY: shoulder pain [...] By: Devon Tran DO, 11/11/2018 4:14 PM 11/11/2018 [facility] Pelvis wo IV contrast CT CT PELVIS [...] soft tissues is grossly unremarkable. SL:16 09/05/2018 [facility] Femur 2 views bilateral DX 2 RADIOGRAPHIC [...] primary osteoarthritic narrowing of both knees. 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 The soft tissues are normal. 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 SL: TWILA 09/05/2018 [facility] Brain wo contrast MRI EXAM: Brain [...] acute intracranial abnormality. Partial empty sella. 05/15/2018 [facility] Humerus 2 views DX EXAM: XR HUMERUS [...] Normal exam of the right humerus. 05/15/2018 [facility] Hip 2/3 views uni w pelvis DX [...] appearance of right total hip arthroplasty. 05/15/2018 [facility] Spine lumbar myelogram CT UNENHANCED CT LUMBAR [...] the aorta. IMPRESSION: 1. There are multilevel [id number] lateral recess and neural foraminal stenoses discussed on a level by level basis in the findings. There is no significant spinal canal stenosis at any lumbar level. SL: JBLUNCK-Concepción 04/15/2018 [facility] Spine lumbar myelogram DX Patient Name: JOSE MIGUEL BLAS : 1950; Age: 67 years y/o Female MR: [id number] Study: Spine lumbar myelogram DX 04/15/2018 9:08 AM CDT PROCEDURE: Fluoroscopic-guided lumbar myelogram CLINICAL INFORMATION: - M54.5 Low back pain COMPARISON: None. CONSENT: The procedure, risks, benefits and alternatives were discussed and written informed consent was obtained. A 'time out' was performed per protocol prior to the procedure. 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 IMPRESSION: Successful fluoroscopic-guided lumbar myelogram. SL: [id number] 04/15/2018 [facility] HEAD W/O CONTRAST IMPRESSION: No acute abnormalities.No changes when compared to the previous studies. Chronic findings:1.Mild generalized volume loss.2.Mild supratentorial white matter small vessel ischemic changes.3.Incidental atherosclerotic calcifications in the carotid siphons. Signed By: Haider Akhtar MD, 04/03/2018 11:04 AM Exam : Head CT without contrastHistory: multiple falls, headache Comparison studies: Head CT on 02/02/2016, cervical and intracranial CTAs on 11/17/2016. Technique: Axial scans were obtained from skull base to the vertex.Coronal and sagittal reconstructions obtained from the axial data. IV Contrast: None Complications: None Radiation Dose: Total DLP: 859.97 mGy*cm.Estimated Effective Dose: DLP x 0.0021 mSv FINDINGS: See impression Interface, Rad/Mammog In - 04/03/2018 11:09 AM CDTExam : Head CT without contrast History: multiple [...] By: Haider Akhtar MD, 04/03/2018 11:04 AM 04/03/2018 [facility] Knee 3 views DX EXAM: Knee 3 [...] is mild within the medial compartment. 04/03/2018 [facility] Chest 1view DX Clinical Indication: Chest pain - fall. Comparison: None. FINDINGS: AP chest radiograph was obtained. MEDIASTINUM: The cardiac silhouette is normal in size. The aorta is unremarkable. LUNGS: The lungs are clear. No pleural effusion. No pneumothorax. OTHER: No acute osseous abnormalities. Chronic resorption of the distal left clavicle. IMPRESSION: No acute cardiopulmonary abnormality identified. SL: MRICHTER 02/17/2018 [facility] contrast CT I have reviewed this examination [...] of atrophy and chronic microvascular sequela. ----- SL: [id number] 02/17/2018 [facility] Hip 2/3 views uni w pelvis DX Right hip 2views: Right total hip arthroplasty is seen in satisfactory position. There is no fracture or dislocation or evidence of loosening. There are no other significant osseous or soft tissue abnormalities. IMPRESSION: No acute radiographic abnormality of the right hip. [id number] 07/26/2017 [facility] contrast CT Clinical Indication: Fall with trauma [...] right frontoparietal calvarium near the vertex. SL: [id number] 07/26/2017 [facility] Spine cervical wo contrast CT (ER) [...] of the cervical spine. SL: OLIVA 07/26/2017 [facility] Brain wo contrast CT Patient Name: JOSE MIGUEL BLAS : 1950; Age: 65 years y/o Female MR: [id number] Study: Brain wo contrast CT 05/09/2016 7:28 [...] Otherwise unremarkable head CT without contrast. SL: [id number] 05/09/2016 [facility] Spine cervical wo contrast CT CT [...] acute findings in the cervical spine. 05/09/2016 [facility] Consultation Notes No Data Provided for This Section Discharge Summaries No Data Provided for This Section History and Physicals No Data Provided for This Section Vital Signs Vital Sign Value Date Comments Source Systolic (mm Hg) 143 03/27/2019 [facility] Diastolic (mm Hg) 71 03/27/2019 [facility] Heart Rate 85 03/27/2019 [facility] Temperature Oral (F) 36.61 Vanessa 03/27/2019 [facility] Respitory Rate 18 03/27/2019 [facility] Height 180.3 cm 03/27/2019 [facility] Weight 77.111 03/27/2019 [facility] Systolic (mm Hg) 134 02/27/2019 [facility] Diastolic (mm Hg) 74 02/27/2019 [facility] Heart Rate 93 02/27/2019 [facility] Temperature Oral (F) 36.5 Vanessa 02/27/2019 [facility] Respitory Rate 18 02/27/2019 [facility] Height 180.3 cm 02/27/2019 [facility] Weight 81.647 02/27/2019 [facility] Temperature Oral (F) 98.2 F 09/06/2018 [facility] Systolic (mm Hg) 148 09/06/2018 [facility] Diastolic (mm Hg) 68 09/06/2018 [facility] Respitory Rate 18 09/06/2018 [facility] Heart Rate 68 09/06/2018 [facility] Respitory Rate 18 09/06/2018 [facility] Temperature Oral (F) 98.0 F 09/06/2018 [facility] Heart Rate 74 09/06/2018 [facility] Systolic (mm Hg) 152 09/06/2018 [facility] Diastolic (mm Hg) 67 09/06/2018 [facility] BMI Calculated 21.66 09/05/2018 [facility] Height 180.34 cm 09/05/2018 [facility] Weight 70.455 09/05/2018 [facility] Temperature Oral (F) 97.9 F 09/05/2018 [facility] Heart Rate 82 09/05/2018 [facility] Respitory Rate 18 09/05/2018 [facility] Systolic (mm Hg) 143 09/05/2018 [facility] Diastolic (mm Hg) 59 09/05/2018 [facility] Height 180.34 cm 02/17/2018 [facility] Weight 76.364 02/17/2018 [facility] BMI Calculated 23.48 02/17/2018 [facility] Heart Rate 67 02/17/2018 [facility] Systolic (mm Hg) 130 02/17/2018 [facility] Diastolic (mm Hg) 69 02/17/2018 [facility] Temperature Oral (F) 97.7 F 02/17/2018 [facility] Respitory Rate 18 02/17/2018 [facility] Respitory Rate 17 02/17/2018 [facility] Systolic (mm Hg) 136 02/17/2018 [facility] Diastolic (mm Hg) 69 02/17/2018 [facility] Respitory Rate 19 02/17/2018 [facility] Temperature Oral (F) 98.6 F 02/17/2018 [facility] Heart Rate 70 02/17/2018 [facility] Respitory Rate 18 02/17/2018 [facility] Systolic (mm Hg) 113 02/17/2018 [facility] Diastolic (mm Hg) 60 02/17/2018 [facility] BMI Calculated 26 02/17/2018 [facility] Height 180.34 cm 02/17/2018 [facility] Weight 84.545 [...] 05/16/2016 [facility] Systolic (mm Hg) 120 05/16/2016 [facility] Diastolic (mm Hg) 66 05/16/2016 [facility] Respitory Rate 20 05/10/2016 [facility] Systolic (mm Hg) 123 05/10/2016 [facility] Diastolic (mm Hg) 64 05/10/2016 [facility] Temperature Oral (F) 98.1 F 05/10/2016 [facility] Weight 79.545 05/10/2016 [facility] Temperature Oral (F) 98.0 F 05/10/2016 [facility] Heart Rate 84 05/10/2016 [facility] Respitory Rate 14 05/10/2016 [facility] Systolic (mm Hg) 136 05/10/2016 [facility] Diastolic (mm Hg) 77 05/10/2016 [facility] BMI Calculated 24.46 05/10/2016 [facility] Height 180.34 cm 05/10/2016 [facility] Encounters Location Location Details Encounter Type Encounter Number Reason For Visit Attending Provider ADM Date DC Date Status Source [facility] Emergency [id number] Angelia Nguyen 05/09/2016 05/10/2016 [facility] Emergency [id number] Elian Arnold 05/16/2016 05/17/2016 [facility] Emergency [id number] Jd Connolly 05/19/2016 05/19/2016 [facility] Emergency [id number] Cassie Mahoney 07/26/2017 07/27/2017 [facility] Emergency [id number] Anthony Cardenas 02/17/2018 02/17/2018 [facility] Emergency [id number] William Kady 02/17/2018 02/18/2018 [facility] [place] Orders Only [id number] Irvin Pimentel MD 03/08/2018 [facility] ASK YOUR NURSE PROGRAM Nurse Triage [id number] Edwina Siu RN 03/18/2018 [facility] Same Day Office Visit [id number] Oxana Casanova NP 03/18/2018 03/18/2018 [facility] [place] Office Visit [id number] Lolly Julien MD 03/22/2018 03/22/2018 [facility] [place] Lab Appointment [id number] Irvin Pimentel MD 03/22/2018 03/22/2018 [facility] Same Day Same Day [id number] Sunita Chen PA 03/28/2018 03/28/[address] [facility] [address] Scan [place] Ancillary Procedure [id number] 04/03/2018 04/03/2018 [facility] Outpatient Imaging [facility] Outpt Diag Services [id number] Shay Garzon 04/03/2018 04/04/[address] [facility] [place] Outpt Diag Services [id number] Shay Garzon 04/03/2018 04/04/2018 [facility] [place] Refill [id number] Irvin Pimentel MD 04/10/2018 [facility] Outpatient [id number] Shay Garzon 04/11/2018 04/11/2018 [facility] [place] Orders Only [id number] Irvin Pimentel MD 04/12/2018 [facility] [place] Office Visit [id number] Irvin Pimentel MD 04/12/2018 04/12/2018 [facility] Outpatient [id number] Shay Garzon 04/15/2018 04/16/2018 [facility] Geriatric [facility] Telephone [id number] Magaly Ingram 04/18/2018 [facility] LABORATORY Telephone [id number] Magaly Ingram 04/18/2018 [facility] [place] Telephone [id number] Laurie Cueva RN 04/23/2018 [facility] [place] Refill [id number] Laurie Cueva RN 04/23/2018 [facility] [place] Telephone [id number] 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 [employer] 04/25/2018 [facility] [place] Telephone [id number] Cecy Cruz RN 04/25/2018 [facility] [place] Refill [id number] Vick Alegria MD 04/27/2018 [facility] Outpatient [id number] Shay Garzon 05/15/2018 05/16/2018 [facility] Telephone [id number] Leo Mcgill Licensed Clinical [employer] Laminator 05/21/2018 [facility] [place] Orders Only [id number] Vick Alegria MD 05/23/2018 [facility] [place] OP Therapy Patients [id number] Shay Garzno 05/23/2018 06/22/2018 [facility] [place] Office Visit [id number] Irvin Pimentel MD 05/23/2018 05/23/2018 [facility] Ophthalmology/Optometry [facility] Office Visit [id number] Kat Garcia OD 05/30/2018 05/30/2018 [facility] [place] Clinical Case Mgt [id number] Jimena Avila 06/14/2018 [facility] [place] Office Visit [id number] Vick Alegria MD 06/14/2018 06/20/2018 [facility] [place] Orders Only [id number] Vick Alegria MD 06/17/2018 [facility] [place] Clinical Case Mgt [id number] Robina Arzola RN 06/17/2018 [facility] [place] Clinical Case Mgt [id number] Robina Arzola RN 06/26/2018 [facility] [place] Clinical Case Mgt [id number] Robina Arzola RN 07/03/2018 [facility] [place] Refill [id number] Cecy Cruz RN 07/12/2018 [facility] [place] Telephone [id number] Donna Ireland RN 07/18/2018 [facility] Travel [id number] 07/24/2018 [facility] [place] Office Visit [id number] Irvin Pimentel MD 07/24/2018 07/25/2018 [facility] [place] Orders Only [id number] Vick Alegria MD 08/08/2018 [facility] Travel [id number] 08/08/2018 [facility] [place] Office Visit [id number] Vick Alegria MD 08/08/2018 08/08/2018 [facility] [place] Telephone [id number] Robina Arzola RN 08/19/2018 [facility] Emergency [id number] Cat 09/05/2018 09/06/2018 [facility] Travel [id number] 09/30/2018 [facility] [place] Office Visit [id number] Irvin Pimentel MD 09/30/2018 09/30/2018 [facility] [place] Clinical Case Mgt [id number] Robina Arzola RN 10/10/2018 [facility] Travel [id number] 10/21/2018 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 [place] Clinical Case Mgt [id number] Robina Arzola RN 11/11/2018 [facility] Travel [id number] 11/11/2018 [facility] [place] Office Visit [id number] Vick Alegria MD 11/11/2018 11/12/2018 [facility] Radiology [place] Ancillary Procedure [id number] Vick Alegria MD 11/11/2018 11/11/2018 [facility] [place] Clinical Case Mgt [id number] Robina Arzola RN 11/12/2018 [facility] [place] Telephone [id number] Robina Arzola RN 11/13/2018 [facility] [place] Office Visit [id number] Irvin Pimentel MD 11/20/2018 11/20/2018 [facility] [place] Telephone [id number] Irvin Pimentel MD 11/28/2018 [facility] [place] Orders Only [id number] Irvin Pimentel MD 11/28/2018 [facility] ASK YOUR NURSE PROGRAM Nurse Triage [id number] Michell Grey RN 11/30/2018 [facility] [place] Refill [id number] Lissa Toledo RN 12/03/2018 [facility] [place] Telephone [id number] Rochellegregorio Villedaa 12/04/2018 [facility] [place] Telephone [id number] Rochelle Mclean 12/05/2018 [facility] [place] Orders Only [id number] Irvin Pimentel MD 12/24/2018 [facility] Travel [id number] 12/25/2018 [facility] [place] Telephone [id number] Laurie Cueva RN 12/25/2018 [facility] [place] Outpt Diag Services [id number] Shay Garzon 01/03/2019 01/04/2019 [facility] [place] Refill [id number] Irvin Pimentel MD 01/09/2019 [facility] Travel [id number] 01/15/2019 [facility] [place] Office Visit [id number] Vick Alegria MD 01/15/2019 01/29/2019 [facility] Encounter [id number] Irvin Pimentel MD 01/21/2019 01/22/2019 [facility] Radiology [facility] Hospital Encounter [id number] Vick Alegria MD 01/23/2019 01/24/2019 [facility] [place] Office Visit [id number] Irvin Pimentel MD 01/30/2019 02/05/2019 [facility]MR [place] OP Therapy Patients [id number] Shay Garzon 02/03/2019 03/05/2019 [facility] [place] Travel [id number] 02/04/2019 [facility] Mammography [place] Ancillary Procedure [id number] Irvin Pimentel MD 02/04/2019 02/04/2019 [facility] Discharged Inpatient (obs) [id number] TANJA WISEMAN MD 02/15/2019 02/17/2019 [facility] [place] Refill [id number] Irvin Pimentel MD 02/18/2019 [facility] GI Lab Services [facility] Telephone [id number] Dunia Edwards 02/25/2019 [facility] [place] Orders Only [id number] Jeffry Han MD 02/27/2019 [facility] [place] Office Visit [id number] Irvin Pimentel MD 02/27/2019 02/27/2019 [facility] [place] Refill [id number] Irvin Pimentel MD 03/03/2019 [facility] Registered Emergency Room [id number] DIANA GANN MD 03/06/2019 [facility] Outpatient [id number] Shay Garzon 03/07/2019 03/08/2019 [facility] Outpatient Imaging - [place] Outpt Diag Services [id number] Kamlesh Vegas 03/19/2019 03/20/[address] [place] [facility] Day Surgery [id number] Kamlesh [place] 03/21/2019 03/21/2019 [facility] Travel [id number] 03/27/2019 [facility] [place] Office Visit [id number] Irvin Pimentel MD 03/27/2019 03/27/2019 [facility] Procedures Procedure Code Date Perfomer Comments Source Magnetic resonance angiography of neck without then with contrast [id number] 02/17/2019 [facility] Magnetic resonance imaging of brain without contrast [id number] 02/16/2019 [facility] Computed tomography of lumbar spine without contrast [id number] 02/15/2019 [facility] X-ray of chest, single view [id number] 02/15/2019 [facility] MAMMOGRAM BILAT SCREEN DIGITAL [id number] 02/04/2019 [facility] LIPID PROFILE [id number] 01/30/2019 [facility] BONE DENSITY (DUAL PHOTON) 51587 01/23/2019 [facility] MRI SHOULDER JOINT W/O CONTRAST 12547 01/22/2019 [facility] UREA NITROGEN/CREATININE 09822 12/25/2018 [facility] CREATININE 18662 11/21/2018 [facility] XRAY SHOULDER 2 VIEWS [place] [address]282 11/11/2018 [facility] Computed tomography of brain without radiopaque contrast [id number] 11/10/2018 [facility] Computed tomography of cervical spine without contrast [id number] 11/10/2018 [facility] CBC/DIFF 28920 07/24/2018 [facility] COMPREHENSIVE METABOLIC PANEL 77604 07/24/2018 [facility] HEMOGLOBIN A1C 21576 07/24/2018 [facility] URIC ACID 42147 07/24/2018 [facility] THYROID STIMULATING HORMONE (TSH) 32413 07/24/2018 [facility] URINALYSIS [id number] 04/13/2018 [facility] UA MICROSCOPIC 89246 04/13/2018 [facility] URINE CULTURE 74286 04/13/[address] [facility] [address] HEAD W/O CONTRAST 57925 04/03/2018 [facility] 12 LEAD EKG 53626 03/22/2018 [facility] URINALYSIS 75792 03/22/2018 [facility] BASIC METABOLIC PANEL 85207 03/22/2018 [facility] LIVER PROFILE [id number] 03/22/2018 [facility] Hip arthroplasty<sup>1</sup> [id number] both hips [place] [place] [place], [facility] Assessment and Plan No Data Provided for This Section Plan of Care Plan of Care Date Source Breast Cancer Scrn (Yearly) 02/05/2020 [facility] Upcoming EncountersDateTypeSpecialtyCare TeamDescription 06/10/2019 Office Visit Ophthalmology Referral#[id number] [facility] DateLast DoneComments Colonoscopy 5yr 01/15/2019 01/15/2014 Breast Cancer Scrn (Yearly) 02/05/2020 02/04/2019, 01/29/2018 (Previously completed - External), 04/06/2016, Additional history exists IMM Pneumococcal Age 65 and Up Completed 03/22/2015 03/29/2019 [facility] Upcoming EncountersDateTypeSpecialtyCare TeamDescription 03/27/2019 Office Visit Family Practice Irvin Pimentel MD[address] [place] [address] [phone] (Fax) E.R. follow up lab results 06/10/2019 Office Visit Ophthalmology Referral#[id number] [facility] DateLast DoneComments Colonoscopy 5yr 01/15/2019 01/15/2014 Breast Cancer Scrn (Yearly) 02/05/2020 02/04/2019, 01/29/2018 (Previously completed - External), 04/06/2016, Additional history exists IMM Pneumococcal Age 65 and Up Completed 03/22/2015 03/21/2019 [facility] Upcoming EncountersDateTypeSpecialtyCare TeamDescription 03/21/2019 Office Visit Psychology Chel Menendez M[address] [facility] [place] [address] [phone] (Fax) 03/27/2019 Office Visit Family Practice Irvin Pimentel MD[address] [place], [place] [phone] E.R. follow up lab results 06/10/2019 Office Visit Ophthalmology Referral#[id number] [facility] DateLast DoneComments Colonoscopy 5yr 01/15/2019 01/15/2014 Breast Cancer Scrn (Yearly) 02/05/2020 02/04/2019, 01/29/2018 (Previously completed - External), 04/06/2016, Additional history exists IMM Pneumococcal Age 65 and Up Completed 03/22/2015 03/17/2019 [facility] Upcoming EncountersDateTypeSpecialtyCare TeamDescription 03/21/2019 Office Visit Chel Reyes[address] [facility] [phone] 03/27/2019 Office Visit Family Practice Irvin Pimentel MD[address] [place] [address] [phone] E.R. follow up lab results 06/10/2019 [id number] DateLast DoneComments Colonoscopy 5yr 01/15/2019 01/15/2014 Breast Cancer Scrn (Yearly) 02/05/2020 02/04/2019, 01/29/2018 (Previously completed - External), 04/06/2016, Additional history exists IMM Pneumococcal Age 65 and Up Completed 03/22/2015 03/07/2019 [facility] Discharge Date 03/06/19 1:25pm Disposition HOME, SELF-CARE Condition at Discharge Stable Instructions/Education Provided Back Pain Fractures - Compression Forms Provided Work/School Excuse Prescriptions See Medication Section Referrals Dr. JOHN Alegria,ELIES BLACKWELL Address: [address] [place] [address] [place] [address] Additional Instructions/Education 1. follow up wiht your pcp/orthopedic doctor in 1-2 days wihtout fail 2. return to ed as needed 3. tylenol and motrin 4. use walker 03/06/2019 [facility] Colonoscopy 5yr 01/15/2019 [facility] Social History Social History Date Source Tobacco UseTypesPacks/DayYears UsedDate Never Smoker Smokeless Tobacco: Never Used Tobacco Cessation: Counseling Given: No Alcohol UseDrinks/Weekoz/WeekComments Yes Food InsecurityAnswerDate Recorded Within the past 12 months, you worried that your food would run out before you got money to buy more. Never true 02/05/2018 Within the past 12 months, the food you bought just didn't last and you didn't have money to get more. Never true 02/05/2018 Sex Assigned at BirthDate Recorded Not on file Job Start DateOccupationIndustry Not on file Not on file Not on file Travel HistoryTravel StartTravel End No recent travel history available. 03/28/2019 [facility] Smoking Status Start Date Stop Date Never Smoker 03/06/2019 [facility] Social History TypeResponse Smoking Status Former smoker; Type: Cigarettes; Previous treatment: None; Ready to change: No; Concerns about tobacco use in household: No; Exposure to Tobacco Smoke None; Cigarette Smoking Last 365 Days No; Reg Smoking Cessation Counseling No entered on: 09/05/18 09/06/2018 [facility] Social History TypeResponse Smoking Status Former smoker; Type: Cigarettes; Previous treatment: None; Ready to change: No; Concerns about tobacco use in household: No; Exposure to Tobacco Smoke None; Cigarette Smoking Last 365 Days No; Reg Smoking Cessation Counseling No entered on: 09/05/18 09/06/2018 [facility] Social History TypeResponse Smoking Status Former smoker; [...] Cessation Counseling No entered on: 09/05/18 09/06/2018 [facility] Social History TypeResponse Smoking Status Former smoker; Type: Cigarettes; Previous treatment: None; Ready to change: No; Concerns about tobacco use in household: No; Exposure to Tobacco Smoke None; Cigarette Smoking Last 365 Days No; Reg Smoking Cessation Counseling No entered on: 09/05/18 09/06/2018 [facility] Family History Value Date Source Medical HistoryRelationNameComments Cancer Brother colon cancer Cancer Father prostate Psychiatry Father Arthritis Mother Cancer Mother breast Hypertension Paternal Grandfather Stroke Paternal Grandfather Arthritis Sister RelationNameStatusComments Brother Alive 3 Brother Father (Age 57) Maternal Grandfather Maternal Grandmother Mother (Age 70) Paternal Grandfather Paternal Grandmother Sister Alive 2 Sister Son Alive Son (Age 21) 03/29/2019 [facility] Medical HistoryRelationNameComments Cancer Brother colon cancer Cancer Father prostate Psychiatry Father Arthritis Mother Cancer Mother breast Hypertension Paternal Grandfather Stroke Paternal Grandfather Arthritis Sister RelationNameStatusComments Brother Alive 3 Brother Father (Age 57) Maternal Grandfather Maternal Grandmother Mother (Age 70) Paternal Grandfather Paternal Grandmother Sister Alive 2 Sister Son Alive Son (Age 21) 03/21/2019 [facility] Medical HistoryRelationNameComments Cancer Brother colon cancer Cancer Father prostate Psychiatry Father Arthritis Mother Cancer Mother breast Hypertension Paternal Grandfather Stroke Paternal Grandfather Arthritis Sister RelationNameStatusComments Brother Alive 3 Brother Father (Age 57) Maternal Grandfather Maternal Grandmother Mother (Age 70) Paternal Grandfather Paternal Grandmother Sister Alive 2 Sister Son Alive Son (Age 21) 03/17/2019 [facility] Medical HistoryRelationNameComments Cancer Brother colon cancer Cancer Father prostate Psychiatry Father Arthritis Mother Cancer Mother breast Hypertension Paternal Grandfather Stroke Paternal Grandfather Arthritis Sister RelationNameStatusComments Brother Alive 3 Brother Father (Age 57) Maternal Grandfather Maternal Grandmother Mother (Age 70) Paternal Grandfather Paternal Grandmother Sister Alive 2 Sister Son Alive Son (Age 21) 03/07/2019 [facility] Advance Directives Order Name Results Value Date Source Advance Directives Advance Directives Latest Code Status on FileCode StatusDate ActivatedDate InactivatedComments Full Code 09/13/2010 2:58 PM 09/17/2010 6:28 PM 03/29/2019 [facility] Advance Directives Advance Directives Latest Code Status on FileCode StatusDate ActivatedDate InactivatedComments Full Code 09/13/2010 2:58 PM 09/17/2010 6:28 PM 03/21/2019 [facility] Advance Directives Advance Directives Latest Code Status on FileCode StatusDate ActivatedDate InactivatedComments Full Code 09/13/2010 2:58 PM 09/17/2010 6:28 PM 03/17/2019 [facility] Advance Directives Advance Directives Latest Code Status on FileCode StatusDate ActivatedDate InactivatedComments Full Code 09/13/2010 2:58 PM 09/17/2010 6:28 PM 03/07/2019 [facility] Advance Directives Advance Directives Directive Response Recorded Date/Time Does the patient have an advance directive? No 02/15/19 7:56pm If yes, is advance directive on file with [facility]? No 02/15/19 7:56pm If not on file with [facility] will patient provide a copy? No 02/15/19 7:56pm Do you have a Directive to Physician? No 03/06/19 11:23am Do you have a Medical Power of Incoming Freight Clerk? No 03/06/19 11:23am Do you have an out of hospital Do Not Resuscitate Order? No 03/06/19 11:23am Do you have any special needs we should be aware of? No 03/06/19 11:23am Do you have a support person here with you today? Yes 03/06/19 11:23am Did patient receive Notice of Privacy Practices? Yes 03/06/19 11:23am Did patient receive patient rights and responsibilities? Yes 03/06/19 11:23am 03/06/2019 [facility] Functional Status No Data Provided for This Section
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
--- OUTSIDE RECORDS SUMMARY | 2019-03-31 08:58 | XMS REPORT | Clinical Summary ---
Author Author [facility] Organization [facility] Address Unknown Phone Unavailable Care Team Providers Care Core Shaper Top Name Role Phone Irvin Pimentel MD PCP [...] water to the solutionIndications: fill karen (4 [facility] health care, liters) and Family history of [...] scalp - s/p fall 07/[address] [facility] CT head wnl and 09/06/2017 CT [...] Jeffry Han MD Stress 02/27/2019 Orders Only [facility] Dunia Edwards Consult (outside GI [...] pain 01/09/2019 Refill Family Practice 12/25/2018 Travel Laurie Cueva RN Other (appointment request) 12/25/2018 Telephone Irvin Pimentel MD Chronic left shoulder pain (Primary Dx) 12/24/2018 Orders Only [facility] Rochelle Mclean Home Health Needs 12/05/2018 Telephone Social Work Rochelle Mclean Senior Care Manager 12/04/2018 Telephone Social Work Lissa Toledo RN Chronic vertigo; Unsteady gait; Ataxia ; Other fatigue 12/03/2018 Refill [facility] Michell Grey RN 11/30/2018 Nurse Triage Irvin Pimentel MD Results 11/28/2018 Telephone [facility] Irvin Pimentel MD Chronic left shoulder pain (Primary Dx) 11/28/2018 Orders Only [facility] Irvin Pimentel MD Chronic left shoulder pain (Primary Dx); Multiple falls; Asymptomatic menopausal state ; Postmenopause; Abnormality of gait; Hip pain, bilateral; Weakness of both lower extremities; Impaired mobility and ADLs; Chronic vertigo 11/20/2018 Office Visit [facility] Robina Arzola RN Pre-clinic Chart Review; Home [...] for 1 wk, Group counseling 3x/wk at [facility] ; Hip pain, bilateral; Abnormality of gait; [...] had flu with copd exacerbation was at [facility] for 3 days (Primary Dx); Chronic bronchitis, unspecified chronic bronchitis type 09/30/2018 Office Visit Family Practice 09/30/2018 Robina Womack RN Pre-clinic Chart Review; Home Health Needs 08/19/2018 Telephone Social Work Vick Alegria MD Bunion (Primary Dx); Chronic gout of right foot, unspecified cause 08/08/2018 Office Visit [facility] Vick Alegria MD Bunion 08/08/2018 Orders Only [facility] 08/08/2018 Irvin Joshua MD Joad, [...] Impaired mobility and ADLs 06/17/2018 Orders Only [facility] Robina Arzola RN 06/17/2018 Clinical Case Social Work Mgt Vick Alegria MD Accident due to mechanical fall without injury, subsequent encounter (Primary Dx); Impaired mobility and ADLs 06/14/2018 Office Visit Family Practice Ausitn Jimenajerry Mckenzie 06/14/2018 Clinical Case Social Work Mgt Kat Garcia OD 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); Age-related nuclear cataract, bilateral; Bilateral keratitis sicca; Refractive error 05/30/2018 Office Visit Ophthalmology Irvin Pimentel MD Joad, Sabaa S, MD Status post total replacement of right hip (Primary Dx); Tremor; Vision problem; Need for influenza vaccination 05/23/2018 Office Visit [facility] Vick Alegria MD Vision problem 05/23/2018 Orders Only [facility] Leo Mcgill, Licensed Clinical Senior Care Manager Geriatric Patient 05/21/2018 Telephone Gerontology Vick Alegria MD Dyslipidemia 04/27/2018 Refill [facility] Magaly Heck LVN Medications 04/25/2018 Telephone [facility] Cecy Cruz RN Medication Follow Up 04/25/2018 Telephone [facility] Laurie Cueva RN Other (returning patient call) 04/23/2018 Telephone Laurie Cueva RN DDD (degenerative disc disease), lumbar: cont pain Home health with PT and OT and pain control; Hip pain, bilateral: continue pain control; Abnormality of gait 04/23/2018 Refill [facility] Magaly Ingram Medication Refill 04/18/2018 Telephone Gerontology Magaly Ingram 04/18/2018 Telephone Lab Irvin Pimentel MD Multiple falls (Primary Dx); Abnormality of gait and mobility ; Osteoarthritis of right knee, unspecified osteoarthritis type; Dysuria 04/12/2018 Office Visit [facility] Irvin Pimentel MD Multiple falls 04/12/2018 Orders Only Family Practice Irvin Pimentel MD Essential hypertension 04/10/2018 Refill [facility] Multiple falls; Chronic vertigo; Unsteady gait; Ataxia ; Other fatigue 04/03/2018 Ancillary Radiology Procedure Sunita Chen PA Scott, Anita C, NP Dental infection (Primary Dx); Adverse effect of drug, initial encounter; Diarrhea, unspecified type 03/28/2018 Same Day Family Practice Irvin Pimentel MD Multiple falls; Chronic vertigo; Unsteady gait; Ataxia ; Other fatigue 03/22/2018 Lab Appointment Lab Lolly Julien MD Onyenekwe, Chinedu T, MD Multiple falls (Primary Dx); Chronic vertigo; Unsteady gait; Ambulates with cane; Ataxia ; Other fatigue 03/22/2018 Office Visit [facility] Oxana Casanova NP Telufusi, Abimbola R, PA Dentalgia (Primary Dx); Diarrhea, unspecified type 03/18/2018 Office Visit [facility] Edwina Siu RN 03/18/2018 Nurse Triage Irvin Pimentel MD Physical deconditioning (Primary Dx) 03/08/2018 Orders Only Family Practice after 03/06/2018 Immunizations Name Administration Dates Next Due Herpes [...] Team Description Date Type Specialty Chel Menendez [address] [place] [address] [id number] [place] [address] 03/21/2019 Office Visit Psychology Irvin Pimentel MD [address] [place] [address] [id number] E.R. follow up lab results 03/27/2019 Office Visit Family Practice Referral#[id number] 06/10/2019 Office Visit Ophthalmology Health Maintenance Due [...] Routine 07/24/2018 Chronic gout involving 11:25 AM MOTHERS HELPER toe of right foot without tophus, unspecified cause THYROID STIMULATING Routine 07/24/2018 Preventative health care HORMONE (TSH) 11:25 AM MOTHERS HELPER HEMOGLOBIN A1C Routine 07/24/2018 Preventative health care 11:25 AM MOTHERS HELPER COMPREHENSIVE METABOLIC Routine 07/24/2018 Preventative health care PANEL 11:25 AM MOTHERS HELPER CBC/DIFF Routine 07/24/2018 Preventative health care 11:25 AM MOTHERS HELPER UA MICROSCOPIC Routine 04/12/2018 3:31 PM CDT [...] vertigo Unsteady gait Ataxia Other fatigue after 03/06/2018 Results * MAMMOGRAM BILAT SCREEN DIGITAL (02/04/2019 9:11 AM CDT) Specimen Impressions Performed At IMPRESSION: BENIGN SMS There is no mammographic evidence of malignancy. A 1 year screening mammogram is recommended. This document has been electronically signed. Mariela Hutchinson M.D. ks/:02/04/2019 09:28:17 Senior Asset Manager: Marcus Herring Sr. Soil Scientist, [facility] letter sent: Benign Exam Mammogram BI-RADS: 2 Benign G0202 Z85.3 Narrative Performed At #[id number] - MAMMOGRAM BILAT SCREEN DIGITAL SMS BILATERAL DIGITAL SCREENING MAMMOGRAM WITH CAD: 02/04/2019 CLINICAL: Screening for malignancy. Comparison is made to exams dated:03/31/2015 and 04/06/2016 [facility]. There are scattered fibroglandular elements in both breasts that could obscure a lesion on mammography. Current study was also evaluated with a Computer Aided Detection (CAD) system. No new significant masses, calcifications, or other findings are seen in either breast. Procedure Note Interface, Rad/Mammog In - 02/04/2019 1:03 PM CDT #[id number] - MAMMOGRAM BILAT SCREEN DIGITAL BILATERAL DIGITAL SCREENING MAMMOGRAM WITH CAD: 02/04/2019 CLINICAL: Screening for malignancy. Comparison is made to exams dated: 03/31/2015 and 04/06/2016 [facility]. There are scattered fibroglandular elements in both [...] signed. Mariela Hutchinson M.D. ks/:02/04/2019 09:28:17 Senior Asset Manager: Marcus Herring Sr. Soil Scientist, [facility] letter sent: Benign Exam Mammogram BI-RADS: 2 Benign G0202 Z85.3 Performing Organization Address City/[facility] Phone Number SMS * LIPID PROFILE (01/30/2019 [...] in a fasting state. Performing Organization Address [facility] Phone Number [facility] [address] [place] [address] * BONE DENSITY (DUAL PHOTON) (01/23/2019 11:08 AM CDT) Specimen Impressions Performed At IMPRESSION: SMS Persistent mild osteopenia in left radius. There is no significant interval change since 2017 Signed By: Barry Morales MD, 01/23/2019 11:50 AM Narrative Performed At EXAM: [facility] EXAM: DEXA INDICATION: Osteopenia for followup. COMPARISON: 02/12/2017. TECHNIQUE: The patient underwent bone mineral densitometry using Graematter Discovery SL dual energy x-ray absorptiometry (DEXA).T-score [...] MD, 01/22/2019 11:28 AM Performing Organization Address City/State/[facility] Phone Number SMS * UREA NITROGEN/CREA (12/25/2018 1:29 PM CDT) BUN 19 7 - 25 mg/dL BT MAIN-STATION 1 Creatinine 0.80 0.6 - 1.2 mg/dL BT MAIN-STATION 1 GFR, Estimated >60 mL/min/1.73 m2 BT MAIN-STATION 1 eGFR If Africn >60 mL/min/1.73 m2 BT MAIN-STATION Am 1 Specimen Other (Specify in Comments) Performing Organization Address City/[facility] Phone Number MISYS BT MAIN-STATION 1 * CREATININE (11/21/2018 11:04 AM CDT) Only the most recent of 2 results within the time period is included. Creatinine 0.90 0.6 - 1.2 mg/dL BT MAIN-STATION 1 GFR, Estimated >60 mL/min/1.73 m2 BT MAIN-STATION 1 eGFR If Africn >60 mL/min/1.73 m2 BT MAIN-STATION Am 1 Specimen Blood Performing Organization Address City/[facility] Phone Number MISYS BT MAIN-STATION 1 * [...] DO, 11/11/2018 4:14 PM Performing Organization Address City/State/[facility] Phone Number SMS * HEMOGLOBIN A1C (07/24/2018 11:25 AM MOTHERS HELPER) Hemoglobin A1c 5.8 4.3 - 6.1 % BT DIAGNOSTIC IMMUNOLOGY Est Average 119.8 mg/dL BT DIAGNOSTIC Gluc IMMUNOLOGY Specimen Blood Performing Organization Address [facility] Phone Number MISYS BT DIAGNOSTIC IMMUNOLOGY * COMPREHENSIVE METABOLIC PANEL(DBIL NOT INCLUDED) (07/24/2018 11:25 AM MOTHERS HELPER) Albumin 4.1 3.7 - 5.3 g/dL BT [...] MAIN-STATION 1 Specimen Blood Performing Organization Address [facility] Phone Number MISYS BT MAIN-STATION 1 * TSH (07/24/2018 11:25 AM MOTHERS HELPER) Only the most recent of 2 results within the time period is included. TSH 1.65 0.57 - 3.74 uIU/mL BT MAIN-STATION 1 Specimen Blood Performing Organization Address [facility] Phone Number MISYS BT MAIN-STATION 1 * URIC ACID (07/24/2018 11:25 AM MOTHERS HELPER) Uric acid 7.1 (H) 2.3 - 6.6 mg/dL BT MAIN-STATION 1 Specimen Blood Performing Organization Address [facility] Phone Number MISYS BT MAIN-STATION 1 * CBC/DIFF (07/24/2018 11:25 AM MOTHERS HELPER) WBC 7.1 4.5 - 11.0 K/uL BT [...] (H) 0.24 - 0.36 K/uL BT MAIN-STATION tetlin) 2 Eos (Absolute) 0.14 0.04 - 0.36 K/uL BT MAIN-STATION 2 Baso (Absolute) 0.05 0.01 - 0.08 K/uL BT MAIN-STATION 2 Immature Grans 0.03 0.00 - 0.03 K/uL BT MAIN-STATION (Abs) 2 Specimen Blood Performing Organization Address City/[facility]/Zipcode Phone Number MISYS BT MAIN-STATION 2 * UA MICROSCOPIC (04/12/2018 3:31 PM CDT) WBC >50 (H) 0 - 5 /HPF [facility] RBC 11-21 0 - 4 /HPF [facility] Epithelial Cell <1 /HPF [facility] Bacteria Moderate [facility] Specimen Performing Organization Address City/[facility]/Zipcode Phone Number MISYS [facility] * UA CHEMISTRIES (04/12/2018 3:31 PM CDT) Only the most recent of 2 results within the time period is included. Color Yellow [facility] Clarity Clear [facility] Specific 1.010 1.001 - 1.035 [facility] [place] pH 6.5 5 - 8 [facility] Protein Negative NEG [facility] Glucose Negative NEG [facility] Ketones Negative NEG [facility] Bilirubin Negative NEG [facility] Nitrate Negative NEG [facility] Urobilinogen,Se 0.2 0.2 - 1.0 EU/dL [facility] mi-Qn Leukocyte 2+ (A) NEG [facility] Occult Blood 2+ (A) NEG [facility] Specimen Urine Performing Organization Address City/[facility] Phone Number VINAY [facility] * URINE CULTURE (04/12/2018 3:20 PM CDT) Only the most recent of 2 results within the time period is included. Spec Urine [facility] Description Order Comments None [facility] Culture 1,000-10,000 CFU/ml BT MICROBIOLOGY Streptococcus species Report Status Final 04/14/2018 BT MICROBIOLOGY Specimen Urine - Voided, urine Performing Organization Address [facility] Phone Number VINAY [facility] BT MICROBIOLOGY [...] MD, 04/03/2018 11:04 AM Performing Organization Address City/[facility] Phone Number SMS * 12 LEAD EKG (03/22/2018 9:23 AM CDT) 12 LEAD EKG FOR [facility] Test Date:2018-03-22 Pat Name: JOSE MIGUEL Vega partment: Room: Gender: F 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 Measurements Intervals [facility] Rate: 64 P:62 TX: 160 QRS: 42 QRSD: 92 T:74 QT: 427 QTc:441 Interpretive Statements SINUS RHYTHM Electronically Signed On 03-22-18 10:20:40 CDT by Laurence Hughes M.D. Specimen Performing Organization Address [facility] Phone Number SMS * LIVER PROFILE (03/22/2018 [...] MAIN-STATION 1 Specimen Blood Performing Organization Address [facility] Phone Number MISYS BT MAIN-STATION 1 * [...] Phone Number MISYS BT MAIN-STATION 1 after 03/06/2018 Insurance Type Payer Benefit Subscriber ID Effective Phone Address Plan / Dates Group MEDICARE MEDICARE xxxxxxxxxxx 2010-P [phone] [id number] [place] [address] Advance Directives Date Inactivated Comments Code Status Date Activated 09/17/2010 6:28 PM Full Code 09/13/2010 2:58 PM
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
--- OUTSIDE RECORDS SUMMARY | 2019-03-31 09:00 | XMS REPORT | Summary of Care ---
Author Author [facility] Organization [facility] Address Unknown Phone Unavailable Encounter HQ Anthonyr_geraldo(FIN) [id number] Date(s): 03/19/19 - 03/19/19 [facility] [place] [address] [place], [place] [address] [phone] Discharge Disposition: Home or Self Care Attending Physician: Kamlesh Vegas MD Referring Physician: Kamlesh Vegas MD Vital Signs No data available for [...]
--- OUTSIDE RECORDS SUMMARY | 2019-03-31 09:00 | XMS REPORT | Clinical Summary ---
Author Author [facility] Organization [facility] Address Unknown Phone Unavailable Care Team Providers Care Mineral Resources Inspector Name Role Phone Irvin Pimentel MD PCP [...] water to the solutionIndications: fill karen (4 [facility] health care, liters) and Family history of colon shake. Drink cancer as directed by your doctor.. Active cyclobenzaprine TAKE 1 TABLET 90 tablet 0 (FLEXERIL) 10 mg BY MOUTH 9 tabletIndications: THREE TIMES Chronic left shoulder DAILY pain NEEDED FOR MUSCLE SPASM Active atorvastatin (LIPITOR) 40 Take 40 mg by 0 mg tablet mouth at bedtime nightly. Active acetaminophen-codeine Take 1 tablet 30 tablet 0 (TYLENOL/CODEINE #3) by mouth 9 300-30 mg per daily as tabletIndications: needed for Chronic low back pain, Pain. unspecified back pain laterality, with sciatica presence unspecified 02/27/2019 Discontinued zolpidem (AMBIEN) 10 mg Take by mouth 0 Tab at bedtime nightly. 11/11/2018 Discontinued Miscellaneous Medical by 1 Each [...] Constipation, unspecified needed for constipation type Constipation. 03/27/2019 Discontinued simvastatin (ZOCOR) 20 mg TAKE 1 TABLET 90 tablet 0 tabletIndications: BY MOUTH ONCE 9 Dyslipidemia DAILY AT BEDTIME NIGHTLY Active Problems Problem Noted Date Vertebral artery [...] scalp - s/p fall 07/22 went to [facility] CT head wnl and 09/06/2017 CT [...] Date Type Specialty Irvin Pimentel MD Chronic low back pain, unspecified back pain laterality, with sciatica presence unspecified (Primary Dx); Frequent falls; Abnormality of gait 03/27/2019 Office Visit Family Practice 03/27/2019 Travel Irvin Pimentel MD Chronic left shoulder pain 03/03/2019 Refill Family Practice Irvin Pimentel MD [place], Indumathi, MD Vertebral artery stenosis, right (Primary Dx); Frequent falls; Peripheral polyneuropathy; Dietary counseling for Above / Below Normal BMI; Exercise counseling for Above Normal BMI Only!; Stress 02/27/2019 Office Visit Family Practice Jeffry Han MD Stress 02/27/2019 Orders Only Family Practice Dunia Edwards Consult (outside GI referral); [...] shoulder pain (Primary Dx) 12/24/2018 Orders Only [facility] Rochelle Mclean Home Health Needs 12/05/2018 Telephone Social Work Rochelle Mclean Tuna Purse Seiner 12/04/2018 Telephone Social Work Lissa Toledo RN Chronic vertigo; Unsteady gait; Ataxia ; Other fatigue 12/03/2018 Refill [facility] Michell Grey RN 11/30/2018 Nurse Triage Irvin Pimentel MD Results 11/28/2018 Telephone [facility] Irvin Pimentel MD Chronic left shoulder pain (Primary Dx) 11/28/2018 Orders Only [facility] Irvin Pimentel MD Chronic left [...] for 1 wk, Group counseling 3x/wk at [facility] ; Hip pain, bilateral; Abnormality of gait; [...] had flu with copd exacerbation was at [facility] for 3 days (Primary Dx); Chronic bronchitis, unspecified chronic bronchitis type 09/30/2018 Office Visit [facility] 09/30/2018 Robina Womack RN Pre-clinic Chart Review; Home Health Needs 08/19/2018 Telephone Social Work Vick Alegria MD Bunion (Primary Dx); Chronic gout of right foot, unspecified cause 08/08/2018 Office Visit [facility] Vick Alegria MD Bunion 08/08/2018 Orders Only [facility] 08/08/2018 Irvin Joshua MD Joad, [...] Impaired mobility and ADLs 06/17/2018 Orders Only [facility] Robina Arzola RN 06/17/2018 Clinical [...] Need for influenza vaccination 05/23/2018 Office Visit [facility] Vick Alegria MD Vision problem 05/23/2018 Orders Only [facility] Leo Mcgill, Licensed Clinical Tuna Purse Seiner Geriatric Patient 05/21/2018 Telephone Gerontology Vick Alegria MD Dyslipidemia 04/27/2018 Refill [facility] Magaly Heck LVN Medications 04/25/2018 Telephone [facility] Cecy Cruz RN Medication Follow Up 04/25/2018 Telephone [facility] Laurie Cueva RN Other (returning patient call) 04/23/2018 Telephone Laurie Cueva RN DDD (degenerative disc disease), lumbar: cont pain Home health with PT and OT and pain control; Hip pain, bilateral: continue pain control; Abnormality of gait 04/23/2018 Refill [facility] Magaly Ingram Medication Refill 04/18/2018 Telephone Gerontology Magaly Ingram 04/18/2018 Telephone Lab Irvin Pimentel MD Multiple falls (Primary Dx); Abnormality of gait and mobility ; Osteoarthritis of right knee, unspecified osteoarthritis type; Dysuria 04/12/2018 Office Visit Family Practice Irvin Pimentel MD Multiple falls 04/12/2018 Orders Only Family Practice Irvin Pimentel MD Essential hypertension 04/10/2018 Refill Family Practice Multiple falls; Chronic vertigo; Unsteady gait; Ataxia ; Other fatigue 04/03/2018 Ancillary Radiology Procedure Sunita Chen, Erna Teague, VANDANA Dental infection (Primary Dx); Adverse effect of drug, initial encounter; Diarrhea, unspecified type 03/28/2018 Same Day Family Practice after 03/28/2018 Immunizations Name Administration Dates Next Due Herpes [...] Signs Reading Time Taken Comments Vital Sign 143/71 03/27/2019 2:30 PM CDT Blood Pressure 85 03/27/2019 2:30 PM CDT Pulse 36.6 C (97.9 F) 03/27/2019 2:30 PM CDT Temperature 18 03/27/2019 2:30 PM CDT Respiratory Rate 98% 03/28/2018 9:48 AM CDT Oxygen Saturation - - Inhaled Oxygen Concentration 77.1 kg (170 lb) 03/27/2019 2:30 PM CDT Weight 180.3 cm (5' 11") 03/27/2019 2:30 PM CDT Height 23.71 03/27/2019 2:30 PM CDT Body Mass Index Plan of Treatment Care Team Description Date Type Specialty Referral#[id number] 06/10/2019 Office Visit Ophthalmology Health Maintenance Due [...] Routine 07/24/2018 Chronic gout involving 11:25 AM MANAGER PIPELINE toe of right foot without tophus, unspecified cause THYROID STIMULATING Routine 07/24/2018 Preventative health care HORMONE (TSH) 11:25 AM MANAGER PIPELINE HEMOGLOBIN A1C Routine 07/24/2018 Preventative health care 11:25 AM MANAGER PIPELINE COMPREHENSIVE METABOLIC Routine 07/24/2018 Preventative health care PANEL 11:25 AM MANAGER PIPELINE CBC/DIFF Routine 07/24/2018 Preventative health care 11:25 AM MANAGER PIPELINE UA MICROSCOPIC Routine 04/12/2018 3:31 PM CDT URINALYSIS Routine 04/12/2018 Multiple falls 3:31 PM CDT URINE CULTURE Routine 04/12/2018 Dysuria 3:20 PM CDT Multiple falls CT HEAD W/O CONTRAST Routine 04/03/2018 Multiple falls 10:36 AM CDT Chronic vertigo Unsteady gait Ataxia Other fatigue after 03/28/2018 Results * MAMMOGRAM BILAT SCREEN DIGITAL (02/04/2019 9:11 AM CDT) Specimen Impressions Performed At IMPRESSION: BENIGN SMS There is no mammographic evidence of malignancy. A 1 year screening mammogram is recommended. This document has been electronically signed. Mariela Hutchinson M.D. ks/:02/04/2019 09:28:17 School Bus Attendant: [employer] School Guidance Counselor, [facility] letter sent: Benign Exam Mammogram BI-RADS: 2 Benign G0202 Z85.3 Narrative Performed At #[id number] - MAMMOGRAM BILAT SCREEN DIGITAL SMS BILATERAL DIGITAL SCREENING MAMMOGRAM WITH CAD: 02/04/2019 CLINICAL: Screening for malignancy. Comparison is made to exams dated:03/31/2015 and 04/06/2016 [facility] There are scattered fibroglandular elements in both breasts that could obscure a lesion on mammography. Current study was also evaluated with a Computer Aided Detection (CAD) system. No new significant masses, calcifications, or other findings are seen in either breast. Procedure Note Interface, Rad/Mammog In - 02/04/2019 1:03 PM CDT #[id number] - MAMMOGRAM BILAT SCREEN DIGITAL BILATERAL DIGITAL SCREENING MAMMOGRAM WITH CAD: 02/04/2019 CLINICAL: Screening for malignancy. Comparison is made to exams dated: 03/31/2015 and 04/06/2016 [facility] There are scattered fibroglandular elements in both [...] electronically signed. Mariela Hutchinson M.D. ks/:02/04/2019 09:28:17 School Bus Attendant: Marcus Herring [employer] School Guidance Counselor, [facility] letter sent: Benign Exam Mammogram BI-RADS: 2 Benign G0202 Z85.3 Performing Organization Address City/State/[facility] Phone Number SMS * LIPID PROFILE (01/30/2019 [...] in a fasting state. Performing Organization Address City/State/Zipcode Phone Number [facility] [address] [place] [address] * BONE DENSITY (DUAL PHOTON) (01/23/2019 11:08 AM CDT) Specimen Impressions Performed At IMPRESSION: SMS Persistent mild osteopenia in left radius. There is no significant interval change since 2016 Signed By: Barry Morales MD, 01/23/2019 11:50 AM Narrative Performed At EXAM: DEXA SMS EXAM: DEXA INDICATION: Osteopenia for followup. COMPARISON: 02/12/2017. TECHNIQUE: The patient underwent bone mineral densitometry using [employer] Discovery SL dual energy x-ray absorptiometry (DEXA).T-score [...] The patient underwent bone mineral densitometry using [employer] Discovery SL dual energy x-ray absorptiometry (DEXA). [...] MD, 01/22/2019 11:28 AM Performing Organization Address City/[facility] Phone Number SMS * UREA NITROGEN/CREA (12/25/2018 1:29 PM CDT) BUN 19 7 - 25 mg/dL BT MAIN-STATION 1 Creatinine 0.80 0.6 - 1.2 mg/dL BT MAIN-STATION 1 GFR, Estimated >60 mL/min/1.73 m2 BT MAIN-STATION 1 eGFR If Africn >60 mL/min/1.73 m2 BT MAIN-STATION Am 1 Specimen Other (Specify in Comments) Performing Organization Address [facility] Phone Number MISYS BT MAIN-STATION 1 * CREATININE (11/21/2018 11:04 AM CDT) Creatinine 0.90 0.6 - 1.2 mg/dL BT MAIN-STATION 1 GFR, Estimated >60 mL/min/1.73 m2 BT MAIN-STATION 1 eGFR If Africn >60 mL/min/1.73 m2 BT MAIN-STATION Am 1 Specimen Blood Performing Organization Address [facility]/[employer] Phone Number MISYS BT MAIN-STATION 1 * XRAY SHOULDER 2 VIEWS MIN (11/11/2018 10:20 AM CDT) Specimen Impressions Performed At IMPRESSION: [facility] Questionable irregular periosteal reaction with subtle bone [...] DO, 11/11/2018 4:14 PM Performing Organization Address [facility] Phone Number SMS * HEMOGLOBIN A1C (07/24/2018 11:25 AM MANAGER PIPELINE) Hemoglobin A1c 5.8 4.3 - 6.1 % BT DIAGNOSTIC IMMUNOLOGY Est Average 119.8 mg/dL BT DIAGNOSTIC Gluc IMMUNOLOGY Specimen Blood Performing Organization Address [facility] Phone Number MISYS BT DIAGNOSTIC IMMUNOLOGY * COMPREHENSIVE METABOLIC PANEL(DBIL NOT INCLUDED) (07/24/2018 11:25 AM MANAGER PIPELINE) Albumin 4.1 3.7 - 5.3 g/dL BT [...] MAIN-STATION 1 Specimen Blood Performing Organization Address [facility] Phone Number MISYS BT MAIN-STATION 1 * TSH (07/24/2018 11:25 AM MANAGER PIPELINE) TSH 1.65 0.57 - 3.74 uIU/mL BT MAIN-STATION 1 Specimen Blood Performing Organization Address City/[facility]/Zipcode Phone Number MISYS BT MAIN-STATION 1 * URIC ACID (07/24/2018 11:25 AM MANAGER PIPELINE) Uric acid 7.1 (H) 2.3 - 6.6 mg/dL BT MAIN-STATION 1 Specimen Blood Performing Organization Address [facility] Phone Number MISYS BT MAIN-STATION 1 * CBC/DIFF (07/24/2018 11:25 AM MANAGER PIPELINE) WBC 7.1 4.5 - 11.0 K/uL BT [...] (Abs) 2 Specimen Blood Performing Organization Address City/[facility]/Zipcode Phone Number MISYS BT MAIN-STATION 2 * UA MICROSCOPIC (04/12/2018 3:31 PM CDT) WBC >50 (H) 0 - 5 /HPF [facility] RBC 11-21 0 - 4 /HPF [facility] Epithelial Cell <1 /HPF [facility] Bacteria Moderate [facility] Specimen Performing Organization Address City/[facility]/Zipcode Phone Number MISYS [facility] * UA CHEMISTRIES (04/12/2018 3:31 PM CDT) Color Yellow [facility] Clarity Clear [facility] Specific 1.010 1.001 - 1.035 [facility] [place] pH 6.5 5 - 8 [facility] Protein Negative NEG [facility] Glucose Negative NEG [facility] Ketones Negative NEG [facility] Bilirubin Negative NEG [facility] Nitrate Negative NEG [facility] Urobilinogen,Se 0.2 0.2 - 1.0 EU/dL [facility] mi-Qn Leukocyte 2+ (A) NEG [facility] Occult Blood 2+ (A) NEG [facility] Specimen Urine Performing Organization Address City/[facility] Phone Number VINAY [facility] * URINE CULTURE (04/12/2018 3:20 PM CDT) Spec Urine [facility] Description Order Comments None [facility] Culture 1,000-10,000 CFU/ml BT MICROBIOLOGY Streptococcus species Report Status Final 04/14/2018 BT MICROBIOLOGY Specimen Urine - Voided, urine Performing Organization Address City/[facility] Phone Number VINAY [facility] BT MICROBIOLOGY [...] Performing Organization Address City/State/Zipcode Phone Number SMS after 03/28/2018 Insurance Type Payer Benefit Subscriber ID Effective Phone Address Plan / Dates Group MEDICARE MEDICARE xxxxxxxxxxx 2010-P [phone] [address] [place] [address] Advance Directives Date Inactivated Comments Code Status Date Activated 09/17/2010 6:28 PM Full Code 09/13/2010 2:58 PM
--- OUTSIDE RECORDS SUMMARY | 2019-03-31 09:00 | XMS REPORT | Summary of Care ---
Author Author [facility] Organization [facility] Address Unknown Phone Unavailable Encounter HQ Alice(FIN) [id number] Date(s): 09/05/18 - 09/06/18 [facility] [address] [place] [address]- Encounter Diagnosis Accidental fall (Discharge Diagnosis) - 09/06/18 Acute back pain (Discharge Diagnosis) - 09/06/18 Low back pain (Final) - 09/12/18 Pain in right hip (Final) - Presence of artificial hip joint, bilateral (Final) - Personal history of nicotine dependence (Final) - Fall on same level, unspecified, initial encounter (Final) - Discharge Disposition: Home or Self [...] Priority : STAT, Start date: 09/05/18 23:39:00 CAM SPECIALIST, Stop date: 09/05/18 23:39:00 CAM SPECIALIST Notes: (Same as: Ativan) Start Date: 09/05/18 Stop Date: 09/06/18 Status: Completed Results Most recent to 1 oldest [Reference Range]: Neutrophils # 3.9 K/CMM [1.5-8.1 K/CMM] (09/05/18 11:11 PM) Lymphocytes # 2.1 K/CMM [1.0-5.5 K/CMM] (09/05/18 11:11 PM) Monocytes # [0.0-0.8 0.6 K/CMM K/CMM] (09/05/18 11:11 PM) Eosinophils # 0.2 K/CMM [0.0-0.5 K/CMM] (09/05/18 11:11 PM) Basophils # [0.0-0.2 0.1 K/CMM K/CMM] (09/05/18 11:11 PM) eGFR 58 mL/min/1.73m2 1 *NA* (09/05/18 11:11 PM) A/G Ratio [0.7-1.6] 1.0 (09/05/18 11:11 PM) Albumin Lvl [3.5-5.0 3.8 g/dL g/dL] (09/05/18 11:11 PM) Alk Phos [39-136 60 unit/L unit/L] (09/05/18 11:11 PM) ALT [0-65 unit/L] 26 unit/L (09/05/18 11:11 PM) AGAP [10.0-20.0 8.8 mEq/L mEq/L] *LOW* (09/05/18 11:11 PM) AST [0-37 unit/L] 37 unit/L (09/05/18 11:11 PM) B/C Ratio [6-25] 10 (09/05/18 11:11 PM) Basophils [0.0-1.0 0.8 % %] (09/05/18 11:11 PM) BUN [7-22 mg/dL] 10 mg/dL (09/05/18:11 PM) Calcium Lvl 9.3 mg/dL [8.5-10.5 mg/dL] (09/05/18 11:11 PM) Chloride Lvl [95-109 108 mEq/L mEq/L] (09/05/1811 PM) CO2 [24-32 mEq/L] 28 mEq/L (09/05/18:11 PM) Creatinine Lvl 0.98 mg/dL [0.50-1.40 mg/dL] (09/05/1811 PM) Eosinophils [0.0-4.0 2.6 % %] (09/05/1811 PM) Globulin [2.7-4.2 4.0 g/dL g/dL] (09/05/1811 PM) Glucose Lvl [70-99 95 mg/dL mg/dL] (09/05/1811 PM) Hct [36.0-48.0 %] 39.3 % (09/05/18 PM) Hgb [12.0-16.0 g/dL] 13.2 g/dL (09/05/1811 PM) Potassium Lvl 3.8 mEq/L [3.5-5.1 mEq/L] (09/05/1811 PM) Lymphocytes 31.0 % [20.0-40.0 %] (09/05/1811 PM) MCH [27.0-31.0 pg] 30.0 pg (09/05/18:11 PM) MCHC [32.0-36.0 33.6 g/dL g/dL] (09/05/1811 PM) MCV [80.0-98.0 fL] 89.4 fL (09/05/18 11:11 PM) Monocytes [2.0-12.0 8.9 % %] (09/05/18 11:11 PM) MPV [7.4-10.4 fL] 9.0 fL (09/05/18 11:11 PM) Sodium Lvl [135-145 141 mEq/L mEq/L] (09/05/18 11:11 PM) Platelet [133-450 265 K/CMM K/CMM] (09/05/18 11:11 PM) Segs [45.0-75.0 %] 56.7 % (09/05/18 11:11 PM) Total Protein 7.8 g/dL [6.4-8.4 g/dL] (09/05/18 11:11 PM) RBC [4.20-5.40 4.40 M/CMM M/CMM] (09/05/18 11:11 PM) RDW [11.5-14.5 %] 13.8 % (09/05/18 11:11 PM) Bili Total [0.2-1.3 0.5 mg/dL mg/dL] (09/05/18 11:11 PM) WBC [3.7-10.4 K/CMM] 6.9 K/CMM (09/05/18 11:11 PM) 1Result Comment: The eGFR [...] be mul tiplied by the estimated BMI. Immunizations Given and Recorded Vaccine Date Status [...]
--- OUTSIDE RECORDS SUMMARY | 2019-03-31 09:00 | XMS REPORT | Summary of Care ---
Author Author [facility] Address Unknown Phone Unavailable Encounter HQ Encntr_geraldo(FIN) [id number] Date(s): 02/03/19 - 03/04/19 [facility] Discharge Disposition: Home or Self Care Attending [...]
--- OUTSIDE RECORDS SUMMARY | 2019-03-31 09:00 | XMS REPORT | Summary of Care ---
Author Author [facility] Organization [facility] Address Unknown Phone Unavailable Encounter HQ Alice(GILBERTO) [id number] Date(s): 03/21/19 - 03/21/19 [facility] [address] [address]- [phone] Attending Physician: Kamlesh Vegas MD Referring Physician: [...]
--- OUTSIDE RECORDS SUMMARY | 2019-03-31 09:00 | XMS REPORT | Summary of Care ---
Author Author [facility] Organization [facility] Address Unknown Phone Unavailable Encounter HQ Alice(FIN) [id number] Date(s): 03/07/19 - 03/07/19 [facility] [address] [address]- [phone] Discharge Disposition: Home or Self Care Attending [...]
--- OUTSIDE RECORDS SUMMARY | 2019-03-31 09:01 | XMS REPORT | Summary of Care ---
Author Author JESSICA Gracia, CODI Persaud Unknown Address Unknown Phone Unavailable Care Team Providers Care Internet Database Specialist Name Role Phone KASANDRA BLACKWELL UT, CONTRERAS Unavailable Unavailable PAO BLACKWELL UT, THY Unavailable Unavailable CODI LOPEZ MD Unavailable Unavailable Unavailable Unavailable Functional Status Name [...] Bilateral lumbar radiculopathy (724.4, M54.16) Status: Active Closed wedge compression fracture of third lumbar vertebra, initial encounter (805.4, S32.030A) Status: Active Medications Name Dates Details Medications not documented Allergies and Adverse Reactions Name Dates Details Allergy history not documented Status: Procedures Procedure Dates Details XRAY Spine Scoliosis series 94161 Date: 07-Mar-2019 MRI Spine thoracic wo contrast 79894 Date: 07-Mar-2019 [place] Bone Density Scan 85012 Date: 11-Mar-2019 Immunization Name Dates Details Immunizations not documented Social History Name Dates Details Unknown if ever smoked Vital Signs Date Test Result Details No Known Vitals to report Results Date Description Value Details [id number] MRI Spine lumbar wo contrast 56392 Spine lumbar wo contrast MRI SEE NOTES Comments: Spine lumbar wo contrast MRI 03/19/2019 14:34 CDTCLINICAL: M54.5 Low back pain - M54.5 Low back painCOMPARISON: 03/07/2019 radiograph exam.TECHNIQUE: Sagittal T1, sagittal T2 with fat saturation, axial T1 and axial [id number] were obtained. No intravenous gadolinium was given.FINDINGS:The conus medullaris terminates at the T12-L1 level. Mild S-shaped curvature ofthe lumbar spine is present.Mild L3 inferior endplate recent compression fracture is present with moderatemarrow edema. Edema extension to the bilateral L3 pedicles is present, but nopedicular fracture line is identified. There is approximately 25% loss ofvertebral height. No retropulsion is identified.T12-L1: 2.5 mm central superiorly migrated disc extrusion is present with mildcentral canal stenosis. No mass effect on the conus medullaris.L1-L2: 1.2 mm retrolisthesis. No central canal stenosis. Mild left foraminalstenosis due to disc osteophyte complex encroachment.L2-L3: Scattered annular fissures are present. No central canal stenos is.Bhzm-nw-whecmxdz bilateral foraminal stenosis due to disc bulge encroachment.L3-L4: Moderate ligamenta flava thickening is present. 2 mm disc bulge ispresent with mild to moderate central canal stenosis. Severe left foraminalstenosis and moderate right foraminal stenosis due to disc osteophyte complexencroachment. Mass effect on left L3 exiting nerve root is present.L4-L5: Severe disc narrowing. 2 mm retrolisthesis posterior disc osteophytecomplex with mild central canal stenosis. Severe right foraminal stenosis andmoderate left foraminal stenosis due to right greater than left foraminal andextraforaminal osteophytes.L5-S1: No central canal stenosis. Mild left foraminal stenosis due to discosteophyte complex encroachment.IMPRESSION:1. Mild recent L3 vertebral compression fracture with moderate marrow edema. Noretropulsion. If indicated, kyphoplasty or vertebroplasty may be performed fortherapeutic pain relief and structural support.2. T12-L1 central superiorly migrated extrusion with mild samuel tral canalstenosis.3. L2-L3 mild to moderate bilateral foraminal stenosis.4. L3- L4 rvrm-vo-puxjnuwy central canal stenosis, severe left foraminalstenosis, moderate right foraminal stenosis as above.5. L4-L5 severe right foraminal stenosis and moderate left foraminal stenosis.--Read by: Marcin Lopez MDDictated Date/time: 03/20/19 07:13Electronically Signed by: Marcin Lopez MD 03/20/1910:12FINAL REPORT [id number] [place] Bone Density [employer] [id number] Bone Density [employer] [place] SEE NOTES Comments: BONE DENSITY ASSESSMENT: 03/19/2019CLINICAL DATA: Post menopausal. M54.5 Low back pain, S32.030A Wedgecompression fracture of third lumbar vertebra, initial encounter for closedfracture. M54.5 Low Back Pain, S32.030a Wedge Compression Fracture OfThird Lumbar Vertebra, Initial Encounter For Closed Fracture/M54.5 Low BackPain, S32.030a Wedge Compression Fracture Of Third Lumbar Vertebra, I nitialEncounter For Closed FractureRISK FACTORS: race, history of previous fracture, and previous spine,rib, or hip fractures. FINDINGS:Bone density evaluation was performed 03/19/2019 on the left ultra distalradius and ulna using a Hologic unit. The BMD average for the exam is 0.639 g/cm2. The T- score is -0.90 and the Z-score is 1.20. This matches the WorldHealth Organization's criteria for normal bone density and places the patientwithin normal limits of fracture risk. An additional bone density evaluation was performed 03/19/2019 on the AP L1-C4fcvzrw of spine using a Hologic unit. The BMD average for the exam is 0.968 g/cm2. The T-score is -0.50 and the Z-score is 1.60. This matches the WorldHealth Organization's criteria for normal bone density and places the patientwithin normal limits of fracture risk. IMPRESSION: BONE DENSITY WITHIN NORMAL LIMITSPatient is at normal risk for fracture. This exam was interpreted [id number] for HERB Higgins 15. Aaron Rodney M.D. cm/penrad:03/20/2019 08:32:13 [employer]ilermaker Loftsman(s): Margaret DAVID([place])(M), [facility]--Read by: Drew Light MDDictated Date/time: 03/20/19 08:32Electronically Signed by: Drew Light MD 03/20/1908:32FINAL REPORT Plan of Care Name Dates Details Planned Observations Planned Goals not documented Planned Encounters Appointment; ISHAN ORTEGA P.A. On: 03-Apr-2019 11:30 Instructions Name Dates Details Instructions not documented [...] Diagnosis: Problem not documented On: 27-Jan-2019 10:45 Appointment; CONTRERAS SLAUGHTER M.D. Encounter Diagnosis: Problem not documented On: 07-Mar-2019 14:00 Appointment; CODI LOPEZ M.D. Encounter Diagnosis: Problem not documented On: 11-Mar-2019 13:45
--- NOTE | 2019-03-31 10:37 | Diagnostic Imaging Report ---
Exam: Chest one view Clinical history: Status post Findings: There is no evidence of pulmonary consolidation, pleural effusion, or pneumothorax. The cardiac size is within normal limits. The regional osseous structures are unremarkable. Impression: 1. No radiographic evidence of acute cardiorespiratory disease. Signed by: Dr. Jd Francois MD on 03/31/2019 10:34 AM
--- NOTE | 2019-03-31 10:38 | Diagnostic Imaging Report ---
Exam: Right shoulder 2 views Clinical history: Status post fall Findings: There is no evidence of acute fracture or malalignment. The articular joints are within normal limits. The soft tissue is unremarkable. Impression: 1. No radiographic evidence of acute osseous injury. Signed by: Dr. Jd Francois MD on 03/31/2019 10:35 AM
--- NOTE | 2019-03-31 10:40 | Diagnostic Imaging Report ---
Exam: Left foot 3 views Clinical history: Status post fall Findings: There is no evidence of acute fracture. Hallux valgus deformity is noted. The articular joint are within normal limits. The soft tissue is unremarkable. Impression: 1. No radiographic evidence of acute osseous injury. Signed by: Dr. Jd Francois MD on 03/31/2019 10:37 AM
--- NOTE | 2019-03-31 10:52 | Diagnostic Imaging Report ---
History: Fall, hit the head Comparison studies:CT head and spine 02/15/2019 Technique: Axial images were obtained from the brain and cervical spine. Coronal and sagittal images reconstructed from the axial data. Intravenous contrast: None Dose modulation, iterative reconstruction, and/or weight based adjustment of the mA/kV was utilized to reduce the radiation dose to as low as reasonably achievable. Findings: Head CT: Scalp/skull: No acute abnormalities. No fractures, blastic or lytic lesions. Result the right parietal scalp hematoma. Brain sulci: Mildly prominent. Ventricles: Mildly prominent. No hydrocephalus. Extra-axial spaces: No masses. No fluid collections. Parenchyma: Few bilateral deep white matter hypodensity is likely chronic microvascular ischemic change. No masses, hemorrhage, acute or chronic cortical vascular insults. Sellar/suprasellar region: Partial empty sella configuration. Craniocervical junction: Patent foramen magnum. No Chiari one malformation. Cervical spine CT: Fractures: None. Soft tissues: No gross abnormalities. Atlantoaxial articulation: Degenerative changes without acute abnormality. Alignment: Normal lordosis. No scoliosis. Cervicomedullary junction: No abnormalities. Patent foramen magnum. Vertebrae: No infection or neoplasm. Degenerative changes: Degenerative changes results in moderate right foraminal narrowing at C3-4, moderate right foraminal narrowing at C4-5 and moderate bilateral foraminal narrowing at C5-6, no significant (moderate or severe) canal stenosis or foraminal narrowing. Incidental findings: Small calcification of the ligamentum nuclei. Impression: Head CT: 1. No acute intracranial abnormality. Cervical spine CT: 1. No acute abnormalities. 2. Cannot exclude ligament, spinal cord and or vascular abnormalities on the basis of this examination. Signed by: DR Adryan Russo M.D. on 03/31/2019 10:49 AM
--- NOTE | 2019-03-31 11:23 | Diagnostic Imaging Report ---
History: Fell, back pain Comparison studies: CT had, cervical and lumbar spine 02/15/2019 Technique: Axial images were obtained from T11 through the sacrum. Coronal and sagittal images reconstructed from the axial data. Intravenous contrast: None Dose modulation, iterative reconstruction, and/or weight based adjustment of the mA/kV was utilized to reduce the radiation dose to as low as reasonably achievable. Findings: Number of non-rib bearing vertebral bodies: 5 Alignment: Normal lordosis. No scoliosis. Soft tissues: Mild stranding of the paraspinal soft tissues at L3. Atherosclerotic changes of the abdominal aorta Paraspinal muscles: Fatty infiltration of the paraspinal musculature, with moderate atrophy at the lumbosacral junction. Vertebrae: Compression deformity at L3 inferior endplate with approximately 20-30% loss of central height, not seen on the previous study (02/15/2019). Degenerative changes: L1-L2: No abnormalities. L2-L3: No abnormalities. L3-L4: Mild disc degeneration with vacuum phenomenon and. Disc bulge and mild facet hypertrophy results in canal stenosis, mild right and moderate left foraminal narrowing L4-L5: Disc degeneration with decreased intervertebral space and vacuum disc phenomenon. Diffuse disc bulge and moderate facet hypertrophy results in mild canal stenosis, moderate right and mild left foraminal narrowing L5-S1: Moderate facet hypertrophy with grossly patent canal and mild left foraminal narrowing Sacroiliac joints: Mild degenerative changes. IMPRESSION: 1. Acute/subacute L3 inferior endplate fracture with approximately 20-30 % loss of central height without retropulsion. 2. No other changes compared to the previous exam The above finding was reported and acknowledged by Dr. MARYANNE BAKER at 10:59 AM 03/31/2019. Signed by: DR Adryan Russo M.D. on 03/31/2019 11:20 AM
[2019-03-31] MEDS ORDERED: HYDROCODONE/APAP 5MG-325MG TAB PO ONE (11:30)
[2019-03-31 11:33] VITALS: BP 122/73
== END 2019-03-31 11:44 | disposition home or self-care (01) ==
LOC: ER 08:53
DX: S00.83XA Contusion of other part of head, initial encounter (principal); M54.2 Cervicalgia; S32.030A Wedge compression fracture of third lumbar vertebra, initial encounter for closed fracture; M54.5 Low back pain; M25.511 Pain in right shoulder; M79.672 Pain in left foot; W18.30XA Fall on same level, unspecified, initial encounter; Y92.008 Other place in unspecified non-institutional (private) residence as the place of occurrence of the external cause
CPT/HCPCS: 70450; 71045; 72125; 72131; 99284

== ENCOUNTER 2019-06-06 13:51 | Emergency (ER) | payer MEDICARE ==
[~2019-06-06] VITALS: Ht 180.3 cm; Wt 77.1 kg
--- OUTSIDE RECORDS SUMMARY | 2019-06-06 13:54 | XMS REPORT | Summary of Care ---
Author Author Adali Wayne LVN Organization Unknown Address Unknown Phone Unavailable Care Team Providers Care Customer Relations Assistant Name Role Phone Adali Wayne LVN Unavailable Unavailable KASANDRA BLACKWELL UT, CONTRERAS Unavailable Unavailable PAO BLACKWELL UT, THY Unavailable Unavailable JESSICA BLACKWELL, CODI Beebe Unavailable Unavailable NOAM ALMARAZ, MARTIN Unavailable Unavailable Unavailable Unavailable Functional Status Name [...] vertebra, initial encounter (805.4, S32.030A) Status: Active Osteoporosis (733.00, M81.0) Status: Active Screening for other and unspecified endocrine, nutritional, metabolic and immunity disorders (V77.99, Z13.29) Status: Active Status post kyphoplasty (V45.89, Z98.890) Status: Active Medications Name Dates Details Medications not documented Allergies and Adverse Reactions Name Dates Details Allergy history not documented Status: Procedures Procedure Dates Details Physical Therapy Date: 16-Apr-2019 [QLH] ALBUMIN Date: 03-Apr-2019 [QLH] PTH, INTACT (WITHOUT CALCIUM) Date: 03-Apr-2019 [QLH] TSH, 3RD GENERATION W/REFLEX TO FT4 Date: 03-Apr-2019 [QLH] MAGNESIUM Date: 03-Apr-2019 [QLH] PHOSPHATE ( PHOSPHORUS) Date: 03-Apr-2019 [QLH] ALKALINE PHOSPHATASE, BONE SPECIFIC Date: 03-Apr-2019 [Q] C TELOPEPTIDE (CTX) Date: 03-Apr-2019 [Q] PROCOLLAGEN TYPE I INTACT N TERMINAL PROPEPTIDE Date: 03-Apr-2019 XRAY Spine Scoliosis series 19077 Date: 07-Mar-2019 MRI Spine thoracic wo contrast 32658 Date: 07-Mar-2019 [place] Bone Density Scan 28598 Date: 11-Mar-2019 Immunization Name Dates Details Immunizations not documented Social History Name Dates Details Unknown if ever smoked Vital Signs Date Test Result Details No Known Vitals to report Results Date Description Value Details [id number] [U] XRAY SPINE LUMBOSACRAL 2 OR 3 VWS [id number] XR SPINE LUMBOSACRAL 2 OR 3 VWS Images acquired, not reported on this accession number. Plan of Care Name Dates Details Planned Observations Planned Goals not documented Planned Encounters Appointment; ISHAN ORTEGA, P.AYasmin On: 01-May-2019 11:00 Appointment; MARTIN SANTACRUZ PHarleen On: 21-May-2019 12:40 Instructions Name Dates Details Instructions not documented [...] Diagnosis: Problem not documented On: 11-Mar-2019 13:45 Appointment; SHRUTHI CEDENO M.D. Encounter Diagnosis: Problem not documented On: 25-Mar-2019 14:30 Appointment; CODI LOPEZ M.D. Encounter Diagnosis: Problem not documented On: 02-Apr-2019 7:00 Appointment; ISHAN ORTEGA, PHarleen Encounter Diagnosis: Problem not documented On: 03-Apr-2019 11:30 Appointment; MARTIN SANTACRUZ P.A. Encounter Diagnosis: Problem not documented On: 16-Apr-2019 16:00
--- NOTE | 2019-06-06 14:58 | Diagnostic Imaging Report ---
TECHNIQUE: Frontal, oblique, and lateral views of the right ankle. INDICATION: 68-year-old woman with right ankle pain. COMPARISON: None. FINDINGS: Suboptimal evaluation secondary to overlying bandage material. Questionable cortical irregularity in the lateral malleolus. Joint spaces are within normal limits. Soft tissues are grossly unremarkable. IMPRESSION: Suboptimal evaluation secondary to overlying bandage material. Questionable cortical irregularity in the right lateral malleolus. Fracture cannot be excluded. RECOMMENDATION: Consider repeat right ankle radiographs after removal of overlying bandage material. Signed by: Anny Maldonado MD on 06/06/2019 2:55 PM
[2019-06-06] MEDS ORDERED: KETOROLAC TROMETHAMINE 60 MG/2 ML VIAL IM ONE (15:15)
--- NOTE | 2019-06-06 15:35 | NUR ---
applied posterior splint to right foot. patient called friend for ride home. pt reports that she has a walker and doesn't want crutches.
== END 2019-06-06 17:26 | disposition home or self-care (01) ==
LOC: ER 13:51
DX: S82.64XA Nondisplaced fracture of lateral malleolus of right fibula, initial encounter for closed fracture (principal); W18.30XA Fall on same level, unspecified, initial encounter; Y92.009 Unspecified place in unspecified non-institutional (private) residence as the place of occurrence of the external cause
CPT/HCPCS: 29515; 73610; 99284; J1885

== ENCOUNTER → 2021-02-22 | Outpatient (CLI) | payer MEDICARE ==
[~2021-02-22] MED LIST changes: +REGADENOSON 0.4 MG/5 ML SYR IV ONE
== END ==
LOC: NM 11:00
PROVIDERS: ATTEND Internal Medicine Cardiovascular Disease
DX: R07.9 Chest pain, unspecified (principal)
CPT/HCPCS: 78452; 93017; A9502; J2785